=== PATIENT | male | born 1945 | race Caucasian/White ===

== ENCOUNTER 2025-04-08 08:43 | Inpatient (IN) | payer OTHER ==
[2025-04-08 09:32] LABS: Absolute Lymphocytes (CBC) 0.5 K/uL (0.7-4.9); Hematocrit 31.4 % (39.6-49.0); Hemoglobin 10.3 g/dL (13.6-17.9); MCH 29.1 pg (27.0-35.0); MCHC 33.0 g/dL (32.0-36.0); MCV 88.3 fL (80-100); MPV 11.3 fL (7.6-11.3); Nucleated RBC Absolute Count 0.0 (0-0); Nucleated Red Blood Cells % 0.0 % (0-0); RBC Red Blood Cell Count 3.55 M/uL (4.33-5.43); White Blood Count 9.90 thou/uL (4.3-10.9)
--- NOTE | 2025-04-08 09:32 | EDPHYS ---
Physician Documentation [facility] Name: Washington Miner Age: 79 yrs Sex: Male : 1945 Arrival Date: 04/08/2025 Time: 08:43 Bed 13 Private MD: ED Physician Mariella Marin HPI: 04/08 08:56 This 79 yrs old Male presents to ER via Unassigned with complaints of Hip Injury, Fall sp3 Injury. 08:56 79-year-old male with history of diabetes, hypertension, CAD, on Eliquis now presents sp3 to the ED with a mechanical fall in his bathroom earlier today with left hip pain and deformity who arrives via EMS. No other injuries noted including head injury, neck pain, or other body pain. ROS otherwise negative and patient states no medical prodrome prior to the fall.. Historical: - Allergies: 08:59 No Known Allergies; iw - Home Meds: 10:43 Eliquis 5 mg oral tablet 2 times per day [Active]; atorvastatin 40 mg oral tablet daily iw [Active]; carvedilol 25 mg oral tablet 2 times per day [Active]; hydralazine 100 mg oral tablet 2 times per day [Active]; isosorbide dinitrate 10 mg oral tablet 2 times per day [Active]; aspirin 81 mg Oral capsule daily [Active]; Bumex Oral 2 mg twice a day [Active]; gabapentin 300 mg oral capsule 2 caps 2 times per day [Active]; - PMHx: 08:59 Diabetes mellitus; CAD; iw - PSHx: 08:59 pacemaker/defib; right femoral bypass; left femoral stent; iw - Immunization history:: Adult Immunizations up to date. - Infectious Disease History:: Denies. - Social history:: Smoking status: Patient reports the use of cigarette tobacco products, 1 pack every 3 days. ROS: 08:57 Constitutional: Negative for fever, chills, and weight loss, Eyes: Negative for injury, sp3 pain, redness, and discharge, Cardiovascular: Negative for chest pain, palpitations, and edema, Respiratory: Negative for shortness of breath, cough, wheezing, and pleuritic chest pain, Abdomen/GI: Negative for abdominal pain, nausea, vomiting, diarrhea, and constipation, Back: Negative for injury and pain, Skin: Negative for injury, rash, and discoloration, Neuro: Negative for headache, weakness, numbness, tingling, and seizure, Psych: Negative for depression, anxiety, suicide ideation, homicidal ideation, and hallucinations, Allergy/Immunology: Negative for hives, rash, and allergies, Endocrine: Negative for neck swelling, polydipsia, polyuria, polyphagia, and marked weight changes, Hematologic/Lymphatic: Negative for swollen nodes, abnormal bleeding, and unusual bruising, 08:57 All other systems are negative, Exam: 08:57 Constitutional: This is a well developed, well nourished patient who is awake, alert, sp3 and in no acute distress. Head/Face: Normocephalic, atraumatic. Neck: Trachea midline, no thyromegaly or masses palpated, and no cervical lymphadenopathy. Supple, full range of motion without nuchal rigidity, or vertebral point tenderness. No Meningismus. Chest/axilla: Normal chest wall appearance and motion. Nontender with no deformity. No lesions are appreciated. Cardiovascular: Regular rate and rhythm with a normal S1 and S2. No gallops, murmurs, or rubs. Normal PMI, no JVD. No pulse deficits. Respiratory: Lungs have equal breath sounds bilaterally, clear to auscultation and percussion. No rales, rhonchi or wheezes noted. No increased work of breathing, no retractions or nasal flaring. Abdomen/GI: Soft, non-tender, with normal bowel sounds. No distension or tympany. No guarding or rebound. No evidence of tenderness throughout. Back: No spinal tenderness. No costovertebral tenderness. Full range of motion. Skin: Warm, dry with normal turgor. Normal color with no rashes, no lesions, and no evidence of cellulitis. Neuro: Awake and alert, GCS 15, oriented to person, place, time, and situation. Cranial nerves II-XII grossly intact. Motor strength 5/5 in all extremities. Sensory grossly intact. Cerebellar exam normal. Normal gait. 08:57 Musculoskeletal/extremity: Left hip pain, external rotation and shortening of the leg. Distal pulses are normal.. 09:27 ECG was reviewed by the Attending Physician. Electronic pacemaker with adequate sp3 ventricular capture at 81 bpm Vital Signs: 08:58 BP 136 / 65; Pulse 83; Resp 16; Temp 97.6; Pulse Ox 100% on R/A; Weight 86.18 kg; iw Height 6 ft. 0 in. ; Pain 7/10; 10:48 BP 127 / 64; Pulse 88; Resp 18; Pulse Ox 98% on R/A; iw 08:58 Body Mass Index 25.77 (86.18 kg, 182.88 cm) iw 08:58 Pain Scale: Adult iw MDM: 08:47 Medical Screening Exam initiated sp3 08:57 Data reviewed: vital signs, nurses notes, EMS record, lab test result(s), EKG, sp3 radiologic studies. ED course: 79-year-old male with mechanical fall on left hip injury. Differential diagnosis includes left hip fracture, left hip contusion, other femur fracture, acetabular fracture, among others. Clinically I ruled out any medical event that would incite the fall. Will admit under internal medicine once fracture type is elucidated. Dr. Durand is on-call for orthopedics.. 09:27 ED course: Left intertrochanter fracture noted. Discussed with Dr. Durand who will sp3 await medical clearance for possible surgery tomorrow. Will admit to hospitalist service. Pain is currently controlled.. 04/08 08:48 Order name: Basic Metabolic Panel; Complete Time: 09:58 sp3 04/08 08:48 Order name: CBC with Diff; Complete Time: 10:57 sp3 04/08 08:48 Order name: LFT's; Complete Time: 09:58 sp3 04/08 08:48 Order name: Magnesium; Complete Time: 09:58 sp3 04/08 08:48 Order name: NT PRO-BNP; Complete Time: 09:58 sp3 04/08 08:48 Order name: PT-INR; Complete Time: 09:52 sp3 04/08 08:48 Order name: Troponin HS; Complete Time: 09:58 sp3 04/08 10:49 Order name: CBC Smear Scan; Complete Time: 10:57 EDMS 04/08 08:48 Order name: XRAY Chest (1 view); Complete Time: 09:52 sp3 04/08 08:48 Order name: Hip Left 2 View XRAY; Complete Time: 09:52 sp3 04/08 10:26 Order name: Echo with Doppler EDMS 04/08 08:48 Order name: EKG; Complete Time: 08:51 sp3 04/08 08:48 Order name: Cardiac monitoring; Complete Time: : sp3 04/08 08:48 Order name: EKG - Nurse/Tech; Complete Time: sp3 04/08 08:48 Order name: IV Saline Lock; Complete Time: sp3 04/08 08:48 Order name: Labs collected and sent; Complete Time: sp3 04/08 08:48 Order name: O2 Per Protocol; Complete Time: sp3 04/08 08:48 Order name: O2 Sat Monitoring; Complete Time: sp3 04/08 08:48 Order name: NPO; Complete Time: sp3 Administered Medications: 12:33 Not Given (Patient Refused): morphineor iv 4 mg IVP See Administration Instructions iw over 4 mins; PRN pain x 1 12:33 Not Given (Patient Refused): ondansetron 4 mg IVP See Administration Instructions; over iw 2 minutes x 1 PRN nausea Disposition Summary: 04/08/25 09:31 Hospitalization Ordered Notes: Hospitalization Status: Inpatient Admission sp3 Provider: Eddie Horton sp3 Location: Telemetry/MedSurg (Inpatient) sp3 Condition: Stable sp3 Problem: new sp3 Symptoms: have worsened sp3 Bed/Room Type: Standard sp3 Room Assignment: [facility](04/08/25 10:58) bc6 Diagnosis - Left hip fracture, mechanical fall sp3 Forms: - Medication Reconciliation Form sp3 - SBAR form sp3 - Leadership Thank You Letter sp3 Signatures: Dispatcher [employer] Blanca Ga RN RN Mariella Marin MD MD sp3 Jie Egan bc6 Corrections: (The following items were deleted from the chart) 08:51 08:51 Hip Left 2 View+RAD.RAD.BRZ ordered. JOSESC JOSESC 10:46 08:59 Home Meds: Eliquis 5 mg oral tablet 2 times per day; [facility] 10:46 09:31 Home Meds: atorvastatin oral every day at bedtime; [facility] 46 09:31 Home Meds: carvedilol oral 2 times per day; [facility] 10:46 09:31 Home Meds: Hydralazine Oral daily; [facility] 1046 09:31 Home Meds: Isosorbide Dinitrate Oral; iw 10:58 09:31 sp3 bc6
--- NOTE | 2025-04-08 09:32 | ER ---
Nurse's Notes [facility] Name: Washington Miner Age: 79 yrs Sex: Male : 1945 Arrival Date: 04/08/2025 Time: 08:43 Bed 13 Private MD: Diagnosis: Left hip fracture, mechanical fall Presentation: 04/08 08:46 Chief complaint: EMS states: pt was attempting to stand, change into his day clothes, iw his legs got tangled up and he fell, normally uses a wheelchair due to decreased sensation in legs, he was on the floor for approx 90 minutes, left hip rotated and shortened. 08:46 Acuity: AUGUSTUS 3 iw 08:58 Coronavirus screen: At this time, the client does not indicate any symptoms associated iw with coronavirus-19. Ebola Screen: No symptoms or risks identified at this time. Initial Sepsis Screen: Does the patient meet any 2 criteria? No. Patient's initial sepsis screen is negative. Does the patient have a suspected source of infection? No. Patient's initial sepsis screen is negative. Risk Assessment: Do you want to hurt yourself or someone else? Patient reports no desire to harm self or others. Onset of symptoms was April 08, 2025. 08:58 Method Of Arrival: EMS: [facility] iw Historical: - Allergies: 08:59 No Known Allergies; iw - Home Meds: 10:43 Eliquis 5 mg oral tablet 2 times per day [Active]; atorvastatin 40 mg oral tablet daily iw [Active]; carvedilol 25 mg oral tablet 2 times per day [Active]; hydralazine 100 mg oral tablet 2 times per day [Active]; isosorbide dinitrate 10 mg oral tablet 2 times per day [Active]; aspirin 81 mg Oral capsule daily [Active]; Bumex Oral 2 mg twice a day [Active]; gabapentin 300 mg oral capsule 2 caps 2 times per day [Active]; - PMHx: 08:59 Diabetes mellitus; CAD; iw - PSHx: 08:59 pacemaker/defib; right femoral bypass; left femoral stent; iw - Immunization history:: Adult Immunizations up to date. - Infectious Disease History:: Denies. - Social history:: Smoking status: Patient reports the use of cigarette tobacco products, 1 pack every 3 days. Screenin:48 [facility] ED Fall Risk Assessment (Adult) History of falling in the last 3 months, iw including since admission Yes- single mechanical fall (1 pt) Confusion or Disorientation No (0 pts) Intoxicated or Sedated No (0 pts) Impaired Gait Yes (1 pt) Mobility Assist Device Used Yes (1 pt) Altered Elimination No (0 pt) Score/Fall Risk Level 3 or more points = High Risk Oriented to surroundings, Maintained a safe environment. Abuse screen: Denies threats or abuse. Nutritional screening: No deficits noted. Tuberculosis screening: No symptoms or risk factors identified. Assessment: 09:27 General: Appears in no apparent distress. Behavior is calm, cooperative. Pain: iw Complains of pain in left hip Pain does not radiate. Pain currently is 7 out of 10 on a pain scale. Is continuous. Neuro: Level of Consciousness is awake, alert, obeys commands, Oriented to person, place, time, situation, Moves all extremities. Cardiovascular: Patient's skin is warm and dry. Respiratory: Respiratory effort is even, unlabored, Respiratory pattern is regular, symmetrical. GI: Abdomen is flat, non-distended. Derm: Skin is intact. Musculoskeletal: Range of motion: limited in left hip. 10:46 Reassessment: Patient appears in no apparent distress at this time. iw Vital Signs: 08:58 BP 136 / 65; Pulse 83; Resp 16; Temp 97.6; Pulse Ox 100% on R/A; Weight 86.18 kg; iw Height 6 ft. 0 in. ; Pain 7/10; 10:48 BP 127 / 64; Pulse 88; Resp 18; Pulse Ox 98% on R/A; iw 08:58 Body Mass Index 25.77 (86.18 kg, 182.88 cm) iw 08:58 Pain Scale: Adult iw ED Course: 08:44 Patient arrived in ED. iw 08:45 Blanca Lentz, RN is Primary Nurse. iw 08:47 Mariella Marin MD is Attending Physician. sp3 08:58 Triage completed. iw 09:01 Arm band placed on. iw 09:26 XRAY Chest (1 view) In Process Unspecified. EDMS 09:26 Hip Left 2 View XRAY In Process Unspecified. EDMS 09:26 Initial lab(s) drawn, by me, sent to lab. Maintain EMS IV. Dressing intact. Good blood iw return noted. Site clean \T\ dry. Gauge \T\ site: 20 RAC. Flushed with 10 mL NS. 09:29 Eddie Horton is Hospitalizing Provider. sp3 10:49 Patient has correct armband on for positive identification. Placed in gown. Bed in low iw position. Side rails up X2. Provided Education on: admission. Client placed on continuous cardiac and pulse oximetry monitoring. NIBP monitoring applied. habilitative interventionist on. 12:34 No provider procedures requiring assistance completed. Patient admitted, IV remains in iw place. Administered Medications: 12:33 Not Given (Patient Refused): morphineor iv 4 mg IVP See Administration Instructions iw over 4 mins; PRN pain x 1 12:33 Not Given (Patient Refused): ondansetron 4 mg IVP See Administration Instructions; over iw 2 minutes x 1 PRN nausea Medication: 09:28 VIS not applicable for this client. iw Outcome: :31 Decision to Hospitalize by Provider. sp3 12:34 Admitted to Med/surg accompanied by tech, room 413, iw 12:34 Condition: good 12:34 Discharge instructions given to patient, Instructed on the need for admit, Demonstrated understanding of instructions, 12:34 Patient left the ED. iw Signatures: Dispatcher [employer] EDMS Blanca Lentz RN RN iw Mariella Marin MD MD sp3 Corrections: (The following items were deleted from the chart) 10:46 08:59 Home Meds: Eliquis 5 mg oral tablet 2 times per day; iw iw 10:46 09:31 Home Meds: atorvastatin oral every day at bedtime; iw iw 46 09:31 Home Meds: carvedilol oral 2 times per day; iw iw 10:46 09:31 Home Meds: Hydralazine Oral daily; iw iw :46 09:31 Home Meds: Isosorbide Dinitrate Oral; iw iw
--- NOTE | 2025-04-08 09:38 | RAD REPORT ---
EXAMINATION: ONE VIEW CHEST XR CLINICAL INDICATION: Male, 79 years old., Fall. Pre-op. Hypertension TECHNIQUE: Frontal chest projection is submitted. Examination is limited by patient positioning and t echnique. COMPARISON: No prior exam. FINDINGS: The lungs are well inflated and clear of focal consolidation. Central interstitial prominence. No pn eumothorax or sizable effusion. Moderate cardiomegaly with left chest wall pacer/AICD in place. Mediastinal contours are otherwise unremarkable. IMPRESSION: Findings suggestive of central congestion or CHF.
[2025-04-08 09:39] LABS: PT Prothrombin Time 17.5 SECONDS (10-13.0); Protime INR 1.57
--- NOTE | 2025-04-08 09:40 | RAD REPORT ---
EXAMINATION: Hip Left 2 View CLINICAL INDICATION: Male, 79 years old. BR MAIN DEFORMITY Bed Name: 13 TECHNIQUE: 2 view radiograph of the left hip were obtained. COMPARISON: No prior exam. FINDINGS: Left intertrochanteric comminuted fracture with displaced fragment at the base of the lesse r trochanter. Mild hip joint degenerative changes. No Other focal bone lesion. Vascular calcifications, stents, and surgical clips in place. IMPRESSION: Left intertrochanteric comminuted fracture with displaced fragment at the base of the lesser trochant er.
[2025-04-08 09:55] LABS: ALT/SGPT 23.0 U/L (16-61); AST/SGOT 16.0 U/L (15-37); Albumin 3.2 g/dL (3.4-5.0); Albumin/Globulin Ratio 0.9 (1.1-1.8); Alkaline Phosphatase 106.0 U/L (45-117); Anion Gap 13.4 mEq/L (5.0-15.0); BUN Blood Urea Nitrogen 84.0 mg/dL (7-18); Bilirubin Indirect, Calculated 0.5 mg/dL (0.2-0.8); Globulin 3.7 g/dL (2.3-3.5); Glucose Level 230.0 mg/dL (74-106); Magnesium 2.6 mg/dL (1.6-2.4); NT PRO-BNP 6980.0 pg/mL (<450); Potassium 4.4 mEq/L (3.5-5.1); Troponin High Sensitivity 33.1 pg/mL (<58.9)
[2025-04-08] MEDS ORDERED: MORPHINE 2 MG/ML SYR IV PRN ×2 (10:24→14:29)
[2025-04-08 10:48] LABS: White Blood Cell Scan OK (OK)
[2025-04-08 10:49] LABS: Blood Morphology Comment NOT SEEN (NOT SEEN)
[2025-04-08] MEDS: INSULIN REGULAR (HUMAN) 100 UNIT/ML SQ SCH (12:55)
[2025-04-08] MEDS: HYDROCODONE/APAP 5/325 MG TAB PO PRN (12:55)
--- NOTE | 2025-04-08 13:15 | CON ---
Date of Consultation: 04/08/2025 History Of Present Illness: This is my first time seeing this patient to my knowledge. The patient is normally in a wheelchair; however, he does stand using furniture to become dressed. Unfortunately , his hand slipped on the furniture and he fell injuring his left side. He was seen and examined in the emergency department where he was ruled out for other injuries; however, x-rays demonstrated a co mplex comminuted proximal femur fracture consistent with a multipart intertrochanteric fracture with perhaps subtrochanteric extension. On seeing him today, all his long bones and joints are palpated w ithout pain or crepitation with the exception of pain with any movement or manipulation of his left l ower extremity. He does have a history of bilateral neuropathy. However, the right appears to be wo rse than left, however, I did not see any prior injury to the right lower extremity. Review of x-rays do confirm complex comminuted proximal femur fracture. Assessment: An 79-year-old gentleman who uses a wheelchair, but does stand at times. Now, with a co mplex fracture of the left proximal femur. Risks, benefits, and alternatives of different methods of treating this were discussed with him and at this time, he will be admitted to the hospitalist to un dergo clearance as he does have multiple medical problems by report. Most likely, will proceed with operative closed reduction with intramedullary marielle fixation or other fixation tomorrow. He is on Stefany emerald, but did not take any today and will hold that as well. All of his questions were otherwise inv ited and answered. CHARO Voice ID: [id number] Report ID: [id number]
--- NOTE | 2025-04-08 14:36 | P.HP ---
Certification for Inpatient Patient admitted to: Inpatient With expected LOS: >2 Midnights Patient will require the following post-hospital care: None Practitioner: I am a practitioner with admitting privileges, knowledge of patient current condition, hospital course, and medical plan of care. Services: Services provided to patient in accordance with Admission requirements found in Title 42 Section 412.3 of the Code of Federal Regulations Patient History Date of Service: 04/08/25 Reason for admission: Left hip fracture History of Present Illness: 79-year-old male with history of CHF, atrial fibrillation, CKD 4 presents the emergency department chief complaint of fall, left hip pain. He is typically primarily wheelchair-bound but is able to stand and perform transfers without assistance, he was trying to slide his pants on today when he fell onto his left side which caused a left-sided hip fracture. Patient was evaluated in the emergency department his labs were significant for a creatinine of 3.43, GFR of 17, glucose of 210, troponin of 33.1, BNP of 6980, hip x-ray was performed which showed left intertrochanteric comminuted fracture with displaced fragments at the base of the lesser trochanter, additionally chest x-ray showed findings suggestive of central congestion or CHF. ED physician discussed case with orthopedics, patient will be admitted to the hospitalist service for perioperative evaluation and subsequent management of the left femur fracture Allergies No Known Allergies Allergy (Unverified 04/08/25 10:35) - Past Medical/Surgical History -: CHF -: A-fib -: Insulin-dependent diabetes -: CKD 4 -: PAD -: Pacemaker/defibrillator -: Femoropopliteal bypass - Social History Smoking Status: Current every day smoker Place of Residence: Home Review of Systems 10-point ROS is otherwise unremarkable Musculoskeletal: Leg Pain, Other (Left hip pain) Physical Examination - Vital Signs Temperature: 97.2 F Blood Pressure: 143/63 Pulse: 87 Respirations: 18 Pulse Ox (%): 98 - Physical Exam General: Alert, In no apparent distress, Oriented x3 HEENT: Atraumatic, PERRLA, EOMI, Sclerae nonicteric Neck: Supple, 2+ carotid pulse no bruit, No LAD, Without JVD or thyroid abnormality Respiratory: Clear to auscultation bilaterally, Normal air movement Cardiovascular: Regular rate/rhythm, Normal S1 S2 Gastrointestinal: Normal bowel sounds, No tenderness Musculoskeletal: No tenderness Integumentary: No rashes Neurological: Normal speech, Normal strength at 5/5 x4 extr, Normal affect - Studies Laboratory Data (last 24 hrs) 04/08/25 04/08/25 04/08/25 09:24 09:24 09:24 WBC 9.90 Hgb 10.3 L Hct 31.4 L Plt Count 121 L PT 17.5 H INR 1.57 Sodium 139 Potassium 4.4 BUN 84 H Creatinine 3.43 H Glucose 230 H Magnesium 2.6 H Total Bilirubin 0.7 AST 16 ALT 23 Alkaline Phosphatase 106 Assessment and Plan - Plan Assessment: Left intertrochanteric femur fracture Atrial fibrillation on chronic anticoagulation with pacemaker/defibrillator in place Chronic CHFunknown EF CKD 4 Diabetes mellitus type 2insulin-dependent Neuropathy Hypertension Tobacco use disorder Plan: Left intertrochanteric femur fracture Orthopedics consult, n.p.o. after midnight Preoperative evaluation including cardiology and nephrology consultations placed PT after surgery per Ortho Atrial fibrillation on chronic anticoagulation with pacemaker/defibrillator in place Chronic CHFunknown EF Echocardiogram ordered, cardiology consultation placed Denies chest pain, dyspnea Not grossly overloaded on exam CKD 4 Believe this is similar to his baseline No previous labs available for review at this time Consultations placed for patient's primary silver chaser Diabetes mellitus type 2insulin-dependent ACHS Accu-Chek, sliding scale insulin Neuropathy Hypertension PAD Continue home medications when verified Tobacco use disorder Counseled on need for cessation DVT PPX: SCD Code status: Full Discharge Plan: Home Plan to discharge in: Greater than 2 days - Advance Directives Does patient have a Living Will: No Does patient have a Durable POA for Healthcare: No - Code Status/Comfort Care Code Status Assessed: Yes (Full code) Critical Care: No Time Spent Managing Pts Care (In Minutes): 68
[2025-04-08] MEDS: MORPHINE 4 MG/ML SYR IV PRN (15:00)
--- NOTE | 2025-04-08 17:28 | P.CNS ---
Date of Consult: 04/08/25 Chief Complaint: Left hip fracture History of Present Illness: Patient with PMH of HFrEF S/P ICD/PM placement, NON ischemic in nature, AF, PAD, CKD Stage 4, presented with mechanical fall and left hip fracture, cardiology were consulted for clearance and optimization. patient denies chest pain, no palpitations, no syncope. Allergies No Known Allergies Allergy (Unverified 04/08/25 10:35) Home medications list reviewed: Yes - Past Medical/Surgical History -: CHF -: A-fib -: Insulin-dependent diabetes -: CKD 4 -: PAD -: Pacemaker/defibrillator -: Femoropopliteal bypass - Social History Place of Residence: Home Review of Systems 10-point ROS is otherwise unremarkable Physical Examination Temp Pulse Resp BP Pulse Ox 98.2 F 88 18 129/60 96 04/08/25 16:00 04/08/25 16:00 04/08/25 16:00 04/08/25 16:00 04/08/25 16:00 General: Alert, In no apparent distress HEENT: Atraumatic, PERRLA, Mucous membr. moist/pink, EOMI, Sclerae nonicteric Neck: Supple, 2+ carotid pulse no bruit, No LAD, Without JVD or thyroid abnormality Respiratory: Clear to auscultation bilaterally, Normal air movement Cardiovascular: Regular rate/rhythm, Normal S1 S2 Gastrointestinal: Normal bowel sounds, No tenderness Musculoskeletal: No tenderness Integumentary: No rashes Neurological: Normal gait, Normal speech, Normal tone, Normal affect Lymphatics: No axilla or inguinal lymphadenopathy Laboratory Data (last 24 hrs) 04/08/25 04/08/25 04/08/25 09:24 09:24 09:24 WBC 9.90 Hgb 10.3 L Hct 31.4 L Plt Count 121 L PT 17.5 H INR 1.57 Sodium 139 Potassium 4.4 BUN 84 H Creatinine 3.43 H Glucose 230 H Magnesium 2.6 H Total Bilirubin 0.7 AST 16 ALT 23 Alkaline Phosphatase 106 - Problems (1) Preoperative clearance Current Visit: Yes Status: Acute Plan: Patient with known history of heart failure reduced EF, patient has been worked up for ischemia before and it was ruled out, patient already have a PM/ICD in place, patient with no signs of volume overload and elevated BNP can be secondary to his Advanced kidney disease. Echo has been ordered and it will be done in the morning but that doesn't change the fact that patient is at least Intermediate risk for Cardiovascular problems. No more cardiac intervention needed prior to his surgery. (2) Chronic combined systolic and diastolic heart failure Current Visit: Yes Status: Acute Plan: patient is currently euvolemic on exam advise to reconcile patient home medications. (3) Atrial fibrillation Current Visit: Yes Status: Acute Plan: with history of ablation, agree with holding Eliquis until after surgery but it will needed to be restarted ELOY after surgery.
--- NOTE | 2025-04-08 19:41 | P.CNS ---
Date of Consult: 04/08/25 Reason for Consult: CKD IV Requesting Physician: milton malagon Chief Complaint: Left hip fracture History of Present Illness: 79-year-old male with history of CHF, atrial fibrillation, CKD 4 presents the emergency department chief complaint of fall, left hip pain. He is typically primarily wheelchair-bound but is able to stand and perform transfers without assistance, he was trying to slide his pants on today when he fell onto his left side which caused a left-sided hip fracture. Patient was evaluated in the emergency department his labs were significant for a creatinine of 3.43, GFR of 17, glucose of 210, troponin of 33.1, BNP of 6980, hip x-ray was performed which showed left intertrochanteric comminuted fracture with displaced fragments at the base of the lesser trochanter, additionally chest x-ray showed findings suggestive of central congestion or CHF. ED physician discussed case with orthopedics, patient will be admitted to the hospitalist service for perioperative evaluation and subsequent management of the left femur fracture 08:56 This 79 yrs old Male presents to ER via Unassigned with complaints of Hip Injury, Fall sp3 Injury. 08:56 79-year-old male with history of diabetes, hypertension, CAD, on Eliquis now presents sp3 to the ED with a mechanical fall in his bathroom earlier today with left hip pain and deformity who arrives via EMS. No other injuries noted including head injury, neck pain, or other body pain. ROS otherwise negative and patient states no medical prodrome prior to the fall. Allergies No Known Allergies Allergy (Unverified 04/08/25 10:35) Home medications list reviewed: Yes - Past Medical/Surgical History Diabetic: No -: Systolic Diastolic CHF -: Afib -: DM II with Polyneuropathy -: CKD 4 with Proteinuria (Dr. Francis/ Wes) -: CAD/ PAD/ Carotid Stenosis -: BPH -: Nephrolithiasis -: HLD -: Pacemaker/defibrillator -: Femoropopliteal bypass -: Cholecystectomy - Social History Smoking Status: Former smoker Alcohol use: No CD- Drugs: No Caffeine use: No Place of Residence: Home Review of Systems 10-point ROS is otherwise unremarkable Musculoskeletal: Leg Pain (Left Hip Pain) Physical Examination Temp Pulse Resp BP Pulse Ox 98.2 F 88 18 129/60 96 04/08/25 16:00 04/08/25 16:00 04/08/25 16:00 04/08/25 16:00 04/08/25 16:00 General: In no apparent distress, Oriented x3, Cooperative HEENT: Atraumatic Neck: Supple Respiratory: Normal air movement Cardiovascular: No edema, Regular rate/rhythm Gastrointestinal: Soft and benign, Non-distended Musculoskeletal: No clubbing, No contractures Integumentary: No rashes, No cyanosis Neurological: Normal speech Laboratory Data (last 24 hrs) 04/08/25 04/08/25 04/08/25 09:24 09:24 09:24 WBC 9.90 Hgb 10.3 L Hct 31.4 L Plt Count 121 L PT 17.5 H INR 1.57 Sodium 139 Potassium 4.4 BUN 84 H Creatinine 3.43 H Glucose 230 H Magnesium 2.6 H Total Bilirubin 0.7 AST 16 ALT 23 Alkaline Phosphatase 106 Imagings Data: EXAMINATION: ONE VIEW CHEST XR CLINICAL INDICATION: Male, 79 years old., Fall. Pre-op. Hypertension TECHNIQUE: Frontal chest projection is submitted. Examination is limited by patient positioning and technique. COMPARISON: No prior exam. FINDINGS: The lungs are well inflated and clear of focal consolidation. Central interstitial prominence. No pneumothorax or sizable effusion. Moderate cardiomegaly with left chest wall pacer/AICD in place. Mediastinal contours are otherwise unremarkable. IMPRESSION: Findings suggestive of central congestion or CHF. EXAMINATION: Hip Left 2 View CLINICAL INDICATION: Male, 79 years old. [facility] Bed Name: TECHNIQUE: 2 view radiograph of the left hip were obtained. COMPARISON: No prior exam. FINDINGS: Left intertrochanteric comminuted fracture with displaced fragment at the base of the lesser trochanter. Mild hip joint degenerative changes. No Other focal bone lesion. Vascular calcifications, stents, and surgical clips in place. IMPRESSION: Left intertrochanteric comminuted fracture with displaced fragment at the base of the lesser trochanter. Conclusions/Impression: 79 yo WM presents to the ER with a Left Femur Fracture following a fall CKD IV with Proteinuria -No NSAIDs HTN with CKD/ CHF Paroxysmal Afib -Hold antihypertensives at this time Systolic Diastolic CHF, chronic LVEF 30% -Echocardiogram pending -Low sodium diet DM II with CKD & PolyNeuropathy -RISS -Start Gabapenting BID Anemia in chronic illness/ CKD Thrombocytopenia -Monitor H&H -Retacrit prn CKD MBD Secondary HyperParathyroidism -Start Cholecalciferol Hospitalist and ER notes reviewed Thank you kindly for the consultation
[2025-04-08] MEDS: DOCUSATE NA 100 MG CAP PO SCH (21:33)
[2025-04-08] MEDS: GABAPENTIN 300 MG CAP PO SCH (21:34)
[2025-04-09 05:11] LABS: Absolute Lymphocytes (CBC) 0.7 K/uL (0.7-4.9); Hematocrit 25.2 % (39.6-49.0); Hemoglobin 8.5 g/dL (13.6-17.9); MCH 29.5 pg (27.0-35.0); MCHC 33.6 g/dL (32.0-36.0); MCV 87.7 fL (80-100); MPV 11.3 fL (7.6-11.3); Nucleated RBC Absolute Count 0.0 (0-0); Nucleated Red Blood Cells % 0.0 % (0-0); RBC Red Blood Cell Count 2.88 M/uL (4.33-5.43); White Blood Count 8.40 thou/uL (4.3-10.9)
[2025-04-09 05:26] LABS: Anion Gap 8.1 mEq/L (5.0-15.0); BUN Blood Urea Nitrogen 80.0 mg/dL (7-18); Glucose Level 233.0 mg/dL (74-106); Potassium 4.1 mEq/L (3.5-5.1); Uric Acid 11.1 mg/dL (3.5-7.2)
[2025-04-09] MEDS: BUMETANIDE 1 MG TABLET PO SCH (08:33)
[2025-04-09] MEDS: VITAMIN D 5,000 UNIT CAP PO SCH (08:33)
[2025-04-09 09:12] LABS: Sqamous Epithelial None Seen /HPF (None Seen); Urine Crystals Unidentified Few /HPF (None Seen); Urine Culture Reflex Order REFLEXED; Urine Microscopic Reflex YN ORDER UMIC; Urine WBC Clump Rare /HPF (None Seen); Urine Yeast (Budding) Trace /HPF (None Seen)
[2025-04-09] MEDS ORDERED: FENTANYL CITR 100 MCG/2 ML ONE (09:21)
[2025-04-09] MEDS ORDERED: LIDOCAINE 1% MPF 5 ML VIAL ONE (09:21)
[2025-04-09] MEDS: TRANEXAMIC ACID 1,000 MG/10 ML VIAL IV ONE (09:38)
[2025-04-09] MEDS: NA CHLORIDE 0.9% 1,000 ML ONE (09:42)
[2025-04-09] MEDS ORDERED: EPHEDRINE SULF 50 MG/ML VIAL ONE (10:17)
[2025-04-09] MEDS: CEFAZOLIN SODIUM 1 GM/VIAL ONE (10:25)
--- NOTE | 2025-04-09 10:56 | P.BOP ---
Preoperative diagnosis: left comminuted proximal femur fracture Postoperative diagnosis: same Primary procedure: left SOLEDAD marielle Estimated blood loss: 100 ccs Anesthesia: General Complications: None Transferred to: Recovery Room Condition: Good
[2025-04-09 11:28] LABS: MA/CREAT RATIO 550.0 (< 30.0); UR CREAT 92.0 mg/dL (20-370); UR MICROALBUMIN 50.6 mg/dL (< 1.9)
--- NOTE | 2025-04-09 12:09 | RAD REPORT ---
EXAM: Fluoroscopy use, LEFT HIP RODDING HISTORY: COMPARISON: FINDINGS: Multiple images were sent to PACS, during a fluoroscopically guided procedure. No radiologi st was involved in protocoling or performance of the study, and no radiologist was present for the duration of the procedure. No interpretation of the saved images will be provided. Total fluoroscopy time: 0.6S IMPRESSION: Documentation of fluoroscopy use as above. Transcribed Date/Time: 04/09/2025 12:08 PM
--- NOTE | 2025-04-09 13:55 | ECHO ---
HEIGHT: 5 ft 6 in WEIGHT: 180 lb 0 oz DATE OF STUDY: 04/09/[address]: Jamarcus Andrews NP 2-DIMENSIONAL: YES M.MODE: YES DOPPLER: YES COLOR FLOW: YES TDS: PORTABLE: YES DEFINITY: BUBBLE STUDY: DIAGNOSIS: CONGESTIVE HEART FAILURE CARDIAC HISTORY: CATHERIZATION: SURGERY: PROSTHETIC VALVE: PACEMAKER: MEASUREMENTS (cm) DIASTOLIC (NORMALS) SYSTOLIC (NORMALS) IVSd 1.2 (0.6-1.2) LA Diam 3.9 (1.9-4.0) LVEF 40-45% LVIDd 5.4 (3.5-5.7) LVIDs 4.2 (2.0-3.5) %FS 21% LVPWd 1.2 (0.6-1.2) Ao Diam 2.6 (2.0-3.7) 2 DIMENSIONAL ASSESSMENT: RIGHT ATRIUM: NORMAL LEFT ATRIUM: NORMAL RIGHT VENTRICLE: NORMAL LEFT VENTRICLE: NORMAL TRICUSPID VALVE: MILD TRICUSPID REGURGITATION MITRAL VALVE: MILD MITRAL REGURGITATION PULMONIC VALVE: NORMAL AORTIC VALVE: TRACE AORTIC REGURGITATION PERICARDIAL EFFUSION: NONE AORTIC ROOT: NORMAL LEFT VENTRICULAR WALL MOTION: MODERATE GLOBAL HYPOKINESIS DOPPLER/COLOR FLOW: DIASTOLIC DYFUNCTION COMMENTS: 1. MODERATE REDUCED LEFT VENTRICULAR SYSTOLIC FUNCTION, EJECTION FRACTION 40-45%, MODERATE GLOBAL HYPOKINESIS 2. DIASTOLIC DYSFUNCTION 3. NORMAL FILLING PRESSURE 4. MILD MITRAL REGURGITATION TECHNOLOGIST: LM WILDER
--- NOTE | 2025-04-09 14:58 | P.PN ---
Date of Service: 04/09/25 Subjective: No acute events overnight Now status post surgical repair of his left intertrochanteric femur fracture ROS: 10 point ROS as noted above, otherwise negative Physical exam GEN: Alert, oriented, NAD HEENT: Normal conjunctiva, sclera anicteric CV: Regular rate and rhythm, no edema Pulm: Nonlabored respirations on room air ABD: Soft, nontender, nondistended MSK: Dressing in place to left hip Integumentary: No rashes Neuro: Normal speech, normal affect Vitals reviewed Assessment: Left intertrochanteric femur fracture Atrial fibrillation on chronic anticoagulation with pacemaker/defibrillator in place Chronic CHFunknown EF CKD 4 Diabetes mellitus type 2insulin-dependent Neuropathy Hypertension Tobacco use disorder Plan: Left intertrochanteric femur fracture S/P repair with CR IM 04/09 PT per Ortho Atrial fibrillation on chronic anticoagulation with pacemaker/defibrillator in place Chronic CHFunknown EF Cardiology following Denies chest pain, dyspnea CKD 4 Believe this is similar to his baseline No previous labs available for review at this time 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
[2025-04-09] MEDS: CEFAZOLIN 1 GM in NA CHLORIDE 0.9% 50 ML IVPB SCH (16:39)
[2025-04-09] MEDS ORDERED: ISOSORBIDE DINITRATE 10 MG PO SCH (21:00)
--- NOTE | 2025-04-09 21:28 | P.PN ---
Date of Service: 04/09/25 Vital Signs Temp Pulse Resp BP Pulse Ox 98.3 F 97 H 18 141/67 H 99 04/09/25 16:00 04/09/25 16:00 04/09/25 16:00 04/09/25 16:00 04/09/25 16:00 Medications Hydrocodone Bitart/Acetaminophen (Hydrocodone/Apap 5/325 Mg Tab) 1 tab PO Q6H PRN PRN Reason: Pain scale 5-7 (Moderate) Last Admin: 04/08/25 12:55 Dose: 1 tab Apixaban (Apixaban 2.5 Mg Tablet) 2.5 mg PO BID [facility] Atorvastatin Calcium (Atorvastatin 40 Mg Tab) 40 mg PO BEDTIME [facility] Bumetanide (Bumetanide 1 Mg Tablet) 1 mg PO DAILY [facility] Last Admin: 04/09/25 08:33 Dose: Not Given Carvedilol (Carvedilol 25 Mg Tab) 25 mg PO BID [facility] Cholecalciferol (Vitamin D 5,000 Unit Cap) 5,000 unit PO DAILY [facility] Last Admin: 04/09/25 08:33 Dose: Not Given Docusate Sodium (Docusate Na 100 Mg Cap) 100 mg PO BID [facility] Last Admin: 04/09/25 08:33 Dose: Not Given Gabapentin (Gabapentin 300 Mg Cap) 300 mg PO BID [facility] Last Admin: 04/09/25 08:33 Dose: Not Given Cefazolin Sodium 1 gm/ Sodium (Chloride) 50 mls @ 100 mls/hr IVPB Q8HR [facility]; Protocol Stop: 04/10/25 09:29 Last Admin: 04/09/25 16:39 Dose: 50 mls Insulin Human Regular (Insulin Regular (Human) 100 Unit/Ml) 0 unit SQ ACHS [facility]; Protocol Last Admin: 04/09/25 16:37 Dose: 2 unit Isosorbide Dinitrate (Isosorbide Dinit 5 Mg Tab) 10 mg PO TID [facility] Morphine Sulfate (Morphine 4 Mg/Ml Syr) 2 mg IV Q4H PRN PRN Reason: Pain scale 8-10 (Severe) Last Admin: 04/09/25 04:25 Dose: 2 mg Assessment/ Plan: Nephrology No dyspnea No chest pain No acute events overnight Left hip pain Vitals, medications, blood work and imaging reviewed in the chart General: In no apparent distress, Oriented x3, Cooperative HEENT: Atraumatic Neck: Supple Respiratory: Normal air movement Cardiovascular: No edema, Regular rate/rhythm Gastrointestinal: Soft and benign, Non-distended Musculoskeletal: No clubbing, No contractures Integumentary: No rashes, No cyanosis Neurological: Normal speech Laboratory Data (last 24 hrs) 04/08/25 04/08/25 04/08/25 09:24 09:24 09:24 WBC 9.90 Hgb 10.3 L Hct 31.4 L Plt Count 121 L PT 17.5 H INR 1.57 Sodium 139 Potassium 4.4 BUN 84 H Creatinine 3.43 H Glucose 230 H Magnesium 2.6 H Total Bilirubin 0.7 AST 16 ALT 23 Alkaline Phosphatase 106 Imagings Data: EXAMINATION: ONE VIEW CHEST XR CLINICAL INDICATION: Male, 79 years old., Fall. Pre-op. Hypertension TECHNIQUE: Frontal chest projection is submitted. Examination is limited by patient positioning and technique. COMPARISON: No prior exam. FINDINGS: The lungs are well inflated and clear of focal consolidation. Central interstitial prominence. No pneumothorax or sizable effusion. Moderate cardiomegaly with left chest wall pacer/AICD in place. Mediastinal contours are otherwise unremarkable. IMPRESSION: Findings suggestive of central congestion or CHF. EXAMINATION: Hip Left 2 View CLINICAL INDICATION: Male, 79 years old. [facility] Bed Name: TECHNIQUE: 2 view radiograph of the left hip were obtained. COMPARISON: No prior exam. FINDINGS: Left intertrochanteric comminuted fracture with displaced fragment at the base of the lesser trochanter. Mild hip joint degenerative changes. No Other focal bone lesion. Vascular calcifications, stents, and surgical clips in place. IMPRESSION: Left intertrochanteric comminuted fracture with displaced fragment at the base of the lesser trochanter. LEFT VENTRICULAR WALL MOTION: MODERATE GLOBAL HYPOKINESIS DOPPLER/COLOR FLOW: DIASTOLIC DYFUNCTION COMMENTS: 1. MODERATE REDUCED LEFT VENTRICULAR SYSTOLIC FUNCTION, EJECTION FRACTION 40- 45%, MODERATE GLOBAL HYPOKINESIS 2. DIASTOLIC DYSFUNCTION 3. NORMAL FILLING PRESSURE 4. MILD MITRAL REGURGITATION Conclusions/Impression: 79 yo WM presents to the ER with a Left Femur Fracture following a fall CKD IV with Proteinuria -No NSAIDs HTN with CKD/ CHF Paroxysmal Afib -Continue Coreg Systolic Diastolic CHF, chronic LVEF 30% -Echocardiogram reviewed -Low sodium diet DM II with CKD & PolyNeuropathy -RISS -Continue Gabapenting BID Anemia in chronic illness/ CKD Thrombocytopenia -Monitor H&H -Retacrit prn CKD MBD Secondary HyperParathyroidism -Continue Cholecalciferol Hospitalist note reviewed
--- NOTE | 2025-04-09 21:52 | OP ---
Date of Procedure: 04/09/2025 Surgeon: Diogo Durand MD Preoperative Diagnosis: Left comminuted proximal femur fracture. Postoperative Diagnosis: Left comminuted proximal femur fracture. Procedure: Left closed reduction with intramedullary marielle fixation using Affixus nail system of left comminuted proximal femur fracture. Estimated Blood Loss: 100 cc. Complications: There were no complications. Specimens: No pathology specimens sent. Indications For Operation: Mr. Miner is an 79-year-old male who normally is in a wheelchair, altho ugh he does stand to dress. Unfortunately, his hand slipped off the dresser he was using for support and he fell onto his left lower extremity. He was seen and examined in the emergency department, wa s ruled out for other injuries; however, x-rays demonstrated a comminuted displaced left proximal fem ur fracture. He was admitted under the care of the hospitalist and risks, benefits, and alternatives of different methods of treating this were discussed with him and selection is for left closed reduc tion intramedullary marielle fixation. He says he understands things as presented and wishes to proceed. Description Of Procedure: The patient was taken to the operating room, placed in supine position. G eneral anesthesia was obtained by staff. Following this, he was then transferred to the operative fr acture table. He was then appropriately positioned on the fracture table with all bony prominences b eing checked and C-arm was brought into ensure good AP and lateral views. Following this, the left l ower extremity was then prepped and draped in usual sterile fashion for this procedure and C-arm was brought in to alexandra out the position of the greater trochanter. A vertical incision was made just pro ximal to the greater trochanter. Carefully through skin only. Meticulous hemostasis being maintaine d using Bovie electrocautery. This leads to the fascia and a small incision was made vertically in t he fascia. Upon placement of a finger, finger could easily palpate the tip of the greater trochanter . A starting awl was then used to establish the appropriate starting point. After this, guide marielle w as then placed across the fracture site without difficulty and hand edge bander was then used to establish a further entry port. A size 9 x 130 marielle was selected and placed to appropriate depth. The pin was removed. Cephalomedullary screw was then placed in standard fashion using biplanar C-arm radiograph y to ensure correct placement. Following this, an anti-rotation screw was then placed and checked an d a distal interlocking screw has been placed. After this, the marielle was removed. The fascia was clos ed using Vicryl sutures followed by closure of skin with Vicryl followed by marion. The patient was then placed in Aquacel dressing, awakened, and taken to recovery room in good condition. No complic ations. SE/MODL Voice ID: [id number] Report ID: [id number]
[2025-04-09] MEDS: ISOSORBIDE DINIT 5 MG TAB PO SCH (22:06)
[2025-04-09] MEDS: APIXABAN 2.5 MG TABLET PO SCH (22:07)
[2025-04-09] MEDS: ATORVASTATIN 40 MG TAB PO SCH (22:07)
[2025-04-10 07:26] LABS: Absolute Lymphocytes (CBC) 0.6 K/uL (0.7-4.9); Hematocrit 22.0 % (39.6-49.0); Hemoglobin 7.5 g/dL (13.6-17.9); MCH 29.9 pg (27.0-35.0); MCHC 34.0 g/dL (32.0-36.0); MCV 88.0 fL (80-100); MPV 10.9 fL (7.6-11.3); Nucleated RBC Absolute Count 0.0 (0-0); Nucleated Red Blood Cells % 0.0 % (0-0); RBC Red Blood Cell Count 2.49 M/uL (4.33-5.43); White Blood Count 8.80 thou/uL (4.3-10.9)
[2025-04-10 07:36] LABS: Anion Gap 11.3 mEq/L (5.0-15.0); BUN Blood Urea Nitrogen 85.0 mg/dL (7-18); Glucose Level 340.0 mg/dL (74-106); Potassium 4.3 mEq/L (3.5-5.1)
--- NOTE | 2025-04-10 11:55 | P.PN ---
Subjective Date of Service: 04/10/25 Chief Complaint: Left hip fracture Subjective: No C/O voiced (patient is s/p surgery, tolerated procedure well) Review of Systems 10-point ROS is otherwise unremarkable Physical Examination - Vital Signs Temperature: 98.5 F Blood Pressure: 112/59 Pulse: 96 Respirations: 18 Pulse Ox (%): 100 - Physical Exam General: Alert, In no apparent distress HEENT: Atraumatic, PERRLA, EOMI Neck: Supple, JVD not distended Respiratory: Clear to auscultation bilaterally, Normal air movement Cardiovascular: Regular rate/rhythm, Normal S1 S2 Gastrointestinal: Normal bowel sounds, No tenderness Musculoskeletal: No tenderness Integumentary: No rashes Neurological: Normal speech, Normal tone, Normal affect Lymphatics: No axilla or inguinal lymphadenopathy - Studies Medications List Reviewed: Yes Assessment And Plan - Current Problems (Diagnosis) (1) Preoperative clearance Current Visit: Yes Status: Acute Plan: Patient already done with surgery and tolerated procedure well. (2) Chronic combined systolic and diastolic heart failure Current Visit: Yes Status: Acute Plan: patient is currently euvolemic on exam continue coreg, isosorbide and bumex continue to monitor volume status. (3) Atrial fibrillation Current Visit: Yes Status: Acute Plan: with history of ablation, tele shows he is paced resume Eliquis 5 mg po BID if ok with surgery cardiology will sign off, please call with any questions.
--- NOTE | 2025-04-10 15:27 | P.PN ---
Date of Service: 04/10/25 Subjective: No acute events overnight Now status post surgical repair of his left intertrochanteric femur fracture ROS: 10 point ROS as noted above, otherwise negative Physical exam GEN: Alert, oriented, NAD HEENT: Normal conjunctiva, sclera anicteric CV: Regular rate and rhythm, no edema Pulm: Nonlabored respirations on room air ABD: Soft, nontender, nondistended MSK: Dressing in place to left hip Integumentary: No rashes Neuro: Normal speech, normal affect Vitals reviewed Assessment: Left intertrochanteric femur fracture Atrial fibrillation on chronic anticoagulation with pacemaker/defibrillator in place Acute blood loss anemia Chronic CHFunknown EF CKD 4 Diabetes mellitus type 2insulin-dependent Neuropathy Hypertension Tobacco use disorder Plan: Left intertrochanteric femur fracture S/P repair with CR IM 04/09 PT per Ortho-working with PT, may need SNF Atrial fibrillation on chronic anticoagulation with pacemaker/defibrillator in place Chronic CHFunknown EF Cardiology following Denies chest pain, dyspnea Acute blood loss anemia Repeat CBC in the morning CKD 4 Believe this is similar to his baseline No previous labs available for review at this time 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
[2025-04-10] MEDS: INSULIN REGULAR (HUMAN) 100 UNIT/ML SQ SCH (16:32)
--- NOTE | 2025-04-10 20:16 | P.PN ---
Date of Service: 04/10/25 Vital Signs Temp Pulse Resp BP Pulse Ox 97.5 F 99 H 18 107/57 L 100 04/10/25 16:00 04/10/25 16:00 04/10/25 16:00 04/10/25 16:00 04/10/25 16:00 Medications Hydrocodone Bitart/Acetaminophen (Hydrocodone/Apap 5/325 Mg Tab) 1 tab PO Q6H PRN PRN Reason: Pain scale 5-7 (Moderate) Last Admin: 04/08/25 12:55 Dose: 1 tab Apixaban (Apixaban 2.5 Mg Tablet) 2.5 mg PO BID [facility] Last Admin: 04/10/25 09:21 Dose: 2.5 mg Atorvastatin Calcium (Atorvastatin 40 Mg Tab) 40 mg PO BEDTIME [facility] Last Admin: 04/09/25 22:07 Dose: 40 mg Bumetanide (Bumetanide 1 Mg Tablet) 1 mg PO DAILY [facility] Last Admin: 04/10/25 09:21 Dose: 1 mg Carvedilol (Carvedilol 25 Mg Tab) 25 mg PO BID [facility] Last Admin: 04/10/25 09:00 Dose: Not Given Cholecalciferol (Vitamin D 5,000 Unit Cap) 5,000 unit PO DAILY [facility] Last Admin: 04/10/25 09:21 Dose: 5,000 unit Docusate Sodium (Docusate Na 100 Mg Cap) 100 mg PO BID [facility] Last Admin: 04/10/25 09:21 Dose: 100 mg Gabapentin (Gabapentin 300 Mg Cap) 300 mg PO BID [facility] Last Admin: 04/10/25 09:21 Dose: 300 mg Insulin Human Regular (Insulin Regular (Human) 100 Unit/Ml) 0 unit SQ ACHS [facility]; Protocol Last Admin: 04/10/25 16:32 Dose: 7 unit Isosorbide Dinitrate (Isosorbide Dinit 5 Mg Tab) 10 mg PO TID [facility] Last Admin: 04/10/25 13:04 Dose: Not Given Morphine Sulfate (Morphine 4 Mg/Ml Syr) 2 mg IV Q4H PRN PRN Reason: Pain scale 8-10 (Severe) Last Admin: 04/09/25 04:25 Dose: 2 mg Assessment/ Plan: Nephrology No dyspnea No chest pain No acute events overnight Left hip pain Vitals, medications, blood work and imaging reviewed in the chart General: In no apparent distress, Oriented x3, Cooperative HEENT: Atraumatic Neck: Supple Respiratory: Normal air movement Cardiovascular: No edema, Regular rate/rhythm Gastrointestinal: Soft and benign, Non-distended Musculoskeletal: No clubbing, No contractures Integumentary: No rashes, No cyanosis Neurological: Normal speech Laboratory Data (last 24 hrs) 04/08/25 04/08/25 04/08/25 09:24 09:24 09:24 WBC 9.90 Hgb 10.3 L Hct 31.4 L Plt Count 121 L PT 17.5 H INR 1.57 Sodium 139 Potassium 4.4 BUN 84 H Creatinine 3.43 H Glucose 230 H Magnesium 2.6 H Total Bilirubin 0.7 AST 16 ALT 23 Alkaline Phosphatase 106 Imagings Data: EXAMINATION: ONE VIEW CHEST XR CLINICAL INDICATION: Male, 79 years old., Fall. Pre-op. Hypertension TECHNIQUE: Frontal chest projection is submitted. Examination is limited by patient positioning and technique. COMPARISON: No prior exam. FINDINGS: The lungs are well inflated and clear of focal consolidation. Central interstitial prominence. No pneumothorax or sizable effusion. Moderate cardiomegaly with left chest wall pacer/AICD in place. Mediastinal contours are otherwise unremarkable. IMPRESSION: Findings suggestive of central congestion or CHF. EXAMINATION: Hip Left 2 View CLINICAL INDICATION: Male, 79 years old. [facility] Bed Name: 13 TECHNIQUE: 2 view radiograph of the left hip were obtained. COMPARISON: No prior exam. FINDINGS: Left intertrochanteric comminuted fracture with displaced fragment at the base of the lesser trochanter. Mild hip joint degenerative changes. No Other focal bone lesion. Vascular calcifications, stents, and surgical clips in place. IMPRESSION: Left intertrochanteric comminuted fracture with displaced fragment at the base of the lesser trochanter. LEFT VENTRICULAR WALL MOTION: MODERATE GLOBAL HYPOKINESIS DOPPLER/COLOR FLOW: DIASTOLIC DYFUNCTION COMMENTS: 1. MODERATE REDUCED LEFT VENTRICULAR SYSTOLIC FUNCTION, EJECTION FRACTION 40- 45%, MODERATE GLOBAL HYPOKINESIS 2. DIASTOLIC DYSFUNCTION 3. NORMAL FILLING PRESSURE 4. MILD MITRAL REGURGITATION Conclusions/Impression: 79 yo WM presents to the ER with a Left Femur Fracture following a fall CKD IV with Proteinuria -No NSAIDs HTN with CKD/ CHF Paroxysmal Afib -Continue Coreg Systolic Diastolic CHF, chronic LVEF 30% -Echocardiogram reviewed -Low sodium diet DM II with CKD & PolyNeuropathy -RISS -Continue Gabapentin BID Anemia in chronic illness/ CKD Thrombocytopenia -Monitor H&H -Retacrit prn CKD MBD Secondary HyperParathyroidism -Continue Cholecalciferol Hospitalist note reviewed
[2025-04-11 04:54] LABS: Hematocrit 21.8 % (39.6-49.0); Hemoglobin 7.4 g/dL (13.6-17.9); MCH 29.8 pg (27.0-35.0); MCHC 34.0 g/dL (32.0-36.0); MCV 87.6 fL (80-100); MPV 11.7 fL (7.6-11.3); RBC Red Blood Cell Count 2.48 M/uL (4.33-5.43); White Blood Count 9.20 thou/uL (4.3-10.9)
[2025-04-11 05:10] LABS: Anion Gap 13.4 mEq/L (5.0-15.0); BUN Blood Urea Nitrogen 107.0 mg/dL (7-18); Glucose Level 250.0 mg/dL (74-106); Potassium 4.4 mEq/L (3.5-5.1)
[2025-04-11] MEDS: NA CHLORIDE 0.9% 1,000 ML IV SCH (08:11)
[2025-04-11] MEDS: INSULIN GLARGINE 100 UNIT/ML SQ SCH ×2 (08:55→22:01)
--- NOTE | 2025-04-11 10:44 | P.PN ---
Date of Service: 04/11/25 Vital Signs Temp Pulse Resp BP Pulse Ox 97.7 F 81 17 102/53 L 100 04/11/25 08:00 04/11/25 08:00 04/11/25 08:00 04/11/25 08:00 04/11/25 08:00 Medications Hydrocodone Bitart/Acetaminophen (Hydrocodone/Apap 5/325 Mg Tab) 1 tab PO Q6H PRN PRN Reason: Pain scale 5-7 (Moderate) Last Admin: 04/11/25 08:11 Dose: 1 tab Apixaban (Apixaban 2.5 Mg Tablet) 2.5 mg PO BID [facility] Last Admin: 04/11/25 08:12 Dose: 2.5 mg Atorvastatin Calcium (Atorvastatin 40 Mg Tab) 40 mg PO BEDTIME [facility] Last Admin: 04/10/25 21:02 Dose: 40 mg Bumetanide (Bumetanide 1 Mg Tablet) 1 mg PO DAILY [facility] Last Admin: 04/10/25 09:21 Dose: 1 mg Cholecalciferol (Vitamin D 5,000 Unit Cap) 5,000 unit PO DAILY [facility] Last Admin: 04/11/25 08:12 Dose: 5,000 unit Docusate Sodium (Docusate Na 100 Mg Cap) 100 mg PO BID [facility] Last Admin: 04/11/25 08:11 Dose: 100 mg Gabapentin (Gabapentin 300 Mg Cap) 300 mg PO BID [facility] Last Admin: 04/11/25 08:11 Dose: 300 mg Sodium Chloride (Ns 1000 Ml Ivbag) 1,000 mls @ 75 mls/hr IV .[id number] [facility] Last Admin: 04/11/25 08:11 Dose: 1,000 mls Sodium Chloride (Sodium Chloride) 250 mls @ 0 mls/hr IV .Q0M [facility] Insulin Glargine (Insulin Glargine 100 Unit/Ml) 10 unit SQ DAILY [facility] Last Admin: 04/11/25 08:55 Dose: 10 unit Insulin Human Regular (Insulin Regular (Human) 100 Unit/Ml) 0 unit SQ ACHS [facility]; Protocol Last Admin: 04/11/25 08:11 Dose: 5 unit Isosorbide Dinitrate (Isosorbide Dinit 5 Mg Tab) 10 mg PO TID [facility] Metoprolol Tartrate (Metoprolol Tar 25 Mg Tab) 25 mg PO BID 6AM 6PM [facility] Morphine Sulfate (Morphine 4 Mg/Ml Syr) 2 mg IV Q4H PRN PRN Reason: Pain scale 8-10 (Severe) Last Admin: 04/09/25 04:25 Dose: 2 mg Assessment/ Plan: Nephrology No dyspnea No chest pain No acute events overnight Left hip pain Vitals, medications, blood work and imaging reviewed in the chart General: In no apparent distress, Oriented x3, Cooperative HEENT: Atraumatic Neck: Supple Respiratory: Normal air movement Cardiovascular: No edema, Regular rate/rhythm Gastrointestinal: Soft and benign, Non-distended Musculoskeletal: No clubbing, No contractures Integumentary: No rashes, No cyanosis Neurological: Normal speech Laboratory Data (last 24 hrs) 04/08/25 04/08/25 04/08/25 09:24 09:24 09:24 WBC 9.90 Hgb 10.3 L Hct 31.4 L Plt Count 121 L PT 17.5 H INR 1.57 Sodium 139 Potassium 4.4 BUN 84 H Creatinine 3.43 H Glucose 230 H Magnesium 2.6 H Total Bilirubin 0.7 AST 16 ALT 23 Alkaline Phosphatase 106 Imagings Data: EXAMINATION: ONE VIEW CHEST XR CLINICAL INDICATION: Male, 79 years old., Fall. Pre-op. Hypertension TECHNIQUE: Frontal chest projection is submitted. Examination is limited by patient positioning and technique. COMPARISON: No prior exam. FINDINGS: The lungs are well inflated and clear of focal consolidation. Central interstitial prominence. No pneumothorax or sizable effusion. Moderate cardiomeg chery with left chest wall pacer/AICD in place. Mediastinal contours are otherwise unremarkable. IMPRESSION: Findings suggestive of central congestion or CHF. EXAMINATION: Hip Left 2 View CLINICAL INDICATION: Male, 79 years old. [facility] DEFORMITY Bed Name: 13 TECHNIQUE: 2 view radiograph of the left hip were obtained. COMPARISON: No prior exam. FINDINGS: Left intertrochanteric comminuted fracture with displaced fragment at the base of the lesser trochanter. Mild hip joint degenerative changes. No Other focal bone lesion. Vascular calcifications, stents, and surgical clips in place. IMPRESSION: Left intertrochanteric comminuted fracture with displaced fragment at the base of the lesser trochanter. LEFT VENTRICULAR WALL MOTION: MODERATE GLOBAL HYPOKINESIS DOPPLER/COLOR FLOW: DIASTOLIC DYFUNCTION COMMENTS: 1. MODERATE REDUCED LEFT VENTRICULAR SYSTOLIC FUNCTION, EJECTION FRACTION 40- 45%, MODERATE GLOBAL HYPOKINESIS 2. DIASTOLIC DYSFUNCTION 3. NORMAL FILLING PRESSURE 4. MILD MITRAL REGURGITATION Conclusions/Impression: 79 yo WM presents to the ER with a Left Femur Fracture following a fall Stage III KADEEM in the setting of hypotension CKD IV with Proteinuria -No NSAIDs -Agree with gentle IVF HTN with CKD/ CHF complicated by hypotension Paroxysmal Afib -Change Coreg to Metoprolol with holding parameters Systolic Diastolic CHF, chronic LVEF 40% -Daily weight -Low sodium diet DM II with CKD & PolyNeuropathy -RISS -Continue Gabapentin BID Anemia in chronic illness/ CKD Thrombocytopenia -Monitor H&H -Retacrit X1 -PRBC prn CKD MBD Secondary HyperParathyroidism -Continue Cholecalciferol Hospitalist note reviewed Case reviewed with the hospitalist team
[2025-04-11] MEDS ORDERED: NA CHLORIDE 0.9% 250 ML IV SCH (11:00)
[2025-04-11] MEDS: EPOETIN ALFA-EPBX 10,000 UNIT/ML VIAL SQ ONE (11:55)
[2025-04-11 13:28] LABS: UR CREAT 193.0 mg/dL (20-370); UR PROTEIN 72.4 mg/dL (<11.9)
--- NOTE | 2025-04-11 15:26 | P.PN ---
Date of Service: 04/11/25 Subjective: Renal function worsening overnight Decreased urine output Blood pressure low this afternoon, will move to ICU for hypotension/close monitoring ROS: 10 point ROS as noted above, otherwise negative Physical exam GEN: Alert, oriented, NAD HEENT: Normal conjunctiva, sclera anicteric CV: Regular rate and rhythm, no edema Pulm: Nonlabored respirations on room air ABD: Soft, nontender, nondistended, Branham catheter in place MSK: Dressing in place to left hip Integumentary: No rashes Neuro: Normal speech, normal affect Vitals reviewed Assessment: Left intertrochanteric femur fracture Atrial fibrillation on chronic anticoagulation with pacemaker/defibrillator in place Acute blood loss anemia Chronic CHFunknown EF CKD 4 Diabetes mellitus type 2insulin-dependent Neuropathy Hypertension Tobacco use disorder Plan: Left intertrochanteric femur fracture S/P repair with CR IM 04/09 PT per Ortho-working with PT Will need SNF at discharge Atrial fibrillation on chronic anticoagulation with pacemaker/defibrillator in place Chronic CHFunknown EF Cardiology following Eliquis continued 04/09 after surgery-okayed with Ortho Denies chest pain, dyspnea Acute blood loss anemia with hypotension Decreased urine output, low blood pressures this afternoon Transfusing 1 unit packed red blood cells now with additional IV fluid bolus Moved to ICU for close monitoring CKD 4 Worsening renal function overnight Does not seem overloaded, likely on the dry side IV fluids started, will continue overnight Giving 1 unit of packed red blood cells as well Nephrology following Diabetes mellitus type 2insulin-dependent ACHS Accu-Chek, sliding scale insulin Sliding scale increased to moderate yesterday, adding long-acting insulin today Neuropathy Hypertension PAD Continue home medications when verified Tobacco use disorder Counseled on need for cessation DVT PPX: Eliquis continued Code status: Full Discharge Plan: SNF Plan to discharge in: Greater than 2 days Time Spent Managing Pts Care (In Minutes): 35
[2025-04-11] MEDS: METOPROLOL TAR 25 MG TAB PO SCH (18:00)
[2025-04-11 20:00] LABS: Hematocrit 23.8 % (39.6-49.0); Hemoglobin 7.8 g/dL (13.6-17.9)
[2025-04-11] MEDS: NA CHLORIDE 0.9% 250 ML ONE (21:17)
[2025-04-11] MEDS: INSULIN REGULAR (HUMAN) 100 UNIT/ML ONE (23:32)
[2025-04-12 04:42] LABS: Sqamous Epithelial <5 /HPF (None Seen); Urine Granular Casts 0-5 /LPF (None Seen); Urine Micro Reflex YN NO BILL MICROSCOPIC
[2025-04-12 05:28] LABS: Hematocrit 23.7 % (39.6-49.0); Hemoglobin 8.1 g/dL (13.6-17.9); MCH 30.2 pg (27.0-35.0); MCHC 34.0 g/dL (32.0-36.0); MCV 88.8 fL (80-100); MPV 12.1 fL (7.6-11.3); RBC Red Blood Cell Count 2.67 M/uL (4.33-5.43); White Blood Count 8.70 thou/uL (4.3-10.9)
[2025-04-12 06:02] LABS: ALT/SGPT 1176.0 U/L (16-61); AST/SGOT 3034.0 U/L (15-37); Albumin 2.4 g/dL (3.4-5.0); Albumin/Globulin Ratio 0.7 (1.1-1.8); Alkaline Phosphatase 176.0 U/L (45-117); Anion Gap 14.8 mEq/L (5.0-15.0); BUN Blood Urea Nitrogen 122.0 mg/dL (7-18); Bilirubin Indirect, Calculated 0.4 mg/dL (0.2-0.8); Globulin 3.3 g/dL (2.3-3.5); Glucose Level 226.0 mg/dL (74-106); Potassium 4.8 mEq/L (3.5-5.1); Uric Acid 13.2 mg/dL (3.5-7.2)
[2025-04-12 06:04] LABS: MA/CREAT RATIO 123.0 (< 30.0); UR CREAT 135.0 mg/dL (20-370); UR MICROALBUMIN 16.6 mg/dL (< 1.9)
[2025-04-12 09:45] LABS: UR CL RANDOM < 12 mmol/L (25-40); UR POTASSIUM 63.0 mmol/L (20-40); UR SODIUM < 15 mmol/L (27-287)
[2025-04-12] MEDS: CEFTRIAXONE 1,000 MG in NA CHLORIDE 0.9% 50 ML IVPB SCH (10:42)
--- NOTE | 2025-04-12 10:50 | P.PN ---
Nephrology note (S) Pt seen in the ICU, afebrile, hemodynamically stable, awake, alert, no acute CP or dyspnea voiced, pain controlled, no abd pain or N/V reported. Worsened renal function tests discussed, pt has been aware of SUPPLY MANAGER/dialysis risks/needs for some time, agreeable to placement of a TDC and initiation of HD on this admission Vitals, medications, blood work and imaging reviewed in the chart General: In no apparent distress, NAD, elderly, pale HEENT: Atraumatic, sclera anicteric, not on O2 Neck: Supple Respiratory: Normal air movement, non tachypnec, b/l air entry Cardiovascular: No edema, Regular rate/rhythm mostly Gastrointestinal: Soft and benign, Non-distended Musculoskeletal: No contractures, shins non tender Integumentary: No rashes Neurological: Normal speech, awake, alert, conversive, no tremors noted Laboratory Data (last 24 hrs) Reviewed in the EMR Imagings Data: LEFT VENTRICULAR WALL MOTION: MODERATE GLOBAL HYPOKINESIS DOPPLER/COLOR FLOW: DIASTOLIC DYFUNCTION COMMENTS: 1. MODERATE REDUCED LEFT VENTRICULAR SYSTOLIC FUNCTION, EJECTION FRACTION 40- 45%, MODERATE GLOBAL HYPOKINESIS 2. DIASTOLIC DYSFUNCTION 3. NORMAL FILLING PRESSURE 4. MILD MITRAL REGURGITATION Conclusions/Impression: Stage III ARF per ESTEFANIA definition with Cr level > 4 mg/dl on underlying long standing CKD IV, followed by Dr. Francis, multifactorial ARF in the setting of hypotension, anemia, low CO state, other -BUN and Cr levels upward rising, will proceed with plan to initiate SUPPLY MANAGER, will request TDC insertion by surgeon but will have to hold Eliquis for 48h. -Severe azotemia, without uremia, trend, will clear with HD -Dose meds for reduced CrCl -D/c Morphine for pain control as metabolites accumulate, can use other narcotics such as Fentanyl if needed for severe pain Chronic systolic + diastolic dysfunction. Hypotension in the setting of surgery, anesthesia, blood loss, other Paroxysmal Afib -Cont gentle hydration, management otherwise by IM Acute liver injury -Sig elevated LFTs, unclear if related to hypotensive event or other. W/u per IM. Monitor plt count closely Abnormal findings in urine, pyuria, bacteriuria -Cover empirically with Rocephin, f/u final UCx
[2025-04-12] MEDS: NA CHLORIDE 0.9% 1,000 ML IV SCH (11:30)
--- NOTE | 2025-04-12 12:18 | CON ---
Date of Consultation: 04/12/2025 Reason: The patient needs a tunneled dialysis catheter. History Of Present Illness: The patient is an 79-year-old gentleman with multiple medical problems, who came with left hip pain on the 08 of April and he had a left intertrochanteric femur fracture. He went to surgery and had that fixed and now has developed acute renal failure on chronic kidney dis ease and requires a tunneled dialysis catheter. He is awake and alert. No sore throat, runny nose, cough, headaches, or dizziness. No chest pain. No fever or chills. Review of Systems: Otherwise unremarkable. Past Medical History: Significant for CHF, atrial fibrillation, diabetes, chronic kidney disease sta ge 4, peripheral arterial disease. Past Surgical History: Pacemaker defibrillator, femoral-popliteal bypass, recent left hip surgery. Allergies: NO ALLERGIES. Social History: The patient does smoke and does not drink. Family History: Noncontributory. Physical Examination: Vital Signs: Stable. He is afebrile. General: He is awake and alert. Head and Neck: No masses. No JVD. Throat clear. Neck is supple. Chest: Clear. Heart: S1, S2. Abdomen: Soft. Extremities: Neurovascularly intact. Neuro: Nonfocal. Diagnostic Data: White count is 8.7, H and H is 8.1 and 23.7, platelets are 80. His INR is 1.57. T he patient is on Eliquis, which was held today and his chemistry is significant for BUN of 122, creat inine of 4.9. Remainder of the lab reviewed. His AST and ALT are elevated. The Medical Team is add ressing that. Assessment: Acute renal failure on chronic kidney disease, requiring dialysis. Recommendations: The patient has been on Eliquis. We will wait until tomorrow and proceed with plac ement of a tunneled dialysis catheter. The patient understands risks, benefits, alternatives, and ag juani to procedure. /MODL Voice ID: [id number] Report ID: [id number]
--- NOTE | 2025-04-12 14:15 | P.PN ---
Date of Service: 04/12/25 Subjective: Renal function worsening overnight Decreased urine output BP soft but maps >65 ROS: 10 point ROS as noted above, otherwise negative Physical exam GEN: Alert, oriented, NAD HEENT: Normal conjunctiva, sclera anicteric CV: Regular rate and rhythm, no edema Pulm: Nonlabored respirations on room air ABD: Soft, nontender, nondistended, Branham catheter in place MSK: Dressing in place to left hip Integumentary: No rashes Neuro: Normal speech, normal affect Vitals reviewed Assessment: Left intertrochanteric femur fracture Atrial fibrillation on chronic anticoagulation with pacemaker/defibrillator in place Acute blood loss anemia Elevated aminotransferase levels Chronic CHFunknown EF CKD 4 Diabetes mellitus type 2insulin-dependent Neuropathy Hypertension Tobacco use disorder Plan: Left intertrochanteric femur fracture S/P repair with CR IM 04/09 PT per Ortho-working with PT Will need SNF at discharge Atrial fibrillation on chronic anticoagulation with pacemaker/defibrillator in place Chronic CHFunknown EF Cardiology following Eliqulurdes continued 04/09 after surgery-okayed with Ortho now holding due to need for TDC placement Denies chest pain, dyspnea Acute blood loss anemia with hypotension Transfusing 1 unit packed red blood cells 04/11 Monitor H/H daily Elevated aminotransferase levels Suspect this is secondary to low blood pressure/shock liver Continue supportive care, recheck LFTs Liver ultrasound ordered CKD 4 Worsening renal function overnight Does not seem overloaded, likely on the dry side Continue IV fluids Given uremia, worsening CKD will need initiation of renal replacement therapy Plan for tunneled dialysis catheter placement during this hospitalization Nephrology following, general surgery consulted Issa on hold Diabetes mellitus type 2insulin-dependent ACHS Accu-Chek, sliding scale insulin Sliding scale increased to moderate yesterday, long-acting insulin added Neuropathy Hypertension PAD Home meds continued with hold parameters Tobacco use disorder Counseled on need for cessation DVT PPX: Eliquis continued Code status: Full Discharge Plan: SNF Plan to discharge in: Greater than 2 days Time Spent Managing Pts Care (In Minutes): 35
[2025-04-12 17:03] LABS: Hematocrit 24.0 % (39.6-49.0); Hemoglobin 7.9 g/dL (13.6-17.9); MCH 29.5 pg (27.0-35.0); MCHC 33.2 g/dL (32.0-36.0); MCV 89.1 fL (80-100); MPV 12.5 fL (7.6-11.3); RBC Red Blood Cell Count 2.69 M/uL (4.33-5.43); White Blood Count 9.30 thou/uL (4.3-10.9)
[2025-04-12 17:38] LABS: White Blood Cell Scan OK (OK)
[2025-04-12 17:39] LABS: Blood Morphology Comment NOTED (NOT SEEN); Ovalocytes SLIGHT
--- NOTE | 2025-04-12 17:40 | RAD REPORT ---
EXAMINATION: Ultrasound of the liver CLINICAL HISTORY: elevated LFTs COMPARISON: None FINDINGS: The liver has a normal echotexture. Hepatopedal flow is present. A lesion not visualized. Liver appea rs borderline enlarged. Prominence of the IVC and hepatic veins. Small right pleural effusion Spleen 10 cm with a normal echotexture. IMPRESSION: Mild prominence of the hepatic veins and IVC may indicate right heart failure Small right pleural effusion
[2025-04-12 17:50] LABS: ALT/SGPT 1087.0 U/L (16-61); AST/SGOT 1964.0 U/L (15-37); Albumin 2.4 g/dL (3.4-5.0); Albumin/Globulin Ratio 0.8 (1.1-1.8); Alkaline Phosphatase 182.0 U/L (45-117); Anion Gap 17.0 mEq/L (5.0-15.0); BUN Blood Urea Nitrogen 131.0 mg/dL (7-18); Globulin 3.1 g/dL (2.3-3.5); Glucose Level 234.0 mg/dL (74-106); Potassium 5.0 mEq/L (3.5-5.1)
[2025-04-12 19:21] LABS: Hepatitis B Surface Ab - Quant < 3.10 mIU/mL (<8.0); Hepatitis B surface AG Interp. Nonreactive (Nonreactive)
[2025-04-12 19:22] LABS: HBsAG Nonreactive Report Report
[2025-04-13 07:03] LABS: Hematocrit 23.5 % (39.6-49.0); Hemoglobin 7.7 g/dL (13.6-17.9); MCH 29.2 pg (27.0-35.0); MCHC 32.7 g/dL (32.0-36.0); MCV 89.1 fL (80-100); MPV 12.4 fL (7.6-11.3); RBC Red Blood Cell Count 2.64 M/uL (4.33-5.43); White Blood Count 8.70 thou/uL (4.3-10.9)
[2025-04-13 07:17] LABS: PT Prothrombin Time 22.7 SECONDS (10-13.0); Protime INR 2.05
[2025-04-13 07:36] LABS: ALT/SGPT 1042.0 U/L (16-61); AST/SGOT 1976.0 U/L (15-37); Albumin 2.5 g/dL (3.4-5.0); Albumin/Globulin Ratio 0.8 (1.1-1.8); Alkaline Phosphatase 180.0 U/L (45-117); Anion Gap 14.3 mEq/L (5.0-15.0); BUN Blood Urea Nitrogen 131.0 mg/dL (7-18); Globulin 3.2 g/dL (2.3-3.5); Glucose Level 86.0 mg/dL (74-106); Potassium 4.3 mEq/L (3.5-5.1)
[2025-04-13] MEDS: NS 0.9% VIAL 10 ML ONE (07:50)
[2025-04-13] MEDS: LIDOCAINE 1% 20 ML MDV ONE (07:50)
[2025-04-13] MEDS: NA CHLORIDE 0.9% 100 ML ONE (07:51)
[2025-04-13] MEDS ORDERED: BUPIVACAINE 0.5% PF 10 ML VIAL ONE (07:59)
[2025-04-13] MEDS: NA CHLORIDE 0.9% 1,000 ML IV SCH (08:34)
[2025-04-13] MEDS: GABAPENTIN 300 MG CAP PO SCH (08:41)
[2025-04-13] MEDS: BUPIVACAINE 0.5% PF 10 ML VIAL ONE (09:27)
[2025-04-13] MEDS: HEPARIN 5000 UNIT/ML 1 ML VIAL ONE (10:15)
[2025-04-13] MEDS ORDERED: Mastisol Adhesive Liq ONE (10:17)
--- NOTE | 2025-04-13 10:36 | P.OP ---
Date of Service: 04/13/25 Preop diagnosis: End-stage renal disease Postop diagnosis: Same Procedure performed: Placement of right IJ tunneled dialysis catheter with utilization of Doppler and fluoroscopy Surgeon: Miguelito Walker MD Falsework Builder: None Estimated blood loss: Minimal Specimen: None Findings: Normal anatomy Anesthesia: General Complications: None Drains: None Fluids and blood products: Nonapplicable Disposition: Recovery room Operative note: Patient brought to the OR and placed in supine position. General anesthesia began. Patient prepped and draped in the usual sterile fashion. Lidocaine 1% infiltrated locally. Doppler device used to identify the right internal jugular vein. 18-gauge needle used to access the right internal jugular vein and guidewire passed. Position confirmed with fluoroscopy. A counterincision made on the right anterior chest. A tunneling device used to tunnel the catheter between the 2 wounds. Salinger technique used. Tip of the catheter placed in the SVC under fluoroscopy. Catheter flushed with heparin and packed with heparin with good blood flow. 3-0 chromic used to reapproximate subcutaneous tissue and close skin. 3-0 nylon used to secure the catheter to the chest wall. Sterile dressing applied. Patient awakened and taken to recovery room in good general condition. Chest x-ray has been ordered. CC:
--- NOTE | 2025-04-13 11:09 | RAD REPORT ---
EXAMINATION: ONE VIEW CHEST XR CLINICAL INDICATION: S/P tunneled dialysis catheter, rule out TB TECHNIQUE: Frontal chest projection is submitted. Examination is limited by patient positioning and t echnique. COMPARISON: 04/08/2025 FINDINGS: [id number] bilateral pulmonary opacities likely pulmonary edema. Right-sided venous catheter card s been placed its tip in the SVC. No pneumothorax. No finding to raise suspicion for tuberculosis. The heart is moderately enlarged with multilead pacer/defibrillator.
[2025-04-13 11:13] VITALS: O2SAT 98
--- NOTE | 2025-04-13 12:14 | RAD REPORT ---
EXAMINATION: US BILATERAL LOWER EXTREMITY VENOUS DOPPLER CLINICAL INDICATION: R/O DVT TECHNIQUE: Complete bilateral duplex sonography of the BILATERAL lower extremity veins was performed. The examination included compression for vein patency, color Doppler imaging and flow augmentation in response to distal compression of the distal external iliac, common femoral, femoral, popliteal, t ibial, and great and small saphenous veins. COMPARISON: No prior exam. FINDINGS: Duplex sonography testing of the veins of the BILATERAL lower extremity was performed. Color flow jaycob ging shows all veins to be compressible with [id number] color filling. Pulsatile and phasic flow is present within all lower extremity deep and superficial veins examined. IMPRESSION: There is no deep vein or superficial vein thrombosis.
--- NOTE | 2025-04-13 14:55 | RAD REPORT ---
EXAM: Fluoroscopy use, Fluoroscopy <1 Hour HISTORY: DIALYSIS CATHETER PLACEMENT COMPARISON: None FINDINGS: Multiple images were sent to PACS, during a fluoroscopically guided procedure. No radiologi st was involved in protocoling or performance of the study, and no radiologist was present for the duration of the procedure. No interpretation of the saved images will be provided. Total fluoroscopy time: 0.1 minutes. IMPRESSION: Documentation of fluoroscopy use as above.
--- NOTE | 2025-04-13 15:43 | P.PN ---
Date of Service: 04/13/25 Subjective: Moved from ICU yesterday evening Reports pain from neuropathy in his legs is bothering him but this is chronic and unchanged Feels the pain from left hip fracture is improving Had his TDC placement today No other acute events overnight ROS: 10 point ROS as noted above, otherwise negative Physical exam GEN: Alert, oriented, NAD HEENT: Normal conjunctiva, sclera anicteric CV: Regular rate and rhythm, no edema Pulm: Nonlabored respirations on room air ABD: Soft, nontender, nondistended, Branham catheter in place MSK: Dressing in place to left hip Integumentary: No rashes, TDC placed to right chest wall Neuro: Normal speech, normal affect Vitals reviewed Assessment: Left intertrochanteric femur fracture Atrial fibrillation on chronic anticoagulation with pacemaker/defibrillator in place Acute blood loss anemia Elevated aminotransferase levels Chronic CHFunknown EF CKD 4 Diabetes mellitus type 2insulin-dependent Neuropathy Hypertension Tobacco use disorder Plan: Left intertrochanteric femur fracture S/P repair with CR IM 04/09 PT per Ortho-working with PT Will need SNF at discharge Atrial fibrillation on chronic anticoagulation with pacemaker/defibrillator in place Chronic CHFunknown EF Cardiology following Eliquis on hold until a.m. of 04/14 after TDC placement Acute blood loss anemia with hypotension Transfusing 1 unit packed red blood cells 04/11 Monitor H/H daily Elevated aminotransferase levels Suspect this is secondary to low blood pressure/shock liver Continue supportive care, recheck LFTs Liver ultrasound- Mild prominence of the hepatic veins and IVC may indicate right heart failure Small right pleural effusion Monitor LFTs daily CKD 4 Worsening renal function Given uremia, worsening CKD will need initiation of renal replacement therapy TDC placed 04/13 Initiating inpatient renal replacement therapy/HD Eliquis on hold until a.m. of 04/14 then resume Diabetes mellitus type 2insulin-dependent ACHS Accu-Chek, sliding scale insulin Long-acting insulin added Neuropathy Hypertension PAD Home meds continued with hold parameters Tobacco use disorder Counseled on need for cessation DVT PPX: Eliquis continued Code status: Full Discharge Plan: SNF Plan to discharge in: Greater than 2 days Time Spent Managing Pts Care (In Minutes): 35
[2025-04-13] MEDS: ISOSORBIDE DINIT 5 MG TAB PO SCH (16:01)
--- NOTE | 2025-04-13 16:48 | P.PN ---
Nephrology note (S) Pt has been moved out of the ICU, s/p Rt IJ TDC placement, tolerated procedure well, no bleeding from site note, pt denies any acute dyspnea, no sig pain at hip or surgical site, no N/V/D, shi in place, making some urine Vitals, medications, blood work and imaging reviewed in the chart General: In no apparent distress, NAD, elderly, pale HEENT: Atraumatic, sclera anicteric, not on O2 Neck: Supple Respiratory: Normal air movement, non tachypnec, b/l air entry Cardiovascular: No edema, Regular rate/rhythm mostly Gastrointestinal: Soft and benign, Non-distended Musculoskeletal: No contractures, shins non tender Integumentary: No rashes Neurological: Normal speech, awake, alert, conversive, no tremors noted Laboratory Data (last 24 hrs) Reviewed in the EMR Imagings Data: LEFT VENTRICULAR WALL MOTION: MODERATE GLOBAL HYPOKINESIS DOPPLER/COLOR FLOW: DIASTOLIC DYFUNCTION COMMENTS: 1. MODERATE REDUCED LEFT VENTRICULAR SYSTOLIC FUNCTION, EJECTION FRACTION 40- 45%, MODERATE GLOBAL HYPOKINESIS 2. DIASTOLIC DYSFUNCTION 3. NORMAL FILLING PRESSURE 4. MILD MITRAL REGURGITATION Conclusions/Impression: Stage III ARF per ESTEFANIA definition with Cr level > 4 mg/dl on underlying long standing CKD IV, followed by Dr. Francis, multifactorial ARF in the setting of hypotension, anemia, low CO state, other. Non anuric -BUN and Cr levels upward rising, will proceed with plan to initiate LOSS PREVENTION GUARD, did request TDC insertion by surgeon, Issa schaeffer, will resume since no bleeding from TDC site -HD tmrw AM, RN not available today -Severe azotemia, without uremia, trend, will clear with HD -Dose meds for reduced CrCl -D/c Morphine for pain control as metabolites accumulate, can use other narcotics such as Fentanyl if needed for severe pain Chronic systolic + diastolic dysfunction. Hypotension in the setting of surgery, anesthesia, blood loss, other Paroxysmal Afib -S/p intravascular volume, BP no longer low, stop IVF as CXR showing some vascular congestion, resume maintenance diuretics as pt non anuric Acute liver injury -Sig elevated LFTs, unclear if related to hypotensive event or other. W/u per IM. Monitor plt count closely Abnormal findings in urine, pyuria, bacteriuria -Citrobacter on culture, cont Rocephin
[2025-04-13] MEDS: BUMETANIDE 1 MG/4 ML VIAL IV SCH (18:09)
[2025-04-13] MEDS: APIXABAN 2.5 MG TABLET PO SCH (21:31)
[2025-04-14] MEDS: MORPHINE 2 MG/ML SYR IV ONE (05:10)
[2025-04-14 06:20] LABS: Hematocrit 22.0 % (39.6-49.0); Hemoglobin 7.3 g/dL (13.6-17.9); MCH 29.5 pg (27.0-35.0); MCHC 33.4 g/dL (32.0-36.0); MCV 88.5 fL (80-100); MPV 12.2 fL (7.6-11.3); RBC Red Blood Cell Count 2.48 M/uL (4.33-5.43); White Blood Count 7.00 thou/uL (4.3-10.9)
[2025-04-14 07:08] LABS: PT Prothrombin Time 22.5 SECONDS (10-13.0); Protime INR 2.03
[2025-04-14 07:21] LABS: ALT/SGPT 801.0 U/L (16-61); AST/SGOT 1053.0 U/L (15-37); Albumin 2.3 g/dL (3.4-5.0); Albumin/Globulin Ratio 0.7 (1.1-1.8); Alkaline Phosphatase 190.0 U/L (45-117); Anion Gap 16.5 mEq/L (5.0-15.0); BUN Blood Urea Nitrogen 149.0 mg/dL (7-18); Globulin 3.1 g/dL (2.3-3.5); Glucose Level 207.0 mg/dL (74-106); Potassium 4.5 mEq/L (3.5-5.1)
--- NOTE | 2025-04-14 08:07 | P.PN ---
Date of Service: 04/14/25 Subjective: Blood pressures have improved No acute events overnight Going to have his first session of inpatient HD today ROS: 10 point ROS as noted above, otherwise negative Physical exam GEN: Alert, oriented, NAD HEENT: Normal conjunctiva, sclera anicteric CV: Regular rate and rhythm, no edema Pulm: Nonlabored respirations on room air ABD: Soft, nontender, nondistended, Branham catheter in place MSK: Dressing in place to left hip Integumentary: No rashes, TDC placed to right chest wall Neuro: Normal speech, normal affect Vitals reviewed Assessment: Left intertrochanteric femur fracture Atrial fibrillation on chronic anticoagulation with pacemaker/defibrillator in place Acute blood loss anemia Elevated aminotransferase levels Chronic CHFunknown EF 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, uremia Diabetes mellitus type 2insulin-dependent Neuropathy Hypertension Tobacco use disorder Plan: Left intertrochanteric femur fracture S/P repair with CR IM 04/09 PT per Ortho-working with PT Will need SNF at discharge Atrial fibrillation on chronic anticoagulation with pacemaker/defibrillator in place Chronic CHFunknown EF Cardiology following Eliquis on hold now given thrombocytopenia with platelets of 54 this morning and hemoglobin of 7.3 Monitor CBC/platelet daily Acute blood loss anemia with hypotension Transfusing 1 unit packed red blood cells 04/11 Plan to transfuse an additional 1 unit of PRBC today 04/13 with HD Recheck H&H 2 hours after Elevated aminotransferase levels Suspect this is secondary to low blood pressure/shock liver Continue supportive care, recheck LFTs Liver ultrasound- Mild prominence of the hepatic veins and IVC may indicate right heart failure Small right pleural effusion Monitor LFTs daily-improving 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
[2025-04-14] MEDS: NA CHLORIDE 0.9% 250 ML IV ONE (08:39)
[2025-04-14] MEDS: MIDODRINE HCL 5 MG TABLET PO SCH (08:54)
[2025-04-14] MEDS: INSULIN GLARGINE 100 UNIT/ML SQ SCH (09:00)
[2025-04-14] MEDS: ALBUMIN HUMAN 25% 100 ML IV ONE (10:00)
--- NOTE | 2025-04-14 13:08 | P.PN ---
Nephrology note (S) Pt seen at the start of HD, pt does acknowledge some dyspnea but not on O2, BP remains soft at times, no CP or abd pain voiced, plan of care including dialysis discussed Vitals, medications, blood work and imaging reviewed in the chart General: In no apparent distress, NAD, elderly, pale HEENT: Atraumatic, sclera anicteric, not on O2 Neck: Supple Respiratory: Normal air movement, non tachypnec, b/l air entry Cardiovascular: No edema, Regular rate/rhythm mostly Gastrointestinal: Soft and benign, Non-distended Musculoskeletal: No contractures, shins non tender Integumentary: No rashes Neurological: Normal speech, awake, alert, conversive, no tremors noted Laboratory Data (last 24 hrs) Reviewed in the EMR Imagings Data: LEFT VENTRICULAR WALL MOTION: MODERATE GLOBAL HYPOKINESIS DOPPLER/COLOR FLOW: DIASTOLIC DYFUNCTION COMMENTS: 1. MODERATE REDUCED LEFT VENTRICULAR SYSTOLIC FUNCTION, EJECTION FRACTION 40- 45%, MODERATE GLOBAL HYPOKINESIS 2. DIASTOLIC DYSFUNCTION 3. NORMAL FILLING PRESSURE 4. MILD MITRAL REGURGITATION Conclusions/Impression: Stage III ARF per ESTEFANIA definition with Cr level > 4 mg/dl on underlying long standing CKD IV, followed by Dr. Francis, multifactorial ARF in the setting of hypotension, anemia, low CO state, other. Non anuric -BUN and Cr levels upward rising, will proceed with plan to initiate [employer], did request TDC insertion by surgeon, Issa schaeffer, did resume since no bleeding from TDC site but with low H/H, low plt count and other, will defer to IM team on whether to hold -Initial HD today, will plan for daily escalating sessions -Severe azotemia, without uremia, trend, will slowly clear with HD -Dose meds for reduced CrCl -D/c'ed Morphine for pain control as metabolites accumulate Chronic systolic + diastolic dysfunction. Hypotension in the setting of surgery, anesthesia, blood loss, other Paroxysmal Afib -S/p intravascular volume admin earlier, stopped IVF as CXR showing some vascular congestion, resumed maintenance diuretics as pt non anuric but BP remains soft, will employ IV Albumin with HD Acute liver injury -Sig elevated LFTs, unclear if related to hypotensive event or other. W/u per IM. Monitor plt count closely. ALT has peaked and slowly downward trending Abnormal findings in urine, pyuria, bacteriuria -Citrobacter on culture, cont Rocephin Anemia 2nd to surgical losses, CKD, other -Hb holding > 7 but remains low and with his cardiac conditions may seek to target > 8, primary team plans to transfuse 1 unit PRBC. Eliquis resumed earlier, on lower dose, but will have to be cautious with use.
[2025-04-14 14:46] LABS: Blood Morphology Comment NOT SEEN (NOT SEEN); White Blood Cell Scan OK (OK)
[2025-04-15] MEDS: LORazepam 2 MG/ML VIAL IV ONE (02:44)
[2025-04-15 05:04] LABS: Hematocrit 23.1 % (39.6-49.0); Hemoglobin 7.5 g/dL (13.6-17.9); MCH 29.3 pg (27.0-35.0); MCHC 32.5 g/dL (32.0-36.0); MCV 90.2 fL (80-100); MPV 12.2 fL (7.6-11.3); RBC Red Blood Cell Count 2.56 M/uL (4.33-5.43); White Blood Count 9.00 thou/uL (4.3-10.9)
[2025-04-15 05:13] LABS: PT Prothrombin Time 25.7 SECONDS (10-13.0); Protime INR 2.33
[2025-04-15] MEDS: HALOPERIDOL LACT 5 MG/ML INJ IM PRN (05:14)
--- NOTE | 2025-04-15 05:23 | RAD REPORT ---
CLINICAL HISTORY: Acute Confusion COMPARISON: None. TECHNIQUE: CT HEAD WITHOUT IV CONTRAST on 04/15/2025 12:00 AM CDT This exam was performed according to our departmental dose-optimization program, which includes autom ated exposure control, adjustment of the mA and/or kV according to patient size and/or use of iterative reconstruction technique. FINDINGS: There is no acute hemorrhage, mass effect or midline shift. Contreras-white differentiation is preserved. There is no hydrocephalus. There is no significant volume loss for age. The calvarium is intact. Orbits and globes are unremarkable. The paranasal sinuses are clear. Mastoid air cells are clear. IMPRESSION: No acute intracranial findings. Electronically signed by: Diego Bowers MD 04/15/2025 05:19 AM CDT RP Due to temporary technical issues with the [employer]ACS/[employer] reporting system, reports are being norma d by the in-house radiologist without review as a courtesy to ensure prompt reporting the interpreting radiologist is fully responsible for the content of the report. Transcribed Date/Time: 04/15/2025 5:22 AM
[2025-04-15 05:55] LABS: ALT/SGPT 1093.0 U/L (16-61); AST/SGOT 1560.0 U/L (15-37); Albumin 2.6 g/dL (3.4-5.0); Albumin/Globulin Ratio 0.9 (1.1-1.8); Alkaline Phosphatase 217.0 U/L (45-117); Anion Gap 18.7 mEq/L (5.0-15.0); BUN Blood Urea Nitrogen 128.0 mg/dL (7-18); Globulin 3.0 g/dL (2.3-3.5); Glucose Level 205.0 mg/dL (74-106); Potassium 4.7 mEq/L (3.5-5.1)
[2025-04-15] MEDS: ISOSORBIDE DINIT 5 MG TAB PO ONE (06:55)
--- NOTE | 2025-04-15 07:47 | RAD REPORT ---
EXAMINATION: ONE VIEW CHEST XR CLINICAL INDICATION: dyspnea, eval volume status TECHNIQUE: Frontal chest projection is submitted. Examination is limited by patient positioning and t echnique. COMPARISON: 04/13/2025 FINDINGS: Bilateral pulmonary opacities are again noted, greater on the right, likely pulmonary edema. Findings appear similar to comparison study. The heart is moderately enlarged in size. Multilead pacer/defibrillator device present. Right-sided venous catheter tip is in SVC.
--- NOTE | 2025-04-15 08:00 | P.PN ---
Date of Service: 04/15/25 Vital Signs Temp Pulse Resp BP Pulse Ox 98.2 F 85 13 102/55 L 100 04/15/25 00:00 04/15/25 06:00 04/15/25 00:00 04/15/25 06:00 04/15/25 00:00 Medications Hydrocodone Bitart/Acetaminophen (Hydrocodone/Apap 5/325 Mg Tab) 1 tab PO Q6H PRN PRN Reason: Pain scale 5-7 (Moderate) Last Admin: 04/14/25 01:07 Dose: 1 tab Apixaban (Apixaban 2.5 Mg Tablet) 2.5 mg PO BID [facility] Last Admin: 04/13/25 21:31 Dose: 2.5 mg Atorvastatin Calcium (Atorvastatin 40 Mg Tab) 40 mg PO BEDTIME [facility] Last Admin: 04/14/25 22:21 Dose: 40 mg Bumetanide (Bumetanide 1 Mg/4 Ml Vial) 1 mg IV BIDL [facility] Last Admin: 04/14/25 17:00 Dose: Not Given Cholecalciferol (Vitamin D 5,000 Unit Cap) 5,000 unit PO DAILY [facility] Last Admin: 04/14/25 08:54 Dose: 5,000 unit Docusate Sodium (Docusate Na 100 Mg Cap) 100 mg PO BID [facility] Last Admin: 04/14/25 22:21 Dose: 100 mg Gabapentin (Gabapentin 300 Mg Cap) 300 mg PO DAILY [facility] Last Admin: 04/14/25 08:54 Dose: 300 mg Haloperidol Lactate (Haloperidol Lact 5 Mg/Ml Inj) 5 mg IM 1X PRN PRN Reason: SEDATION Last Admin: 04/15/25 05:14 Dose: 5 mg Heparin Sodium (Porcine) (Heparin 1,000 Unit/Ml Vial) 6,000 unit IV EVERY HD PRN PRN Reason: FOR DIALYSIS CATHETER CARE Sodium Chloride (Sodium Chloride) 250 mls @ 0 mls/hr IV .Q0M [facility] Ceftriaxone Sodium 1,000 mg/ (Sodium Chloride) 50 mls @ 100 mls/hr IVPB DAILY [facility]; Protocol Stop: 04/19/25 10:31 Last Admin: 04/14/25 08:53 Dose: 50 mls Insulin Glargine (Insulin Glargine 100 Unit/Ml) 10 unit SQ BID [facility] Last Admin: 04/14/25 21:00 Dose: Not Given Insulin Human Regular (Insulin Regular (Human) 100 Unit/Ml) 0 unit SQ ACHS [facility]; Protocol Last Admin: 04/14/25 21:00 Dose: Not Given Isosorbide Dinitrate (Isosorbide Dinit 5 Mg Tab) 10 mg PO TID [facility] Metoprolol Tartrate (Metoprolol Tar 25 Mg Tab) 25 mg PO BID 6AM 6PM [facility] Last Admin: 04/15/25 06:00 Dose: Not Given Midodrine (Midodrine Hcl 5 Mg Tablet) 5 mg PO TID [facility] Last Admin: 04/14/25 22:21 Dose: 5 mg Assessment/ Plan: Nephrology No dyspnea No chest pain No acute events overnight Fatigue and weakness Vitals, medications, blood work and imaging reviewed in the chart General: In no apparent distress, Oriented x3, Cooperative HEENT: Atraumatic Neck: Supple Respiratory: Normal air movement Cardiovascular: No edema, Regular rate/rhythm Gastrointestinal: Soft and benign, Non-distended Musculoskeletal: No clubbing, No contractures Integumentary: No rashes, No cyanosis Neurological: Normal speech Laboratory Data (last 24 hrs) 04/08/25 04/08/25 04/08/25 09:24 09:24 09:24 WBC 9.90 Hgb 10.3 L Hct 31.4 L Plt Count 121 L PT 17.5 H INR 1.57 Sodium 139 Potassium 4.4 BUN 84 H Creatinine 3.43 H Glucose 230 H Magnesium 2.6 H Total Bilirubin 0.7 AST 16 ALT 23 Alkaline Phosphatase 106 Imagings Data: EXAMINATION: ONE VIEW CHEST XR CLINICAL INDICATION: Male, 79 years old., Fall. Pre-op. Hypertension TECHNIQUE: Frontal chest projection is submitted. Examination is limited by patient positioning and technique. COMPARISON: No prior exam. FINDINGS: The lungs are well inflated and clear of focal consolidation. Central interstitial prominence. No pneumothorax or sizable effusion. Moderate cardiomegaly with left chest wall pacer/AICD in place. Mediastinal contours are otherwise unremarkable. IMPRESSION: Findings suggestive of central congestion or CHF. EXAMINATION: Hip Left 2 View CLINICAL INDICATION: Male, 79 years old. [facility] DEFORM[facility] Bed Name: 13 TECHNIQUE: 2 view radiograph of the left hip were obtained. COMPARISON: No prior exam. FINDINGS: Left intertrochanteric comminuted fracture with displaced fragment at the base of the lesser trochanter. Mild hip joint degenerative changes. No Other focal bone lesion. Vascular calcifications, stents, and surgical clips in place. IMPRESSION: Left intertrochanteric comminuted fracture with displaced fragment at the base of the lesser trochanter. LEFT VENTRICULAR WALL MOTION: MODERATE GLOBAL HYPOKINESIS DOPPLER/COLOR FLOW: DIASTOLIC DYFUNCTION COMMENTS: 1. MODERATE REDUCED LEFT VENTRICULAR SYSTOLIC FUNCTION, EJECTION FRACTION 40- 45%, MODERATE GLOBAL HYPOKINESIS 2. DIASTOLIC DYSFUNCTION 3. NORMAL FILLING PRESSURE 4. MILD MITRAL REGURGITATION Conclusions/Impression: 79 yo WM presents to the ER with a Left Femur Fracture following a fall Stage III KADEEM in the setting of hypotension may be ATN CKD IV with Proteinuria -No NSAIDs -TDC placed by Dr. Walker 04-13-25 -HD initiated 04-14-25 -Continue HD as ordered; seen and examined on HD HTN with CKD/ CHF complicated by hypotension Paroxysmal Afib -Continue Metoprolol Systolic Diastolic CHF, chronic LVEF 40% -Daily weight -Low sodium diet -Continue Bumex DM II with CKD & PolyNeuropathy -RISS -Continue Gabapentin BID Acute Liver Injury in the setting of hypotension -Monitor LFT Anemia in chronic illness/ CKD Thrombocytopenia -Monitor H&H -Retacrit prn -PRBC prn CKD MBD Secondary HyperParathyroidism -Continue Cholecalciferol Acute Infective Cystitis Citrobacter -Continue Abx Hospitalist note reviewed Case reviewed with the hospitalist team
--- NOTE | 2025-04-15 10:41 | RAD REPORT ---
EXAMINATION: CT ABDOMEN AND PELVIS WITHOUT CONTRAST CLINICAL INDICATION: worsening renal fxn, UTI, r/o obstruction TECHNIQUE: CT abdomen and pelvis was performed, without IV contrast, as per department protocol. Axia l, sagittal and coronal reconstructions were obtained. One or more of the following dose reduction techniques were used: Automated exposure control, adjustment of the mA and kV according to the patien t size, and iterative reconstruction. Unless otherwise specified, incidental findings do not require dedicated imaging follow-up. COMPARISON: No prior exam. FINDINGS: The lack of intravenous contrast limits the sensitivity of this exam for evaluation of solid visceral organs, vascular structures, and retroperitoneum. LOWER CHEST: Linear atelectasis in the right lung base. Moderate right pleural effusion. LIVER:Normal in size and contour. No focal lesion. Cholecystectomy clips. SPLEEN: Normal size. No focal lesion. PANCREAS: No mass, ductal dilation, or vaughn-pancreatic fluid. ADRENALS: Normal; no mass. KIDNEYS AND URETERS: Mildly atrophic in size and contour. No hydronephrosis. URINARY BLADDER: Normal contour. Small air bubble near bladder. GASTROINTESTINAL TRACT: No evidence of bowel obstruction, significant free fluid, free air or abscess . APPENDIX: Normal appendix. LYMPH NODES: No lymphadenopathy. MUSCULOSKELETAL: Hardware proximal left femur with skin marion laterally related to fracture. ADDITIONAL FINDINGS: Aorto iliac atherosclerosis with bilateral iliac stenting noted. IMPRESSION: No acute abnormalities in the abdomen or pelvis, with evaluation limited by lack of IV contrast. Mildly atrophic kidneys without hydronephrosis. Small air bubble in the urinary bladder could be related to recent instrumentation or infection.. Moderate right pleural effusion with atelectasis in the right lung base.
[2025-04-15] MEDS: HALOPERIDOL LACT 5 MG/ML INJ IV ONE (11:51)
[2025-04-15] MEDS: ISOSORBIDE DINIT 5 MG TAB PO SCH (14:00)
[2025-04-15] MEDS: NICOTINE 14 MG/PAT TD SCH (15:59)
--- NOTE | 2025-04-15 17:29 | P.PN ---
Date of Service: 04/15/25 Subjective: Agitated/confused overnight Received Haldol/Ativan Drowsy this morning, confused ROS: 10 point ROS as noted above, otherwise negative Physical exam GEN: Alert, oriented x 1, confused HEENT: Normal conjunctiva, sclera anicteric CV: Regular rate and rhythm, no edema Pulm: Nonlabored respirations on room air ABD: Soft, nontender, nondistended, Branham catheter in place MSK: Dressing in place to left hip Integumentary: No rashes, TDC placed to right chest wall Neuro: Normal speech, normal affect Vitals reviewed Assessment: Metabolic encephalopathy versus delirium UTI Left intertrochanteric femur fracture Atrial fibrillation on chronic anticoagulation with pacemaker/defibrillator in place Acute blood loss anemia Elevated aminotransferase levels Thrombocytopenia Elevated INR Acute on chronic systolic congestive heart failure 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, uremia Diabetes mellitus type 2insulin-dependent Neuropathy Hypertension Tobacco use disorder Plan: Metabolic encephalopathy versus delirium Continue management of uremia with HD Supportive care Continue PT UTI Continue Rocephin Left intertrochanteric femur fracture S/P repair with CR IM 04/09 PT per Ortho-working with PT Will need SNF at discharge Atrial fibrillation on chronic anticoagulation with pacemaker/defibrillator in place Acute on chronic systolic CHF Cardiology and nephrology following Volume management with dialysis Eliquis on hold now given thrombocytopenia and anemia Monitor CBC/platelet daily Acute blood loss anemia with hypotension Transfusing 1 unit packed red blood cells 04/11 Plan to transfuse an additional 1 unit of PRBC today 04/13 with HD Monitor CBC daily Elevated aminotransferase levels Thrombocytopenia Elevated INR Suspect this is secondary to low blood pressure/shock liver Continue supportive care, check LFTs daily Liver ultrasound- Mild prominence of the hepatic veins and IVC may indicate right heart failure Small right pleural effusion Monitor LFTs daily-improving CT abdomen pelvis performed 04/15 no acute findings- Lactate elevated but improving, Blood cultures obtained 04/15-will need to follow ELIQUIS ON HOLD 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
[2025-04-16 06:09] LABS: Hematocrit 26.1 % (39.6-49.0); Hemoglobin 8.8 g/dL (13.6-17.9); MCH 30.0 pg (27.0-35.0); MCHC 33.8 g/dL (32.0-36.0); MCV 88.9 fL (80-100); MPV 11.5 fL (7.6-11.3); RBC Red Blood Cell Count 2.93 M/uL (4.33-5.43); White Blood Count 8.60 thou/uL (4.3-10.9)
[2025-04-16 06:24] LABS: PT Prothrombin Time 22.2 SECONDS (10-13.0); Protime INR 2.0
[2025-04-16 06:28] LABS: ALT/SGPT 752.0 U/L (16-61); AST/SGOT 686.0 U/L (15-37); Albumin 2.4 g/dL (3.4-5.0); Albumin/Globulin Ratio 0.8 (1.1-1.8); Alkaline Phosphatase 215.0 U/L (45-117); Anion Gap 14.9 mEq/L (5.0-15.0); BUN Blood Urea Nitrogen 96.0 mg/dL (7-18); Globulin 2.9 g/dL (2.3-3.5); Glucose Level 143.0 mg/dL (74-106); Potassium 3.9 mEq/L (3.5-5.1)
[2025-04-16 09:32] LABS: Anisocytosis 1+; Blood Morphology Comment NOTED (NOT SEEN); Ovalocytes SLIGHT; Polychromasia SLIGHT; White Blood Cell Scan OK (OK)
[2025-04-16 11:16] LABS: Arterial Blood Carboxyhemoglob 2.4 % (0.0-1.5); Blood Gas Inspired Oxygen 21.0 %; Blood Gas Oxyhemoglobin 94.6 % (94.0-97.0); Blood O2 Saturation 97.8 % (92.0-98.5)
[2025-04-16 11:47] LABS: Folic Acid, (Folate) 15.8 ng/mL (3.1-17.5)
[2025-04-16 12:03] VITALS: BMI 29.0
[2025-04-16] MEDS: BUMETANIDE 1 MG/4 ML VIAL IV SCH (16:28)
--- NOTE | 2025-04-16 17:40 | P.PN ---
Date of Service: 04/16/25 Subjective: Good conversation this morning Appears to be baseline, follow commands Tolerated dialysis today ROS: 10 point ROS as noted above, otherwise negative Physical exam GEN: Awake, alert, oriented x 1 HEENT: Normal conjunctiva, sclera anicteric CV: A-fib with rate controlled, no edema Pulm: Nonlabored respirations on room air ABD: Soft and nontender on palpation, Branham catheter in place MSK: Dressing in place to left hip CDI Integumentary: No rashes, TDC placed to right chest wall Neuro: Normal speech, normal affect Vitals reviewed Assessment: Metabolic encephalopathy versus delirium UTI Left intertrochanteric femur fracture Atrial fibrillation on chronic anticoagulation with pacemaker/defibrillator in place Acute blood loss anemia Elevated aminotransferase levels Thrombocytopenia Elevated INR Acute on chronic systolic congestive heart failure 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, uremia Diabetes mellitus type 2insulin-dependent Neuropathy Hypertension Tobacco use disorder Plan: Metabolic encephalopathy versus delirium Continue management of uremia with HD Supportive care Continue PT Ammonia 18, vitamin B12 >2000, serum folate 15.8, ABG (pH 7.48, pCO2 30, pO2 89, HCO3 22) UTI Continue Rocephin Left intertrochanteric femur fracture S/P repair with CR IM 04/09 PT per Ortho-working with PT Will need SNF at discharge Atrial fibrillation on chronic anticoagulation with pacemaker/defibrillator in place Acute on chronic systolic CHF Cardiology and nephrology following Volume management with dialysis Eliquis on hold now given thrombocytopenia and anemia Monitor CBC/platelet daily Acute blood loss anemia with hypotension Transfusing 1 unit packed red blood cells 04/11 Plan to transfuse an additional 1 unit of PRBC today 04/13 with HD Monitor CBC daily Elevated aminotransferase levels Thrombocytopenia Elevated INR Suspect this is secondary to low blood pressure/shock liver Continue supportive care, check LFTs daily Liver ultrasound- Mild prominence of the hepatic veins and IVC may indicate right heart failure Small right pleural effusion Monitor LFTs daily-improving CT abdomen pelvis performed 04/15 no acute findings- Lactate elevated but improving, Blood cultures obtained 04/15-will need to follow ELIQUIS ON HOLD 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
--- NOTE | 2025-04-16 20:52 | P.PN ---
Date of Service: 04/16/25 Vital Signs Temp Pulse Resp BP Pulse Ox 97.5 F 96 H 18 128/64 100 04/16/25 16:00 04/16/25 16:00 04/16/25 16:00 04/16/25 16:00 04/16/25 16:00 Medications Hydrocodone Bitart/Acetaminophen (Hydrocodone/Apap 5/325 Mg Tab) 1 tab PO Q6H PRN PRN Reason: Pain scale 5-7 (Moderate) Last Admin: 04/16/25 18:13 Dose: 1 tab Apixaban (Apixaban 2.5 Mg Tablet) 2.5 mg PO BID [facility] Last Admin: 04/13/25 21:31 Dose: 2.5 mg Atorvastatin Calcium (Atorvastatin 40 Mg Tab) 40 mg PO BEDTIME [facility] Last Admin: 04/15/25 21:56 Dose: 40 mg Bumetanide (Bumetanide 1 Mg/4 Ml Vial) 1 mg IV BIDL [facility] Last Admin: 04/16/25 16:28 Dose: 1 mg Cholecalciferol (Vitamin D 5,000 Unit Cap) 5,000 unit PO DAILY [facility] Last Admin: 04/16/25 08:56 Dose: 5,000 unit Docusate Sodium (Docusate Na 100 Mg Cap) 100 mg PO BID [facility] Last Admin: 04/16/25 08:56 Dose: 100 mg Gabapentin (Gabapentin 300 Mg Cap) 300 mg PO DAILY [facility] Last Admin: 04/16/25 08:56 Dose: 300 mg Heparin Sodium (Porcine) (Heparin 1,000 Unit/Ml Vial) 6,000 unit IV EVERY HD PRN PRN Reason: FOR DIALYSIS CATHETER CARE Last Admin: 04/16/25 15:40 Dose: 6,000 unit Sodium Chloride (Sodium Chloride) 250 mls @ 0 mls/hr IV .Q0M [facility] Ceftriaxone Sodium 1,000 mg/ (Sodium Chloride) 50 mls @ 100 mls/hr IVPB DAILY [facility]; Protocol Stop: 04/19/25 10:31 Last Admin: 04/16/25 08:53 Dose: 50 mls Insulin Glargine (Insulin Glargine 100 Unit/Ml) 10 unit SQ BID [facility] Last Admin: 04/16/25 09:02 Dose: 10 unit Insulin Human Regular (Insulin Regular (Human) 100 Unit/Ml) 0 unit SQ ACHS [facility]; Protocol Last Admin: 04/16/25 16:28 Dose: 3 unit Isosorbide Dinitrate (Isosorbide Dinit 5 Mg Tab) 10 mg PO TID [facility] Last Admin: 04/16/25 13:06 Dose: Not Given Metoprolol Tartrate (Metoprolol Tar 25 Mg Tab) 25 mg PO BID 6AM 6PM [facility] Last Admin: 04/16/25 16:28 Dose: 25 mg Midodrine (Midodrine Hcl 5 Mg Tablet) 5 mg PO TID [facility] Last Admin: 04/16/25 13:06 Dose: Not Given Nicotine (Nicotine 14 Mg/Pat) 14 mg TD DAILY [facility] Last Admin: 04/16/25 08:54 Dose: 14 mg Assessment/ Plan: Nephrology No dyspnea No chest pain No acute events overnight Fatigue and weakness Vitals, medications, blood work and imaging reviewed in the chart General: In no apparent distress, Oriented x3, Cooperative HEENT: Atraumatic Neck: Supple Respiratory: Normal air movement Cardiovascular: No edema, Regular rate/rhythm Gastrointestinal: Soft and benign, Non-distended Musculoskeletal: No clubbing, No contractures Integumentary: No rashes, No cyanosis Neurological: Normal speech Laboratory Data (last 24 hrs) 04/08/25 04/08/25 04/08/25 09:24 09:24 09:24 WBC 9.90 Hgb 10.3 L Hct 31.4 L Plt Count 121 L PT 17.5 H INR 1.57 Sodium 139 Potassium 4.4 BUN 84 H Creatinine 3.43 H Glucose 230 H Magnesium 2.6 H Total Bilirubin 0.7 AST 16 ALT 23 Alkaline Phosphatase 106 Imagings Data: EXAMINATION: ONE VIEW CHEST XR CLINICAL INDICATION: Male, 79 years old., Fall. Pre-op. Hypertension TECHNIQUE: Frontal chest projection is submitted. Examination is limited by patient positioning and technique. COMPARISON: No prior exam. FINDINGS: The lungs are well inflated and clear of focal consolidation. Central interstitial prominence. No pneumothorax or sizable effusion. Moderate cardiomegaly with left chest wall pacer/AICD in place. Mediastinal contours are otherwise unremarkable. IMPRESSION: Findings suggestive of central congestion or CHF. EXAMINATION: Hip Left 2 View CLINICAL INDICATION: Male, 79 years old. [facility] Bed Name: TECHNIQUE: 2 view radiograph of the left hip were obtained. COMPARISON: No prior exam. FINDINGS: Left intertrochanteric comminuted fracture with displaced fragment at the base of the lesser trochanter. Mild hip joint degenerative changes. No Other focal bone lesion. Vascular calcifications, stents, and surgical clips in place. IMPRESSION: Left intertrochanteric comminuted fracture with displaced fragment at the base of the lesser trochanter. LEFT VENTRICULAR WALL MOTION: MODERATE GLOBAL HYPOKINESIS DOPPLER/COLOR FLOW: DIASTOLIC DYFUNCTION COMMENTS: 1. MODERATE REDUCED LEFT VENTRICULAR SYSTOLIC FUNCTION, EJECTION FRACTION 40- 45%, MODERATE GLOBAL HYPOKINESIS 2. DIASTOLIC DYSFUNCTION 3. NORMAL FILLING PRESSURE 4. MILD MITRAL REGURGITATION Conclusions/Impression: 79 yo WM presents to the ER with a Left Femur Fracture following a fall Stage III KADEEM in the setting of hypotension may be ATN CKD IV with Proteinuria -No NSAIDs -TDC placed by Dr. Walker 04-13-25 -HD initiated 04-14-25 -Continue HD as ordered HTN with CKD/ CHF complicated by hypotension Paroxysmal Afib -Continue Metoprolol Systolic Diastolic CHF, chronic LVEF 40% -Daily weight -Low sodium diet -Continue Bumex DM II with CKD & PolyNeuropathy -RISS -Continue Gabapentin BID Acute Liver Injury in the setting of hypotension -Monitor LFT Anemia in chronic illness/ CKD Thrombocytopenia -Monitor H&H -Retacrit prn -PRBC prn CKD MBD Secondary HyperParathyroidism -Continue Cholecalciferol Acute Infective Cystitis Citrobacter -Continue Abx Hospitalist note reviewed Case reviewed with the hospitalist team
[2025-04-17 08:24] LABS: Hematocrit 28.4 % (39.6-49.0); Hemoglobin 9.4 g/dL (13.6-17.9); MCH 30.0 pg (27.0-35.0); MCHC 33.3 g/dL (32.0-36.0); MCV 90.1 fL (80-100); MPV 11.4 fL (7.6-11.3); RBC Red Blood Cell Count 3.15 M/uL (4.33-5.43); White Blood Count 8.90 thou/uL (4.3-10.9)
[2025-04-17 08:43] LABS: PT Prothrombin Time 18.3 SECONDS (10-13.0); Protime INR 1.64
[2025-04-17 08:45] LABS: ALT/SGPT 566.0 U/L (16-61); AST/SGOT 311.0 U/L (15-37); Albumin 2.6 g/dL (3.4-5.0); Albumin/Globulin Ratio 0.8 (1.1-1.8); Alkaline Phosphatase 234.0 U/L (45-117); Anion Gap 15.0 mEq/L (5.0-15.0); BUN Blood Urea Nitrogen 86.0 mg/dL (7-18); Globulin 3.2 g/dL (2.3-3.5); Glucose Level 239.0 mg/dL (74-106); Potassium 4.0 mEq/L (3.5-5.1)
[2025-04-17] MEDS: LACTULOSE 20 GM/30 ML UCUP PO SCH (15:18)
--- NOTE | 2025-04-17 16:38 | P.PN ---
Date of Service: 04/17/25 Subjective: Sleeping but awakens easily Creatinine still elevated, Nephrology will contiue with dialysis No new complaints ROS: 10 point ROS as noted above, otherwise negative Physical exam GEN: oriented x 1 HEENT: Normal conjunctiva, sclera anicteric CV: A-fib with rate controlled, no edema Pulm: Nonlabored respirations on room air ABD: Soft and nontender on palpation MSK: Dressing in place to left hip CDI Integumentary: No rashes, TDC placed to right chest wall Neuro: Normal speech, normal affect Vitals reviewed Assessment: Metabolic encephalopathy versus delirium UTI Left intertrochanteric femur fracture Atrial fibrillation on chronic anticoagulation with pacemaker/defibrillator in p lace Acute blood loss anemia Elevated aminotransferase levels Thrombocytopenia Elevated INR Acute on chronic systolic congestive heart failure 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, uremia Diabetes mellitus type 2insulin-dependent Neuropathy Hypertension Tobacco use disorder Plan: Metabolic encephalopathy versus delirium Continue management of uremia with HD Supportive care Continue PT Ammonia 18, vitamin B12 >2000, serum folate 15.8, ABG (pH 7.48, pCO2 30, pO2 89, HCO3 22) UTI Continue Rocephin Left intertrochanteric femur fracture S/P repair with CR IM 04/09 PT per Ortho-working with PT Will need SNF at discharge Atrial fibrillation on chronic anticoagulation with pacemaker/defibrillator in place Acute on chronic systolic CHF Cardiology and nephrology following Volume management with dialysis Eliquis on hold now given thrombocytopenia and anemia Monitor CBC/platelet daily Acute blood loss anemia with hypotension Transfusing 1 unit packed red blood cells 04/11 Plan to transfuse an additional 1 unit of PRBC today 04/13 with HD Monitor CBC daily Elevated aminotransferase levels Thrombocytopenia Elevated INR Suspect this is secondary to low blood pressure/shock liver Continue supportive care, check LFTs daily Liver ultrasound- Mild prominence of the hepatic veins and IVC may indicate right heart failure Small right pleural effusion Monitor LFTs daily-improving CT abdomen pelvis performed 04/15 no acute findings- Lactate elevated but improving, Blood cultures obtained 04/15-will need to follow ELIQUIS ON HOLD 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
--- NOTE | 2025-04-17 21:38 | P.PN ---
Date of Service: 04/17/25 Vital Signs Temp Pulse Resp BP Pulse Ox 98.1 F 68 12 105/56 L 100 04/17/25 16:00 04/17/25 16:55 04/17/25 16:00 04/17/25 16:55 04/17/25 16:00 Medications Hydrocodone Bitart/Acetaminophen (Hydrocodone/Apap 5/325 Mg Tab) 1 tab PO Q6H PRN PRN Reason: Pain scale 5-7 (Moderate) Last Admin: 04/17/25 10:13 Dose: 1 tab Apixaban (Apixaban 2.5 Mg Tablet) 2.5 mg PO BID [facility] Last Admin: 04/13/25 21:31 Dose: 2.5 mg Atorvastatin Calcium (Atorvastatin 40 Mg Tab) 40 mg PO BEDTIME [facility] Last Admin: 04/17/25 21:02 Dose: 40 mg Bumetanide (Bumetanide 1 Mg/4 Ml Vial) 1 mg IV BIDL [facility] Last Admin: 04/17/25 16:55 Dose: 1 mg Cholecalciferol (Vitamin D 5,000 Unit Cap) 5,000 unit PO DAILY [facility] Last Admin: 04/17/25 10:05 Dose: 5,000 unit Docusate Sodium (Docusate Na 100 Mg Cap) 100 mg PO BID [facility] Last Admin: 04/17/25 21:02 Dose: 100 mg Gabapentin (Gabapentin 300 Mg Cap) 300 mg PO DAILY [facility] Last Admin: 04/17/25 10:05 Dose: 300 mg Heparin Sodium (Porcine) (Heparin 1,000 Unit/Ml Vial) 6,000 unit IV EVERY HD PRN PRN Reason: FOR DIALYSIS CATHETER CARE Last Admin: 04/16/25 15:40 Dose: 6,000 unit Sodium Chloride (Sodium Chloride) 250 mls @ 0 mls/hr IV .Q0M [facility] Ceftriaxone Sodium 1,000 mg/ (Sodium Chloride) 50 mls @ 100 mls/hr IVPB DAILY [facility]; Protocol Stop: 04/19/25 10:31 Last Admin: 04/17/25 10:04 Dose: 50 mls Insulin Glargine (Insulin Glargine 100 Unit/Ml) 10 unit SQ BID [facility] Last Admin: 04/17/25 21:02 Dose: 10 unit Insulin Human Regular (Insulin Regular (Human) 100 Unit/Ml) 0 unit SQ ACHS [facility]; Protocol Last Admin: 04/17/25 21:02 Dose: 5 unit Isosorbide Dinitrate (Isosorbide Dinit 5 Mg Tab) 10 mg PO TID [facility] Last Admin: 04/17/25 20:48 Dose: Not Given Lactulose (Lactulose 20 Gm/30 Ml Ucup) 20 gm PO Q6H [facility] Last Admin: 04/17/25 21:02 Dose: 20 gm Metoprolol Tartrate (Metoprolol Tar 25 Mg Tab) 25 mg PO BID 6AM 6PM [facility] Last Admin: 04/17/25 16:56 Dose: 25 mg Midodrine (Midodrine Hcl 5 Mg Tablet) 5 mg PO TID [facility] Last Admin: 04/17/25 21:02 Dose: 5 mg Nicotine (Nicotine 14 Mg/Pat) 14 mg TD DAILY [facility] Last Admin: 04/17/25 10:04 Dose: 14 mg Assessment/ Plan: Nephrology No dyspnea No chest pain No acute events overnight Fatigue and weakness Vitals, medications, blood work and imaging reviewed in the chart General: In no apparent distress, Oriented x3, Cooperative HEENT: Atraumatic Neck: Supple Respiratory: Normal air movement Cardiovascular: No edema, Regular rate/rhythm Gastrointestinal: Soft and benign, Non-distended Musculoskeletal: No clubbing, No contractures. Left hip tenderness Integumentary: No rashes, No cyanosis Neurological: Normal speech Laboratory Data (last 24 hrs) 04/08/25 04/08/25 04/08/25 09:24 09:24 09:24 WBC 9.90 Hgb 10.3 L Hct 31.4 L Plt Count 121 L PT 17.5 H INR 1.57 Sodium 139 Potassium 4.4 BUN 84 H Creatinine 3.43 H Glucose 230 H Magnesium 2.6 H Total Bilirubin 0.7 AST 16 ALT 23 Alkaline Phosphatase 106 Imagings Data: EXAMINATION: ONE VIEW CHEST XR CLINICAL INDICATION: Male, 79 years old., Fall. Pre-op. Hypertension TECHNIQUE: Frontal chest projection is submitted. Examination is limited by patient positioning and technique. COMPARISON: No prior exam. FINDINGS: The lungs are well inflated and clear of focal consolidation. Central interstitial prominence. No pneumothorax or sizable effusion. Moderate cardiomegaly with left chest wall pacer/AICD in place. Mediastinal contours are otherwise unremarkable. IMPRESSION: Findings suggestive of central congestion or CHF. EXAMINATION: Hip Left 2 View CLINICAL INDICATION: Male, 79 years old. [facility] Bed Name: 13 TECHNIQUE: 2 view radiograph of the left hip were obtained. COMPARISON: No prior exam. FINDINGS: Left intertrochanteric comminuted fracture with displaced fragment at the base of the lesser trochanter. Mild hip joint degenerative changes. No Other focal bone lesion. Vascular calcifications, stents, and surgical clips in place. IMPRESSION: Left intertrochanteric comminuted fracture with displaced fragment at the base of the lesser trochanter. LEFT VENTRICULAR WALL MOTION: MODERATE GLOBAL HYPOKINESIS DOPPLER/COLOR FLOW: DIASTOLIC DYFUNCTION COMMENTS: 1. MODERATE REDUCED LEFT VENTRICULAR SYSTOLIC FUNCTION, EJECTION FRACTION 40- 45%, MODERATE GLOBAL HYPOKINESIS 2. DIASTOLIC DYSFUNCTION 3. NORMAL FILLING PRESSURE 4. MILD MITRAL REGURGITATION Conclusions/Impression: 79 yo WM presents to the ER with a Left Femur Fracture following a fall Stage III KADEEM in the setting of hypotension may be ATN CKD IV with Proteinuria -No NSAIDs -TDC placed by Dr. Walker 04-13-25 -HD initiated 04-14-25 -HD TIW HTN with CKD/ CHF complicated by hypotension Paroxysmal Afib -Continue Metoprolol Systolic Diastolic CHF, chronic LVEF 40% -Daily weight -Low sodium diet -Continue Bumex DM II with CKD & PolyNeuropathy -RISS -Continue Gabapentin BID Acute Liver Injury in the setting of hypotension -Monitor LFT Anemia in chronic illness/ CKD Thrombocytopenia -Monitor H&H -Retacrit prn -PRBC prn CKD MBD Secondary HyperParathyroidism -Continue Cholecalciferol Acute Infective Cystitis Citrobacter -Continue Abx Hospitalist note reviewed Case reviewed with the hospitalist team
[2025-04-18] MEDS: MIDODRINE HCL 5 MG TABLET PO SCH (06:18)
[2025-04-18 07:06] LABS: PT Prothrombin Time 15.6 SECONDS (10-13.0); Protime INR 1.39
[2025-04-18 07:27] LABS: ALT/SGPT 425.0 U/L (16-61); AST/SGOT 164.0 U/L (15-37); Albumin 2.6 g/dL (3.4-5.0); Albumin/Globulin Ratio 0.8 (1.1-1.8); Alkaline Phosphatase 219.0 U/L (45-117); Anion Gap 13.5 mEq/L (5.0-15.0); BUN Blood Urea Nitrogen 96.0 mg/dL (7-18); Globulin 3.4 g/dL (2.3-3.5); Glucose Level 102.0 mg/dL (74-106); Magnesium 2.6 mg/dL (1.6-2.4); Potassium 3.5 mEq/L (3.5-5.1); Uric Acid 7.9 mg/dL (3.5-7.2)
--- NOTE | 2025-04-18 08:25 | P.PN ---
Date of Service: 04/18/25 Vital Signs Temp Pulse Resp BP Pulse Ox 97 F 88 14 125/61 97 04/18/25 04:00 04/18/25 04:00 04/18/25 04:00 04/18/25 04:00 04/18/25 04:00 Medications Hydrocodone Bitart/Acetaminophen (Hydrocodone/Apap 5/325 Mg Tab) 1 tab PO Q6H PRN PRN Reason: Pain scale 5-7 (Moderate) Last Admin: 04/17/25 10:13 Dose: 1 tab Apixaban (Apixaban 2.5 Mg Tablet) 2.5 mg PO BID [facility] Last Admin: 04/13/25 21:31 Dose: 2.5 mg Atorvastatin Calcium (Atorvastatin 40 Mg Tab) 40 mg PO BEDTIME [facility] Last Admin: 04/17/25 21:02 Dose: 40 mg Bumetanide (Bumetanide 1 Mg/4 Ml Vial) 1 mg IV BIDL [facility] Last Admin: 04/17/25 16:55 Dose: 1 mg Cholecalciferol (Vitamin D 5,000 Unit Cap) 5,000 unit PO DAILY [facility] Last Admin: 04/17/25 10:05 Dose: 5,000 unit Docusate Sodium (Docusate Na 100 Mg Cap) 100 mg PO BID [facility] Last Admin: 04/17/25 21:02 Dose: 100 mg Gabapentin (Gabapentin 300 Mg Cap) 300 mg PO DAILY [facility] Last Admin: 04/17/25 10:05 Dose: 300 mg Heparin Sodium (Porcine) (Heparin 1,000 Unit/Ml Vial) 6,000 unit IV EVERY HD PRN PRN Reason: FOR DIALYSIS CATHETER CARE Last Admin: 04/16/25 15:40 Dose: 6,000 unit Sodium Chloride (Sodium Chloride) 250 mls @ 0 mls/hr IV .Q0M [facility] Ceftriaxone Sodium 1,000 mg/ (Sodium Chloride) 50 mls @ 100 mls/hr IVPB DAILY [facility]; Protocol Stop: 04/19/25 10:31 Last Admin: 04/17/25 10:04 Dose: 50 mls Insulin Glargine (Insulin Glargine 100 Unit/Ml) 10 unit SQ BID [facility] Last Admin: 04/17/25 21:02 Dose: 10 unit Insulin Human Regular (Insulin Regular (Human) 100 Unit/Ml) 0 unit SQ ACHS [facility]; Protocol Last Admin: 04/17/25 21:02 Dose: 5 unit Isosorbide Dinitrate (Isosorbide Dinit 5 Mg Tab) 10 mg PO TID [facility] Lactulose (Lactulose 20 Gm/30 Ml Ucup) 20 gm PO Q6H [facility] Last Admin: 04/18/25 04:17 Dose: 20 gm Metoprolol Tartrate (Metoprolol Tar 25 Mg Tab) 25 mg PO BID 6AM 6PM [facility] Last Admin: 04/18/25 05:44 Dose: Not Given Midodrine (Midodrine Hcl 5 Mg Tablet) 10 mg PO [id number] [facility] Last Admin: 04/18/25 06:18 Dose: 10 mg Nicotine (Nicotine 14 Mg/Pat) 14 mg TD DAILY [facility] Last Admin: 04/17/25 10:04 Dose: 14 mg Assessment/ Plan: Nephrology No dyspnea No chest pain No acute events overnight Fatigue and weakness Vitals, medications, blood work and imaging reviewed in the chart General: In no apparent distress, Oriented x3, Cooperative HEENT: Atraumatic Neck: Supple Respiratory: Normal air movement Cardiovascular: No edema, Regular rate/rhythm Gastrointestinal: Soft and benign, Non-distended Musculoskeletal: No clubbing, No contractures. Left hip tenderness Integumentary: No rashes, No cyanosis Neurological: Normal speech Laboratory Data (last 24 hrs) 04/08/25 04/08/25 04/08/25 09:24 09:24 09:24 WBC 9.90 Hgb 10.3 L Hct 31.4 L Plt Count 121 L PT 17.5 H INR 1.57 Sodium 139 Potassium 4.4 BUN 84 H Creatinine 3.43 H Glucose 230 H Magnesium 2.6 H Total Bilirubin 0.7 AST 16 ALT 23 Alkaline Phosphatase 106 Imagings Data: EXAMINATION: ONE VIEW CHEST XR CLINICAL INDICATION: Male, 79 years old., Fall. Pre-op. Hypertension TECHNIQUE: Frontal chest projection is submitted. Examination is limited by patient positioning and technique. COMPARISON: No prior exam. FINDINGS: The lungs are well inflated and clear of focal consolidation. Central interstitial prominence. No pneumothorax or sizable effusion. Moderate cardiomegaly with left chest wall pacer/AICD in place. Mediastinal contours are otherwise unremarkable. IMPRESSION: Findings suggestive of central congestion or CHF. EXAMINATION: Hip Left 2 View CLINICAL INDICATION: Male, 79 years old. [facility] Bed Name: 13 TECHNIQUE: 2 view radiograph of the left hip were obtained. COMPARISON: No prior exam. FINDINGS: Left intertrochanteric comminuted fracture with displaced fragment at the base of the lesser trochanter. Mild hip joint degenerative changes. No Other focal bone lesion. Vascular calcifications, stents, and surgical clips in place. IMPRESSION: Left intertrochanteric comminuted fracture with displaced fragment at the base of the lesser trochanter. LEFT VENTRICULAR WALL MOTION: MODERATE GLOBAL HYPOKINESIS DOPPLER/COLOR FLOW: DIASTOLIC DYFUNCTION COMMENTS: 1. MODERATE REDUCED LEFT VENTRICULAR SYSTOLIC FUNCTION, EJECTION FRACTION 40- 45%, MODERATE GLOBAL HYPOKINESIS 2. DIASTOLIC DYSFUNCTION 3. NORMAL FILLING PRESSURE 4. MILD MITRAL REGURGITATION Conclusions/Impression: 79 yo WM presents to the ER with a Left Femur Fracture following a fall Stage III KADEEM in the setting of hypotension may be ATN CKD IV with Proteinuria -No NSAIDs -TDC placed by Dr. Walker 04-13-25 -HD initiated 04-14-25 -HD TIW -HD today HTN with CKD/ CHF complicated by hypotension Paroxysmal Afib -Continue Metoprolol Systolic Diastolic CHF, chronic LVEF 40% -Daily weight -Low sodium diet -Continue Bumex DM II with CKD & PolyNeuropathy -RISS -Continue Gabapentin BID Acute Liver Injury in the setting of hypotension -Monitor LFT Anemia in chronic illness/ CKD Thrombocytopenia -Monitor H&H -Retacrit prn -PRBC prn CKD MBD Secondary HyperParathyroidism -Continue Cholecalciferol Acute Infective Cystitis Citrobacter -Continue Abx Hospitalist note reviewed Case reviewed with the hospitalist team
[2025-04-18] MEDS: ISOSORBIDE DINIT 5 MG TAB PO SCH (09:00)
--- NOTE | 2025-04-18 16:53 | P.PN ---
Date of Service: 04/18/25 Subjective: Doing well, tolerating dialysis planning for discharge to [facility] and OP HD TTS No new complaints ROS: 10 point ROS as noted above, otherwise negative Physical exam GEN: alert and oriented x 1 HEENT: Normal conjunctiva, sclera anicteric CV: A-fib with rate controlled, no edema Pulm: Symmetrical chest wall movement, on room air ABD: Soft on palpation, nontender MSK: Dressing in place to left hip CDI Integumentary: No rashes, TDC placed to right chest wall Neuro: Normal speech, normal affect Vitals reviewed Assessment: Metabolic encephalopathy versus delirium UTI Left intertrochanteric femur fracture Atrial fibrillation on chronic anticoagulation with pacemaker/defibrillator in place Acute blood loss anemia Elevated aminotransferase levels Thrombocytopenia Elevated INR Acute on chronic systolic congestive heart failure 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, uremia Diabetes mellitus type 2insulin-dependent Neuropathy Hypertension Tobacco use disorder Plan: Metabolic encephalopathy versus delirium Continue management of uremia with HD Supportive care Continue PT Ammonia 18, vitamin B12 >2000, serum folate 15.8, ABG (pH 7.48, pCO2 30, pO2 89, HCO3 22) UTI Continue Rocephin Left intertrochanteric femur fracture S/P repair with CR IM 04/09 PT per Ortho-working with PT Will need SNF at discharge Atrial fibrillation on chronic anticoagulation with pacemaker/defibrillator in place Acute on chronic systolic CHF Cardiology and nephrology following Volume management with dialysis Eliquis on hold now given thrombocytopenia and anemia Monitor CBC/platelet daily Acute blood loss anemia with hypotension Transfusing 1 unit packed red blood cells 04/11 Plan to transfuse an additional 1 unit of PRBC today 04/13 with HD Monitor CBC daily Elevated aminotransferase levels Thrombocytopenia Elevated INR Suspect this is secondary to low blood pressure/shock liver Continue supportive care, check LFTs daily Liver ultrasound- Mild prominence of the hepatic veins and IVC may indicate right heart failure Small right pleural effusion Monitor LFTs daily-improving CT abdomen pelvis performed 04/15 no acute findings- Lactate elevated but improving, Blood cultures obtained 04/15-will need to follow ELIQUIS ON HOLD 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
[2025-04-19 06:37] LABS: PT Prothrombin Time 15.5 SECONDS (10-13.0); Protime INR 1.38
[2025-04-19 06:44] LABS: ALT/SGPT 305.0 U/L (16-61); AST/SGOT 83.0 U/L (15-37); Albumin 2.4 g/dL (3.4-5.0); Albumin/Globulin Ratio 0.8 (1.1-1.8); Alkaline Phosphatase 194.0 U/L (45-117); Anion Gap 11.5 mEq/L (5.0-15.0); BUN Blood Urea Nitrogen 72.0 mg/dL (7-18); Globulin 3.2 g/dL (2.3-3.5); Glucose Level 239.0 mg/dL (74-106); Potassium 3.5 mEq/L (3.5-5.1)
--- NOTE | 2025-04-19 11:48 | P.PN ---
Nephrology note (S) Pt has been toleratin HD sessions, denies CP or dyspnea, not needing O2, seen working with PT to get to the side of the bed and stand, reports soreness in his hips and thighs Vitals, medications, blood work and imaging reviewed in the chart General: In no apparent distress, NAD, elderly, pale HEENT: Atraumatic, sclera anicteric, not on O2 Neck: Supple, Rt IJ TDC Respiratory: Normal air movement, non tachypnec, b/l air entry Cardiovascular: No edema, Regular rate/rhythm mostly Gastrointestinal: Soft and benign, Non-distended Musculoskeletal: No contractures, shins non tender Integumentary: No rashes Neurological: Normal speech, awake, alert, conversive, no tremors noted Laboratory Data (last 24 hrs) Reviewed in the EMR Conclusions/Impression: Stage III ARF per ESTEFANIA definition with Cr level > 4 mg/dl on underlying long standing CKD IV, followed by Dr. Francis, multifactorial ARF in the setting of hypotension, anemia, low CO state, other. Non anuric -BUN and Cr levels upward rising last week, did Sat proceed with plan to initiate [employer], did request TDC insertion by surgeon, Issa held temp, did resume since no bleeding from TDC site but with low H/H, low plt count and other, will defer to IM team on whether to hold and will need close monitoring -Last HD yesterday, cont iHD TTS -OP HD has been arranged, first OP HD next week -Metab profile stable -Dose meds for reduced CrCl -D/c shi, check random/PVR scan 4h post removal Chronic systolic + diastolic dysfunction. Hypotension in the setting of surgery, anesthesia, blood loss, other Paroxysmal Afib -BP stable, monitor fluid status closely, cont diuretics as non anuric Acute liver injury -Sig elevated LFTs, unclear if related to hypotensive event or other. ALT slowly downward trending Abnormal findings in urine, pyuria, bacteriuria -Citrobacter on culture, complete out Abx course Anemia 2nd to surgical losses, CKD, other -Hb improved to > 9, cont to monitor closely
--- NOTE | 2025-04-19 20:30 | P.PN ---
Date of Service: 04/19/25 Subjective: No new complaints plan for discharge on Tuesday after dialysis No new complaints ROS: 10 point ROS as noted above, otherwise negative Physical exam GEN: AAO x 3, NAD, afebrile HEENT: Normal conjunctiva, sclera anicteric CV: Paced rhythm, S1S2 present Pulm: Symmetrical chest wall movement, on room air ABD: Soft on palpation, active bowel sounds MSK: Dressing in place to left hip CDI Integumentary: TDC placed to right chest wall Neuro: Normal speech, normal affect Vitals reviewed Assessment: Metabolic encephalopathy versus delirium UTI Left intertrochanteric femur fracture Atrial fibrillation on chronic anticoagulation with pacemaker/defibrillator in place Acute blood loss anemia Elevated aminotransferase levels Thrombocytopenia Elevated INR Acute on chronic systolic congestive heart failure 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, uremia Diabetes mellitus type 2insulin-dependent Neuropathy Hypertension Tobacco use disorder Plan: Metabolic encephalopathy versus delirium Continue management of uremia with HD Supportive care Continue PT Ammonia 18, vitamin B12 >2000, serum folate 15.8, ABG (pH 7.48, pCO2 30, pO2 89, HCO3 22) UTI Continue Rocephin Left intertrochanteric femur fracture S/P repair with CR IM 04/09 PT per Ortho-working with PT Will need SNF at discharge Atrial fibrillation on chronic anticoagulation with pacemaker/defibrillator in place Acute on chronic systolic CHF Cardiology and nephrology following Volume management with dialysis Eliquis on hold now given thrombocytopenia and anemia Monitor CBC/platelet daily Acute blood loss anemia with hypotension Transfusing 1 unit packed red blood cells 04/11 Plan to transfuse an additional 1 unit of PRBC today 04/13 with HD Monitor CBC daily Elevated aminotransferase levels Thrombocytopenia Elevated INR Suspect this is secondary to low blood pressure/shock liver Continue supportive care, check LFTs daily Liver ultrasound- Mild prominence of the hepatic veins and IVC may indicate right heart failure Small right pleural effusion Monitor LFTs daily-improving CT abdomen pelvis performed 04/15 no acute findings- Lactate elevated but improving, Blood cultures obtained 04/15-will need to follow ELIQUIS ON HOLD 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
[2025-04-20 06:36] LABS: Albumin 2.5 g/dL (3.4-5.0); Anion Gap 15.5 mEq/L (5.0-15.0); BUN Blood Urea Nitrogen 85.0 mg/dL (7-18); Glucose Level 62.0 mg/dL (74-106); Potassium 3.5 mEq/L (3.5-5.1)
[2025-04-20 08:39] VITALS: TEMP 98
--- NOTE | 2025-04-20 14:43 | PN ---
Date of Progress Note: 04/20/2025 Subjective: The patient was seen and examined during dialysis. He seems confused. Denies any compl aints. Objective: Vital Signs: Have been reviewed and are stable. General: He appears in no acute distress. Lungs: Clear to auscultation with diminished breath sounds. Abdomen: Soft and nontender. Right-sided tunneled dialysis catheter in place as noted. Laboratory Data: Consistent with ESRD and anemia of chronic disease. Current Medications: Have been reviewed as well. Impression: 1. Acute on chronic renal insufficiency, progressing to dialysis at this time. Renal function has si gnificantly worsened where he is currently dialysis dependent. PDC has been placed and plan for plac ement at outpatient dialysis unit. 2. Acute on chronic diastolic dysfunction. Volume status is being managed with dialysis and continue oral diuretics as well. 3. Acute liver injury, currently improving. 4. Possible urinary tract infection. Finished antibiotic course. 5. Anemia secondary to end-stage renal disease, currently stable. Plan: Overall, the patient is clinically stable. Okay to be discharged post dialysis today for [facility] outpatient therapy. VV/MODL Voice ID: [id number] Report ID: [id number]
--- NOTE | 2025-04-20 14:58 | P.DS ---
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 He is typically primarily wheelchair-bound but is able to stand and perform transfers without assistance, he was trying to slide his pants on today when he fell onto his left side which caused a left-sided hip fracture. Patient was evaluated in the emergency department his labs were significant for a creatinine of 3.43, GFR of 17, glucose of 210, troponin of 33.1, BNP of 6980, hip x-ray was performed which showed left intertrochanteric comminuted fracture with displaced fragments at the base of the lesser trochanter, additionally chest x-ray showed findings suggestive of central congestion or CHF. ED physician discussed case with orthopedics, patient will be admitted to the hospitalist service for perioperative evaluation and subsequent management of the left femur fracture Hospital Course: Patient was admitted and treated for the following diagnoses: Metabolic encephalopathy versus delirium Continue management of uremia with HD Supportive care provided with physical therapy Resolution of encephalopathy. UTI Patient tolerated and completed Rocephin Left intertrochanteric femur fracture S/P repair with CR IM 04/09 Patient was discharged to continue physical therapy at inpatient rehab. 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 Eliquis was resumed at discharge. Patient received 1 unit packed red blood cells on 04/11 and 04/13 Patient required hemodialysis, nephrology consulted for proper management, TDC placed 04/13 and initial dialysis on 04/15/2025. Elevated aminotransferase levels Thrombocytopenia Elevated INR Suspect this is secondary to low blood pressure/shock liver Liver ultrasound revealed Mild prominence of the hepatic veins and IVC may indicate right heart failure and small right pleural effusion Patient's lactate elevated but improved, blood cultures drawn but revealed no growth Diabetes mellitus type 2insulin-dependent ACHS Accu-Chek, sliding scale insulin Long-acting insulin added Neuropathy Hypertension PAD Home meds continued with hold parameters Tobacco use disorder Counseled on need for cessation [place] was seen on morning rounds hemodynamically stable and ready for discharge to inpatient rehab. Dr. Garcia and Dr. Harvey cleared [place] for discharge. Physical exam GEN: Alert and oriented x 3 HEENT: Normal conjunctiva, sclera anicteric CV: Paced rhythm, S1S2 present Pulm: Normal air movement, on room air ABD: Soft on palpation, active bowel sounds MSK: Dressing in place to left hip CDI Integumentary: TDC present to right chest wall Neuro: Normal speech, normal affect Vital Signs/Physical Exam: Temp Pulse Resp BP Pulse Ox 98.0 F 74 16 128/66 100 04/20/25 08:00 04/20/25 08:00 04/20/25 08:00 04/20/25 08:00 04/20/25 08:00 Laboratory Data at Discharge: WBC 8.90 thou/uL (4.3-10.9) 04/17/25 07:46 Hgb 9.4 g/dL (13.6-17.9) L 04/17/25 07:46 Hct 28.4 % (39.6-49.0) L 04/17/25 07:46 Plt Count 59 thou/uL (152-406) L D 04/17/25 07:46 PT 15.5 SECONDS (10-13.0) H 04/19/25 06:12 INR 1.38 04/19/25 06:12 Sodium 138 mEq/L (136-145) 04/20/25 05:45 Potassium 3.5 mEq/L (3.5-5.1) 04/20/25 05:45 BUN 85 mg/dL (7-18) H 04/20/25 05:45 Creatinine 3.76 mg/dL (0.70-1.30) H 04/20/25 05:45 Glucose 62 mg/dL (74-106) L 04/20/25 05:45 Uric Acid 7.9 mg/dL (3.5-7.2) H 04/18/25 06:51 Phosphorus 5.1 mg/dL (2.5-4.9) H 04/20/25 05:45 Magnesium 2.6 mg/dL (1.6-2.4) H 04/18/25 06:51 Total Bilirubin 1.9 mg/dL (0.2-1.0) H 04/19/25 06:12 AST 83 U/L (15-37) H 04/19/25 06:12 ALT 305 U/L (16-61) H 04/19/25 06:12 Alkaline Phosphatase 194 U/L (45-117) H 04/19/25 06:12 Home Medications: Atorvastatin Calcium [Lipitor] 1 tab PO DAILY 04/09/25 Bumetanide 2 mg PO BID 04/09/25 Gabapentin 600 mg PO TID 04/09/25 Isosorbide Dinitrate 1 tab PO TID 04/09/25 Apixaban [Eliquis *] 2.5 mg PO BID 30 Days #60 tab 04/20/25 Docusate [Colace Cap*] 100 mg PO BID cap 04/20/25 Isosorbide Dinit [Isordil*] 10 mg PO TID 30 Days #90 tab 04/20/25 Lactulose [Cephulac*] 30 ml PO Q6H 30 Days #1 bottle 04/20/25 Metoprolol Tartrate [Lopressor*] 25 mg PO BID 6AM 6PM 30 Days #60 tab 04/20/25 Midodrine HCl [Proamatine*] 10 mg PO [id number] 30 Days #60 tab 04/20/25 New Medications: Lactulose [Cephulac*] 30 ml PO Q6H 30 Days #1 bottle Apixaban [Eliquis *] 2.5 mg PO BID 30 Days #60 tab Isosorbide Dinit [Isordil*] 10 mg PO TID 30 Days #90 tab Metoprolol Tartrate [Lopressor*] 25 mg PO BID 6AM 6PM 30 Days #60 tab Midodrine HCl [Proamatine*] 10 mg PO [id number] 30 Days #60 tab Physician Discharge Instructions: 1. Please call and schedule a follow-up appointment with your PCP in 3-5 days - Please follow-up with your PCP for medication refills/adjustments 2. Please call and schedule a follow-up appointment with Dr. Francis in 1 week 3. Please call and schedule follow-up appointment with Dr. Durand, Orthopedic, in 1 week 3. Continue renal diet 4. activity restrictions fall precautions 5. Return to the ED if symptoms worsen New medications Lactulose 30 mL every 6 hours Eliquis 2.5 mg twice daily Isordil 10 mg 3 times daily Metoprolol 25 mg twice daily Midodrine 10 mg twice daily on dialysis days and as needed Diet: Renal Activity: Fall precautions Followup: Priyank Woody MD [Primary Care Provider] - Adithya Francis DO [ACTIVE - CAN ADMIT] - Diogo Durand MD [ACTIVE - CAN ADMIT] -
[2025-04-20 16:55] VITALS: BP 122/58
[2025-04-20] MEDS ORDERED: INSULIN GLARGINE 100 UNIT/ML SQ SCH (21:00)
[2025-04-21] MEDS ORDERED: INSULIN GLARGINE 100 UNIT/ML SQ SCH (09:00)
== END 2025-04-20 16:26 | DRG 956 ==
LOC: ER 08:43 → ERHOLD 10:22 → 4TH 11:16 → 3RD-ICU 04-11 15:15 → 2ND 04-12 18:40
PROVIDERS: ADMIT Internal Medicine; ATTEND Internal Medicine
PROC: 0QS736Z Reposition Left Upper Femur with Intramedullary Internal Fixation Device, Percutaneous Approach (ICD-10-PCS; principal; 2025-04-09 13:15)
PROC: 0T9B70Z Drainage of Bladder with Drainage Device, Via Natural or Artificial Opening (ICD-10-PCS; 2025-04-10)
PROC: 30233N1 Transfusion of Nonautologous Red Blood Cells into Peripheral Vein, Percutaneous Approach (ICD-10-PCS; 2025-04-11)
PROC: 0JH63XZ Insertion of Tunneled Vascular Access Device into Chest Subcutaneous Tissue and Fascia, Percutaneous Approach (ICD-10-PCS; 2025-04-13)
PROC: 02HV33Z Insertion of Infusion Device into Superior Vena Cava, Percutaneous Approach (ICD-10-PCS; 2025-04-13)
PROC: 5A1D70Z Performance of Urinary Filtration, Intermittent, Less than 6 Hours Per Day (ICD-10-PCS; 2025-04-14)
PROC: 4A033R1 Measurement of Arterial Saturation, Peripheral, Percutaneous Approach (ICD-10-PCS; 2025-04-16)
DX: S72.142A Displaced intertrochanteric fracture of left femur, initial encounter for closed fracture (principal); S36.119A Unspecified injury of liver, initial encounter; G93.41 Metabolic encephalopathy; I50.23 Acute on chronic systolic (congestive) heart failure; N18.6 End stage renal disease; N17.0 Acute kidney failure with tubular necrosis; D62 Acute posthemorrhagic anemia; N25.81 Secondary hyperparathyroidism of renal origin; N30.00 Acute cystitis without hematuria; I13.2 Hypertensive heart and chronic kidney disease with heart failure and with stage 5 chronic kidney disease, or end stage renal disease; E11.22 Type 2 diabetes mellitus with diabetic chronic kidney disease; E11.42 Type 2 diabetes mellitus with diabetic polyneuropathy; E11.51 Type 2 diabetes mellitus with diabetic peripheral angiopathy without gangrene; D63.1 Anemia in chronic kidney disease; I95.9 Hypotension, unspecified; E78.5 Hyperlipidemia, unspecified; D69.6 Thrombocytopenia, unspecified; I48.0 Paroxysmal atrial fibrillation; N40.0 Benign prostatic hyperplasia without lower urinary tract symptoms; I25.10 Atherosclerotic heart disease of native coronary artery without angina pectoris; F17.210 Nicotine dependence, cigarettes, uncomplicated; Z71.6 Tobacco abuse counseling; Z79.82 Long term (current) use of aspirin; Z79.01 Long term (current) use of anticoagulants; Z79.02 Long term (current) use of antithrombotics/antiplatelets; Z90.49 Acquired absence of other specified parts of digestive tract; Z79.899 Other long term (current) drug therapy; Z95.810 Presence of automatic (implantable) cardiac defibrillator; W18.30XA Fall on same level, unspecified, initial encounter; Y93.89 Activity, other specified; Y92.002 Bathroom of unspecified non-institutional (private) residence as the place of occurrence of the external cause; Y99.9 Unspecified external cause status
CPT/HCPCS: 36415; 36600; 70450; 71045; 74176; 76000; 76705; 80048; 80053; 80069; 80076; 81001; 82043; 82140; 82248; 82435; 82550; 82570; 82607; 82746; 82805; 82947; 83605; 83735; 83880; 84100; 84132; 84156; 84300; 84425; 84484; 84550; 85014; 85018; 85025; 85027; 85610; 86704; 86705; 86706; 86850; 86900; 86901; 86920; 87040; 87077; 87086; 87088; 87186; 87340; 90935; 93005; 93306; 93970; 97110; 97161; 97530; 97542; 99285; A4216; C1752; J0690; J0696; J1630; J1644; J1815; J2003; J2270; J2704; J3010; J7030; J7050; P9016; P9047; Q5106

== ENCOUNTER 2025-04-23 10:41 | Inpatient (IN) | payer OTHER ==
--- NOTE | 2025-04-23 11:09 | RAD REPORT ---
EXAM: CT brain without contrast HISTORY: Declining state;Confused COMPARISON: 04/15/2025 TECHNIQUE: Multiple contiguous axial images were obtained and a CT of the brain without contrast. Sag ittal and coronal reformats were performed. One or more of the following dose reduction techniques were used: Automated exposure control, adjust ment of the mA and/or kV according to patient size, and/or iterative reconstruction. FINDINGS: Mild motion artifact is present. No evidence of hydrocephalus, intracranial hemorrhage, or extra-axial fluid collection. Moderate brain atrophy with moderate periventricular and deep white matter chronic microvascular isc hemic changes present. No evidence of midline shift or areas of brain edema. The calvarium is intact. The visualized paranasal sinuses and mastoid air cells are essentially clear . Left vertebral atherosclerosis. IMPRESSION: No gross evidence of acute intracranial abnormality. Mild motion artifact noted.
--- NOTE | 2025-04-23 11:13 | RAD REPORT ---
EXAMINATION: ONE VIEW CHEST XR CLINICAL INDICATION: AMS TECHNIQUE: Frontal chest projection is submitted. Examination is limited by patient positioning and t echnique. COMPARISON: 04/15/2025, 04/13/2025 FINDINGS: Extensive bilateral pulmonary opacities, greater on the right may represent pulmonary edema or pneumo michael. The heart is mildly to moderately enlarged. Multidetector pacer/stimulator device. Right-sided venous catheters tip in the SVC.
[2025-04-23 11:54] LABS: Absolute Lymphocytes (CBC) 0.4 K/uL (0.7-4.9); Hematocrit 29.5 % (39.6-49.0); Hemoglobin 9.4 g/dL (13.6-17.9); MCH 29.3 pg (27.0-35.0); MCHC 31.9 g/dL (32.0-36.0); MCV 91.7 fL (80-100); MPV 11.8 fL (7.6-11.3); Nucleated RBC Absolute Count 0.0 (0-0); Nucleated Red Blood Cells % 0.3 % (0-0); RBC Red Blood Cell Count 3.21 M/uL (4.33-5.43); White Blood Count 9.50 thou/uL (4.3-10.9)
[2025-04-23 12:03] LABS: PT Prothrombin Time 15.4 SECONDS (10-13.0); PTT, Activated Partial Thromb 27.4 SECONDS (27.2-37.4); Protime INR 1.38
[2025-04-23 12:31] LABS: ALT/SGPT 133.0 U/L (16-61); AST/SGOT 31.0 U/L (15-37); Albumin 2.5 g/dL (3.4-5.0); Albumin/Globulin Ratio 0.7 (1.1-1.8); Alkaline Phosphatase 147.0 U/L (45-117); Anion Gap 16.2 mEq/L (5.0-15.0); BUN Blood Urea Nitrogen 105.0 mg/dL (7-18); Globulin 3.6 g/dL (2.3-3.5); Glucose Level 255.0 mg/dL (74-106); NT PRO-BNP 74498.0 pg/mL (<450); Potassium 4.2 mEq/L (3.5-5.1)
[2025-04-23 12:33] LABS: Troponin High Sensitivity 141.2 (<58.9)
--- NOTE | 2025-04-23 13:08 | ER ---
Nurse's Notes [facility] Name: [place] Miner Age: 79 yrs Sex: Male : 1945 Arrival Date: 04/23/2025 Time: 10:41 Bed 8 Private MD: Diagnosis: Volume overload, pulmonary edema, renal failure, altered mental status Presentation: 04/23 10:55 Chief complaint: EMS states: From [facility], recently admitted there after hip ph sx, [facility] arrived to take him to dialysis where he is a new pt s well pt presented w/ AMS and was unable to sign papers at dialysis so was sent to ED, son at bedside states that pt is normally awake and alert. Coronavirus screen: Vaccine status: Patient reports being unvaccinated. Ebola Screen: No symptoms or risks identified at this time. Initial Sepsis Screen: Does the patient meet any 2 criteria? No. Patient's initial sepsis screen is negative. Does the patient have a suspected source of infection? No. Patient's initial sepsis screen is negative. Risk Assessment: Do you want to hurt yourself or someone else? Unable to obtain. Onset of symptoms was April 23, 2025. 10:55 Method Of Arrival: EMS: [facility] 10:55 Acuity: AUGUSTUS 2 ph Triage Assessment: 10:55 General: Appears in no apparent distress. Behavior is drowsy, listless. Pain: Denies ph pain. Neuro: Level of Consciousness is confused, lethargic, listless, Oriented to person. Cardiovascular: Capillary refill < 3 seconds in bilateral fingers Patient's skin is warm and dry. Cardiovascular: Dialysis shunt: in the anterior aspect of right upper chest. Respiratory: Airway is patent Respiratory effort is even, unlabored. GI: Abdomen is non-distended. Derm: Skin is pink, warm \T\ dry. Historical: - Allergies: 10:58 No Known Allergies; ph - PMHx: 10:58 CAD; diabetes mellitus; dialysis T,TH, Sat (right femoral bypass); ph - PSHx: 10:58 left femoral stent; Pacemaker/Defib; right femoral bypass; ph - Immunization history:: Adult Immunizations unknown. - Infectious Disease History:: Denies. - Social history:: Smoking status: unknown. Screenin:49 [place] ED Fall Risk Assessment (Adult) History of falling in the last 3 months, ph including since admission Yes- single mechanical fall (1 pt) Confusion or Disorientation Yes (5 pts) Intoxicated or Sedated No (0 pts) Impaired Gait Yes (1 pt) Mobility Assist Device Used Yes (1 pt) Altered Elimination Yes (1 pt) Score/Fall Risk Level 3 or more points = High Risk Oriented to surroundings, Maintained a safe environment, Hourly rounding (assess needs \T\ fall precautionary measures) done, Used ambulatory aids as needed (educated on \T\ assisted with). Abuse screen: Denies threats or abuse. Denies injuries from another. Nutritional screening: No deficits noted. Tuberculosis screening: No symptoms or risk factors identified. Assessment: 13:24 Reassessment:. General: SEE TRIAGE ASSESSMENT. ph Vital Signs: 10:55 BP 111 / 67; Pulse 81; Resp 18; Temp 97.2; Pulse Ox 100% on R/A; ph 12:14 BP 113 / 61; Pulse 83; Resp 18; Pulse Ox 98% on R/A; ph 13:22 BP 125 / 67; Pulse 85; Resp 18; Pulse Ox 100% on R/A; ph 14:22 BP 140 / 82; Pulse 87; Resp 18; Temp 97.4; Pulse Ox 99% on R/A; ph ED Course: 10:43 Patient arrived in ED. bd 10:43 Mariella Marin MD is Attending Physician. sp3 10:54 Darya Jones, RN is Primary Nurse. ph 10:58 Triage completed. ph 11:01 CT Head Brain wo Cont In Process Unspecified. EDMS 11:08 Chest Single View XRAY In Process Unspecified. EDMS 11:40 Initial lab(s) drawn, by me, sent to lab. First set of blood cultures drawn by me, ph Second set of blood cultures drawn by de. 11:48 Arm band placed on Patient placed in an exam room, on a stretcher, on cardiac cath lab manager, ph on pulse oximetry. 11:49 Inserted saline lock: 22 gauge in right forearm, using aseptic technique. Blood ph collected. Flushed with 10 mL NS. 12:14 EKG done, by ED staff, reviewed by Mariella Marin MD. ph 13:07 Lico Sanchez MD is Hospitalizing Provider. sp3 13:24 Patient has correct armband on for positive identification. Bed in low position. Call ph light in reach. Side rails up X2. court monitor on. Pulse ox on. NIBP on. Door closed. Noise minimized. Warm blanket given. 13:24 No provider procedures requiring assistance completed. Patient admitted, IV remains in ph place. Administered Medications: No medications were administered Medication: 11:50 VIS not applicable for this client. ph Outcome: 13:08 Decision to Hospitalize by Provider. sp3 14:22 Admitted to Tele accompanied by tech, Other pt transported to dialysis from ED, will go ph to second floor after dialysis 14:22 Condition: good 14:23 Patient left the ED. ph Signatures: Dispatcher [employer] EDMS Nimo Luu Patricia, RN RN ph Mariella Marin MD MD sp3
--- NOTE | 2025-04-23 13:08 | EDPHYS ---
Physician Documentation [facility] Name: Washington Miner Age: 79 yrs Sex: Male : 1945 Arrival Date: 04/23/2025 Time: 10:41 Bed 8 Private MD: ED Physician Mariella Marin HPI: 04/23 11:06 This 79 yrs old Male presents to ER via EMS with complaints of Altered Mental Status. sp3 11:06 79-year-old male with history of diabetes, hypertension, CAD, on Eliquis, presents with sp3 altered mental status. Patient was discharged on Tuesday after left hip fracture and there was some confusion at the [facility] regarding his insulin and he did not receive it for 3 days. He has been altered since then. They would not take him at dialysis secondary to his altered mental status. They activated EMS bring him here for further evaluation. Review of systems, history and physical limited secondary to mental status.. Historical: - Allergies: 10:58 No Known Allergies; ph - PMHx: 10:58 CAD; diabetes mellitus; dialysis T,TH, Sat (right femoral bypass); ph - PSHx: 10:58 left femoral stent; Pacemaker/Defib; right femoral bypass; ph - Immunization history:: Adult Immunizations unknown. - Infectious Disease History:: Denies. - Social history:: Smoking status: unknown. ROS: 11:07 Unable to obtain ROS due to altered mental status, sp3 Exam: 11:07 Constitutional: The patient appears Patient awake and with gag reflex. He is slow to sp3 arouse. Abdomen is soft. Vital signs are normal. Heart rate is normal. No obvious distress noted. Limited exam. 11:07 Unable to obtain exam due to altered mental status, 12:25 ECG was reviewed by the Attending Physician. EKG demonstrates paced rhythm at 80 bpm sp3 with adequate ventricular capture. Vital Signs: 10:55 BP 111 / 67; Pulse 81; Resp 18; Temp 97.2; Pulse Ox 100% on R/A; ph 12:14 BP 113 / 61; Pulse 83; Resp 18; Pulse Ox 98% on R/A; ph 13:22 BP 125 / 67; Pulse 85; Resp 18; Pulse Ox 100% on R/A; ph 14:22 BP 140 / 82; Pulse 87; Resp 18; Temp 97.4; Pulse Ox 99% on R/A; ph MDM: 10:47 Medical Screening Exam initiated sp3 11:08 Data reviewed: vital signs, nurses notes, old medical records, lab test result(s), EKG, sp3 radiologic studies. ED course: 79-year-old male with altered mental status after being discharged from a hip fracture and missing insulin. Differential diagnosis broad includes dehydration, metabolic derangement including HHNK, electrolyte abnormality, ACS, intracranial pathology, infection, pneumonia, UTI, among others. Workup will be broad and include CT scan of the head, chest x-ray, EKG, general labs, UA and general supportive care. Disposition probable admission pending workup and patient course.. 13:06 ED course: Patient will be admitted to Dr. Sanchez and nephrology is being called for sp3 dialysis. Patient is volume overloaded with BNP 75,000, pulmonary edema on x-ray and mild bump in troponin in the setting of hide creatinine 4.7. Potassium is normal. Vital signs remain normal.. 04/23 10:48 Order name: BNP; Complete Time: 12:54 sp3 04/23 10:48 Order name: Blood Culture Adult (2) sp3 04/23 10:48 Order name: CBC with Diff sp3 04/23 10:48 Order name: CMP; Complete Time: 12:54 sp3 04/23 10:48 Order name: Lactate w/ 2H reflex if indic.; Complete Time: 12:54 sp3 04/23 10:48 Order name: Protime (+inr); Complete Time: 12:12 sp3 04/23 10:48 Order name: Ptt, Activated; Complete Time: 12:12 sp3 04/23 10:48 Order name: Troponin HS; Complete Time: 12:54 sp3 / 10:48 Order name: UA Rfx Jossue Cult if indicated sp3 04/23 11:06 Order name: Glucose, Ancillary Testing; Complete Time: 11:09 EDMS 04/23 12:22 Order name: Ghost Lactate-NO COLLECT Timer EDMS 04/23 13:22 Order name: CBC with Automated Diff EDMS 04/23 13:22 Order name: CBC with Automated Diff EDMS 04/23 13:22 Order name: CBC with Automated Diff EDMS 04/23 13:22 Order name: CBC with Automated Diff EDMS 04/23 13:22 Order name: Comprehensive Metabolic Panel EDMS 04/23 13:22 Order name: Comprehensive Metabolic Panel EDMS 04/23 13:22 Order name: Comprehensive Metabolic Panel EDMS 04/23 13:23 Order name: Comprehensive Metabolic Panel EDMS 04/23 10:48 Order name: Chest Single View XRAY; Complete Time: 11:13 sp3 04/23 10:48 Order name: CT Head Brain wo Cont; Complete Time: 11:13 sp3 04/23 10:48 Order name: Cardiac monitoring; Complete Time: 12:14 sp3 04/23 10:48 Order name: EKG - Nurse/Tech; Complete Time: 12:14 sp3 04/23 10:48 Order name: IV Saline Lock - Large Bore; Complete Time: 12:14 sp3 04/23 10:48 Order name: Labs collected and sent; Complete Time: 12:14 sp3 04/23 10:48 Order name: O2 Per Protocol; Complete Time: 12:14 sp3 04/23 10:48 Order name: O2 Sat Monitoring; Complete Time: 12:14 sp3 04/23 10:48 Order name: Vital Signs; Complete Time: 12:14 sp3 Administered Medications: No medications were administered Disposition Summary: 04/23/25 13:08 Hospitalization Ordered Notes: Hospitalization Status: Inpatient Admission sp3 Provider: Lico Sanchez sp3 Location: Telemetry/MedSurg (Inpatient) sp3 Condition: Stable sp3 Problem: an acute exacerbation sp3 Symptoms: have worsened sp3 Bed/Room Type: Standard sp3 Room Assignment: 225(04/23/25 13:30) bd Diagnosis - Volume overload, pulmonary edema, renal failure, altered mental status sp3 Forms: - Medication Reconciliation Form sp3 - SBAR form sp3 - Leadership Thank You Letter sp3 Signatures: Dispatcher [employer] EDMS MarinoNimo barba Jamarcus Garcia, OWNER/OPERATOR-C OWNER/OPERATOR-Cla1 Darya Jones RN RN Mariella Marin MD MD sp3 Corrections: (The following items were deleted from the chart) 10:49 10:49 PROBNP+C.LAB.BRZ ordered. EDMS EDMS 10:49 10:49 BLOOD CULTURE*+BA.LAB.BRZ ordered. EDMS EDMS 10:49 10:49 CBC+H.LAB.BRZ ordered. EDMS EDMS 10:49 10:49 COMPREHENSIVE METABOLIC PANEL+C.LAB.BRZ ordered. EDMS EDMS 10:49 10:49 LACTATE+C.LAB.BRZ ordered. EDMS EDMS 10:49 10:49 PROTIME (+INR)+COAG.LAB.BRZ ordered. EDMS EDMS 10:49 10:49 PTT, ACTIVATED+COAG.LAB.BRZ ordered. EDMS EDMS 10:49 10:49 Troponin High Sensitivity+C.LAB.BRZ ordered. EDMS EDMS 10:49 10:49 UA Rfx Jossue Cult if indicated+U.LAB.BRZ ordered. EDMS EDMS 10:49 10:49 Chest Single View+RAD.RAD.BRZ ordered. EDMS EDMS 10:49 10:49 Head Brain Wo Cont+CT.RAD.BRZ ordered. EDMS EDMS 13:30 13:08 sp3 bd
[2025-04-23] MEDS: FUROSEMIDE 40 MG TABLET PO SCH (13:30)
[2025-04-23 15:38] LABS: Blood Morphology Comment NOTED (NOT SEEN); Macrocytosis SLIGHT; Ovalocytes SLIGHT; White Blood Cell Scan OK (OK)
[2025-04-23 15:59] VITALS: BMI 34.7
[2025-04-23] MEDS: MIDODRINE HCL 5 MG TABLET PO SCH (16:00)
--- NOTE | 2025-04-23 16:29 | P.HP ---
Certification for Inpatient Patient admitted to: Inpatient With expected LOS: >2 Midnights Patient will require the following post-hospital care: None Practitioner: I am a practitioner with admitting privileges, knowledge of patient current condition, hospital course, and medical plan of care. Services: Services provided to patient in accordance with Admission requirements found in Title 42 Section 412.3 of the Code of Federal Regulations Patient History Date of Service: 04/23/25 Reason for admission: Metabolic encephalopathy, uremia History of Present Illness: 79-year-old male with recent admission for left hip fracture complicated with worsening CKD, ESRD and initiated on dialysis presents the emergency department chief complaint of altered mentation. He [facility] and due to present to his outpatient chair time, upon arrival to the dialysis center patient was confused, lethargic and also unable to consent to the dialysis. He was brought to the emergency department for evaluation. Patient was valuated in the emergency department his labs were significant for a BUN of 105 creatinine 4.77 GFR 12 lactic acid 2.5 troponin 141.2 BNP 74,498 platelet count was 99 hemoglobin 9.4 AST 31 ALT 133 alk phos 147 chest x-ray was obtained which demonstrated extensive bilateral pulmonary opacities greater on the right which may represent pulmonary edema or pneumonia. CT was also obtained which was negative for acute findings. Patient to be admitted to the hospital for further management of his encep halopathy, he will require inpatient hemodialysis as well. Allergies No Known Allergies Allergy (Unverified 04/08/25 10:35) Home Medications: Atorvastatin Calcium [Lipitor] 1 tab PO DAILY 04/09/25 Bumetanide 2 mg PO BID 04/09/25 Gabapentin 600 mg PO TID 04/09/25 Isosorbide Dinitrate 1 tab PO TID 04/09/25 Apixaban [Eliquis *] 2.5 mg PO BID 30 Days #60 tab 04/20/25 Docusate [Colace Cap*] 100 mg PO BID cap 04/20/25 Metoprolol Tartrate [Lopressor*] 25 mg PO BID 6AM 6PM 30 Days #60 tab 04/20/25 Insulin Lispro See Protocol SQ ACHS PRN 04/23/25 Lactulose [Cephulac*] 30 ml PO TID PRN 04/23/25 - Past Medical/Surgical History Diabetic: No -: Systolic Diastolic CHF -: Afib -: DM II with Polyneuropathy -: ESRD on HD -: CAD/ PAD/ Carotid Stenosis -: BPH -: Nephrolithiasis -: HLD -: ESRD with HD T,,S -: Pacemaker/defibrillator -: Femoropopliteal bypass -: Cholecystectomy -: Left hip fracture with repair - Social History Smoking Status: Never smoker Alcohol use: No CD- Drugs: No Caffeine use: No Place of Residence: Home Review of Systems 10-point ROS is otherwise unremarkable Respiratory: Shortness of Breath Physical Examination - Physical Exam General: In no apparent distress, Oriented x2, Other (confused) HEENT: Atraumatic, PERRLA, EOMI Neck: Supple, 2+ carotid pulse no bruit, No LAD, Without JVD or thyroid abnormality Respiratory: Clear to auscultation bilaterally, Normal air movement Cardiovascular: Regular rate/rhythm, Normal S1 S2 Gastrointestinal: Normal bowel sounds, No tenderness Musculoskeletal: No tenderness Integumentary: No rashes Neurological: Normal gait, Normal speech, Normal strength at 5/5 x4 extr, Normal affect - Studies Laboratory Data (last 24 hrs) 04/23/25 04/23/25 04/23/25 11:40 11:40 11:40 WBC 9.50 Hgb 9.4 L Hct 29.5 L Plt Count 99 L PT 15.4 H INR 1.38 APTT 27.4 Sodium 137 Potassium 4.2 BUN 105 H Creatinine 4.77 H Glucose 255 H Total Bilirubin 2.0 H AST 31 ALT 133 H Alkaline Phosphatase 147 H Assessment and Plan - Plan Assessment: Acute metabolic encephalopathy/uremia ESRD on HD with volume overload Acute on chronic systolic congestive heart failure Atrial fibrillation on chronic evaluation Diabetes mellitus type 2insulin-dependent History of CAD/PAD/carotid stenosis BPH Hyperlipidemia Plan: Acute metabolic encephalopathy/uremia ESRD on HD with volume overload Acute on chronic systolic congestive heart failure NSTEMI Nephrology arranging for inpatient HD today Worsened psit-di-nael treatments Monitor volume status, mental status closely Daily chemistry Will trend troponins, monitor on telemetry and obtain a cardiology consultation in regards to the elevated troponin which is likely demand ischemia Atrial fibrillation on chronic evaluation Continue Eliquis, metoprolol with hold parameters Diabetes mellitus type 2insulin-dependent ACHS Accu-Chek, sliding scale insulin History of CAD/PAD/carotid stenosis BPH Hyperlipidemia Continue home medications DVT PPX:eliquis Code status:Full code Discharge Plan: Home Plan to discharge in: 72 Hours - Advance Directives Does patient have a Living Will: No Does patient have a Durable POA for Healthcare: No Critical Care: No Time Spent Managing Pts Care (In Minutes): 72
[2025-04-23] MEDS: INSULIN REGULAR (HUMAN) 100 UNIT/ML SQ SCH (16:30)
[2025-04-23] MEDS: METOPROLOL TAR 25 MG TAB PO SCH (18:00)
--- NOTE | 2025-04-23 20:24 | P.PN ---
Brief Renal note (chart review only, full note to follow) Re-admission after pt presented to the OP unit for this first OP HD earlier today after HD initiated on recent admission for ARF on CKD and with HD on Sat prior to discharge. Pt was found to be altered, lethargic, not awakening and not able to sign dialysis consents and given the AMS was referred to the ER. Pt dialyzed earlier today to address azotemia/uremia, volume overload. Will plan to repeat HD tmrw
[2025-04-23] MEDS: APIXABAN 2.5 MG TABLET PO SCH (20:51)
[2025-04-23] MEDS: DOCUSATE NA 100 MG CAP PO SCH (20:51)
[2025-04-24] MEDS: ACETAMINOPHEN 325 MG TABLET PO PRN (04:08)
[2025-04-24 05:04] LABS: Absolute Lymphocytes (CBC) 0.5 K/uL (0.7-4.9); Hematocrit 28.2 % (39.6-49.0); Hemoglobin 9.4 g/dL (13.6-17.9); MCH 30.3 pg (27.0-35.0); MCHC 33.2 g/dL (32.0-36.0); MCV 91.0 fL (80-100); MPV 11.1 fL (7.6-11.3); Nucleated RBC Absolute Count 0.0 (0-0); Nucleated Red Blood Cells % 0.2 % (0-0); RBC Red Blood Cell Count 3.10 M/uL (4.33-5.43); White Blood Count 8.50 thou/uL (4.3-10.9)
[2025-04-24 05:29] LABS: ALT/SGPT 112.0 U/L (16-61); AST/SGOT 29.0 U/L (15-37); Albumin 2.5 g/dL (3.4-5.0); Albumin/Globulin Ratio 0.8 (1.1-1.8); Alkaline Phosphatase 143.0 U/L (45-117); Anion Gap 14.8 mEq/L (5.0-15.0); BUN Blood Urea Nitrogen 72.0 mg/dL (7-18); Globulin 3.0 g/dL (2.3-3.5); Glucose Level 345.0 mg/dL (74-106); Potassium 3.8 mEq/L (3.5-5.1)
[2025-04-24 05:38] LABS: Troponin High Sensitivity 95.0 pg/mL (<58.9)
--- NOTE | 2025-04-24 08:45 | P.PN ---
Date of Service: 04/24/25 Subjective: Mental status initially improved overnight Patient is awake, discussing his neuropathy of his lower extremities which is si milar to his previous complaints Tolerating p.o. plan for repeat HD today No other acute events overnight ROS: 10 point ROS as noted above, otherwise negative Physical exam GEN: Alert, oriented x 2, NAD HEENT: Normal conjunctiva, sclera anicteric CV: Regular rate and rhythm, no edema Pulm: Nonlabored respirations on room air ABD: Soft, nontender, nondistended MSK: No joint tenderness Integumentary: No rashes Neuro: Normal speech, normal affect Vitals reviewed Assessment: Acute metabolic encephalopathy/uremia ESRD on HD with volume overload Acute on chronic systolic congestive heart failure Atrial fibrillation on chronic evaluation Diabetes mellitus type 2insulin-dependent History of CAD/PAD/carotid stenosis BPH Hyperlipidemia Plan: Acute metabolic encephalopathy/uremia ESRD on HD with volume overload Acute on chronic systolic congestive heart failure NSTEMI Had HD 04/23, plan for HD again today 04/24 Mental status improving after HD Daily chemistry Troponin downtrending, denies any chest pain suspect this is demand ischemia from volume overload Atrial fibrillation on chronic evaluation Continue Eliquis, metoprolol with hold parameters Diabetes mellitus type 2insulin-dependent ACHS Accu-Chek, sliding scale insulin History of CAD/PAD/carotid stenosis BPH Hyperlipidemia Continue home medications DVT PPX:eliquis Code status:Full code Discharge Plan: Home Plan to discharge in: 72 Hours Time Spent Managing Pts Care (In Minutes): 35
--- NOTE | 2025-04-24 11:11 | P.CNS ---
Date of Consult: 04/24/25 Chief Complaint: Metabolic encephalopathy, uremia History of Present Illness: Patient with PMH of ESRD on HD, AF s/p ablation and PM placement, also PAD s/p stents placement, heart failure, presented with altered mental status, uremia, more awake today, denies chest pain, no palpitations, no syncope, no breathing problems. Allergies No Known Allergies Allergy (Unverified 04/08/25 10:35) Home medications list reviewed: Yes Home Medications: Atorvastatin Calcium [Lipitor] 1 tab PO DAILY 04/09/25 Bumetanide 2 mg PO BID 04/09/25 Gabapentin 600 mg PO TID 04/09/25 Isosorbide Dinitrate 1 tab PO TID 04/09/25 Apixaban [Eliquis *] 2.5 mg PO BID 30 Days #60 tab 04/20/25 Docusate [Colace Cap*] 100 mg PO BID cap 04/20/25 Metoprolol Tartrate [Lopressor*] 25 mg PO BID 6AM 6PM 30 Days #60 tab 04/20/25 Insulin Lispro See Protocol SQ ACHS PRN 04/23/25 Lactulose [Cephulac*] 30 ml PO TID PRN 04/23/25 - Past Medical/Surgical History Diabetic: No -: Systolic Diastolic CHF -: Afib -: DM II with Polyneuropathy -: ESRD on HD -: CAD/ PAD/ Carotid Stenosis -: BPH -: Nephrolithiasis -: HLD -: ESRD with HD T,Th,S -: Pacemaker/defibrillator -: Femoropopliteal bypass -: Cholecystectomy -: Left hip fracture with repair - Social History Smoking Status: Unknown if ever smoked Alcohol use: No CD- Drugs: No Caffeine use: No Place of Residence: Home Review of Systems 10-point ROS is otherwise unremarkable Physical Examination Temp Pulse Resp BP Pulse Ox 97.5 F 83 20 109/53 L 98 04/24/25 08:00 04/24/25 08:00 04/24/25 08:00 04/24/25 08:00 04/24/25 08:00 General: Alert, In no apparent distress HEENT: Atraumatic, PERRLA, Mucous membr. moist/pink, EOMI, Sclerae nonicteric Neck: Supple, 2+ carotid pulse no bruit, No LAD, Without JVD or thyroid abno rmality Respiratory: Clear to auscultation bilaterally, Normal air movement Cardiovascular: Regular rate/rhythm, Normal S1 S2 Gastrointestinal: Normal bowel sounds, No tenderness Musculoskeletal: No tenderness Integumentary: No rashes Neurological: Normal gait, Normal speech, Normal tone, Normal affect Lymphatics: No axilla or inguinal lymphadenopathy Laboratory Data (last 24 hrs) 04/23/25 04/23/25 04/23/25 11:40 11:40 11:40 WBC 9.50 Hgb 9.4 L Hct 29.5 L Plt Count 99 L PT 15.4 H INR 1.38 APTT 27.4 Sodium 137 Potassium 4.2 BUN 105 H Creatinine 4.77 H Glucose 255 H Total Bilirubin 2.0 H AST 31 ALT 133 H Alkaline Phosphatase 147 H - Problems (1) NSTEMI (non-ST elevated myocardial infarction) Current Visit: Yes Status: Acute Plan: Patient with mild leak in troponin that is down trending. this is most likely type 2 NE from uremia and ESRD continue ASA 81 mg daily no further inpatient cardiac work up needed as patient follow up with [facility] Cardiology. (2) Atrial fibrillation Current Visit: No Status: Acute Plan: s/p ablation in the past, PM, currently paced. continue lopressor 25 mg po BID Continue Eliquis 2.5 mg po BID Monitor on tele (3) Chronic combined systolic and diastolic heart failure Current Visit: No Status: Acute Plan: currently euvolemic on exam patient urine output is minimal and he is dialysis dependant continue volume adjustment through dialysis continue lopressor 25 mg po BID
--- NOTE | 2025-04-24 11:53 | P.PN ---
Nephrology note (S) See consult note from 04/08/25 for full details, pt re-admitted within a week of discharge as on his first OP session yesterday AM pt was found by set up and charger to be obtunded, not awakening to sternal rub, not able to sign dialysis consent, pt referred to the ER and admitted back to the hospital. Vitals, medications, blood work and imaging reviewed in the chart General: In no apparent distress, NAD, elderly, pale HEENT: Atraumatic, sclera anicteric, not on O2 Neck: Supple, Rt IJ TDC Respiratory: Normal air movement, non tachypnec, b/l air entry, reduced at bases Cardiovascular: No edema, Regular rate/rhythm mostly Gastrointestinal: Soft and benign, Non-distended Musculoskeletal: No contractures, shins non tender, left thigh dressing Integumentary: No rashes Neurological: Normal speech, awake, mostly alert, conversive, no tremors noted Laboratory Data (last 24 hrs) Reviewed in the EMR Conclusions/Impression: Stage III ARF per ESTEFANIA definition with Cr level > 4 mg/dl on underlying long standing CKD IV, followed by Dr. Francis, multifactorial ARF in the setting of hypotension, anemia, low CO state, other. -Dialysis dependent renal failure -BUN and Cr levels rise back up in between HD. -Dialyzed yesterday, will not be able to do extra session today due to staffing issues, next HD tmrw for clearance and UF -OP HD has been arranged -Dose meds for reduced CrCl -AMS multifactorial and 2nd to sedating meds (opiate narcotics/gabapentins), renal failure and hyperglycemia -better but limit use of narcotics, lower Gabapentin dose, defer to IM to address elevated BG Chronic systolic + diastolic dysfunction. Hypotension in the setting of surgery, anesthesia, blood loss, other Paroxysmal Afib Acute pulm edema -BP stable for now, monitor fluid status closely, cont diuretics if non anuric. Additional UF tmrw Acute liver injury earlier this mo -Sig elevated LFTs, unclear if related to hypotensive event or other. Slowly improved Anemia 2nd to surgical losses, CKD, other -Hb improved to > 9, cont to monitor closely
[2025-04-24] MEDS: NEPRO SHAKE 237 ML CAN PO SCH (11:55)
[2025-04-24] MEDS ORDERED: GABAPENTIN 100 MG CAP PO SCH (14:00)
[2025-04-24] MEDS: FUROSEMIDE 40 MG TABLET PO SCH (15:50)
[2025-04-24] MEDS: GABAPENTIN 100 MG CAP PO SCH (22:15)
[2025-04-25] MEDS: ONDANSETRON 4 MG/2 ML VIAL IV PRN (00:09)
[2025-04-25 04:51] LABS: Absolute Lymphocytes (CBC) 0.7 K/uL (0.7-4.9); Hematocrit 31.4 % (39.6-49.0); Hemoglobin 10.4 g/dL (13.6-17.9); MCH 30.2 pg (27.0-35.0); MCHC 33.0 g/dL (32.0-36.0); MCV 91.6 fL (80-100); MPV 11.3 fL (7.6-11.3); Nucleated RBC Absolute Count 0.0 (0-0); Nucleated Red Blood Cells % 0.2 % (0-0); RBC Red Blood Cell Count 3.43 M/uL (4.33-5.43); White Blood Count 7.90 thou/uL (4.3-10.9)
[2025-04-25 05:11] LABS: ALT/SGPT 112.0 U/L (16-61); AST/SGOT 27.0 U/L (15-37); Albumin 2.7 g/dL (3.4-5.0); Albumin/Globulin Ratio 0.7 (1.1-1.8); Alkaline Phosphatase 150.0 U/L (45-117); Anion Gap 14.3 mEq/L (5.0-15.0); BUN Blood Urea Nitrogen 93.0 mg/dL (7-18); Globulin 3.7 g/dL (2.3-3.5); Glucose Level 223.0 mg/dL (74-106); Potassium 4.3 mEq/L (3.5-5.1)
--- NOTE | 2025-04-25 11:52 | P.PN ---
Nephrology note (S) See consult note from 04/08/25 for full details, pt re-admitted within a week of discharge as on his first OP session yesterday AM pt was found by charge authorizer to be obtunded, not awakening to sternal rub, not able to sign dialysis consent, pt referred to the ER and admitted back to the hospital. 04/25/25: Pt seen on HD, reports feeling better overall, left hip pain and neuropathy in feet controlled on lower dose Gabapentin, not needing [place]. Denies dyspnea, not on O2 Vitals, medications, blood work and imaging reviewed in the chart General: In no apparent distress, NAD, elderly, pale HEENT: Atraumatic, sclera anicteric, not on O2 Neck: Supple, Rt IJ TDC Respiratory: Normal air movement, non tachypnec, b/l air entry, reduced at bases Cardiovascular: No edema, Regular rate/rhythm mostly Gastrointestinal: Soft and benign, Non-distended Musculoskeletal: No contractures, shins non tender, left thigh dressing Integumentary: No rashes Neurological: Normal speech, awake, alert, conversive, no tremors noted Laboratory Data (last 24 hrs) Reviewed in the EMR Conclusions/Impression: Stage III ARF per ESTEFANIA definition recently with Cr level > 4 mg/dl on underlying long standing CKD IV, followed by Dr. Francis, multifactorial ARF in the setting of hypotension, anemia, low CO state, other. -Dialysis dependent renal failure -BUN and Cr levels rise back up in between HD. -Dialyzed , was not be able to do extra session yesterday due to staffing issues, HD toady for clearance and UF -OP HD has been arranged, if authorization obtained for SNF, will ask unit to accept him on Sat -Dose meds for reduced CrCl -AMS multifactorial and 2nd to sedating meds (opiate narcotics/gabapentins), renal failure and hyperglycemia -resolved, avoid/limit use of narcotics, lowered Gabapentin dose, defer to IM to address elevated BG Chronic systolic + diastolic dysfunction. Hypotension in the setting of surgery, anesthesia, blood loss, other Paroxysmal Afib Acute pulm edema -BP stable for now, monitor fluid status closely, cont diuretics if non anuric. Additional UF today Acute liver injury earlier this mo -Sig elevated LFTs, unclear if related to hypotensive event or other. Slowly improved Anemia 2nd to surgical losses, CKD, other -Hb improved to > 10, cont to monitor closely
--- NOTE | 2025-04-25 13:47 | P.PN ---
Date of Service: 04/25/25 Subjective: Much more alert today No acute events overnight Will have inpatient HD today Needs new auth for SNF ROS: 10 point ROS as noted above, otherwise negative Physical exam GEN: Alert, oriented x 2, NAD HEENT: Normal conjunctiva, sclera anicteric CV: Regular rate and rhythm, no edema Pulm: Nonlabored respirations on room air ABD: Soft, nontender, nondistended MSK: No joint tenderness Integumentary: No rashes Neuro: Normal speech, normal affect Vitals reviewed Assessment: Acute metabolic encephalopathy/uremia ESRD on HD with volume overload Acute on chronic systolic congestive heart failure Atrial fibrillation on chronic evaluation Diabetes mellitus type 2insulin-dependent History of CAD/PAD/carotid stenosis BPH Hyperlipidemia Plan: Acute metabolic encephalopathy/uremia ESRD on HD with volume overload Acute on chronic systolic congestive heart failure NSTEMI Had HD 04/23 Mental status improving after HD HD again today 04/25 Daily chemistry Troponin downtrending, denies any chest pain suspect this is demand ischemia from volume overload Dose of gabapentin reduced to 100 mg twice daily which seems to be controlling his neuropathy as well Atrial fibrillation on chronic evaluation Continue Eliquis, metoprolol with hold parameters Diabetes mellitus type 2insulin-dependent ACHS Accu-Chek, sliding scale insulin History of CAD/PAD/carotid stenosis BPH Hyperlipidemia Continue home medications DVT PPX:eliquis Code status:Full code Discharge Plan: Home Plan to discharge in: 72 Hours Time Spent Managing Pts Care (In Minutes): 35
[2025-04-26 05:59] LABS: Absolute Lymphocytes (CBC) 0.8 K/uL (0.7-4.9); Hematocrit 20.5 % (39.6-49.0); Hemoglobin 6.7 g/dL (13.6-17.9); MCH 30.3 pg (27.0-35.0); MCHC 32.6 g/dL (32.0-36.0); MCV 92.8 fL (80-100); MPV 10.6 fL (7.6-11.3); Nucleated RBC Absolute Count 0.1 (0-0); Nucleated Red Blood Cells % 0.7 % (0-0); RBC Red Blood Cell Count 2.21 M/uL (4.33-5.43); White Blood Count 7.70 thou/uL (4.3-10.9)
[2025-04-26] MEDS ORDERED: SODIUM CHLORIDE 0.9% 10ML INJ IV PRN (06:11)
[2025-04-26 06:17] LABS: ALT/SGPT 68.0 U/L (16-61); AST/SGOT 16.0 U/L (15-37); Albumin 1.9 g/dL (3.4-5.0); Albumin/Globulin Ratio 0.7 (1.1-1.8); Alkaline Phosphatase 102.0 U/L (45-117); Anion Gap 19.7 mEq/L (5.0-15.0); BUN Blood Urea Nitrogen 108.0 mg/dL (7-18); Globulin 2.8 g/dL (2.3-3.5); Glucose Level 296.0 mg/dL (74-106); Potassium 5.7 mEq/L (3.5-5.1)
[2025-04-26 06:23] LABS: Anisocytosis 1+; Blood Morphology Comment NOTED (NOT SEEN); Burr Cells 2+; Polychromasia 1+; White Blood Cell Scan OK (OK)
[2025-04-26] MEDS: PANTOPRAZOLE 40 MG INJ IVP ONE (06:28)
[2025-04-26] MEDS: PANTOPRAZOLE INJ 80 MG in NA CHLORIDE 0.9% 250 ML IV SCH (06:29)
[2025-04-26] MEDS: INSULIN REGULAR (HUMAN) 100 UNIT/ML IV ONE ×2 (06:40→10:51)
[2025-04-26] MEDS ORDERED: NA CHLORIDE 0.9% 250 ML IV SCH (07:00)
[2025-04-26] MEDS: DOPAMINE HCL IN DEXTROSE 5 % 400 MG/250 ML KIT IV ONE (08:18)
[2025-04-26] MEDS: NOREPINEPHRINE BITARTRATE/D5W 4 MG/250 ML KIT IV ONE (08:18)
--- NOTE | 2025-04-26 08:55 | RAD REPORT ---
EXAM: Chest Single View HISTORY: 79 years Male ETT COMPARISON: 04/23/2025 FINDINGS: LUNGS/PLEURA: Bilateral interstitial and airspace disease likely reflecting pulmonary edema. CARDIAC/MEDIASTINUM: Moderate cardiomegaly. UPPER ABDOMEN: No significant abnormality. BONES: No acute abnormality. LINES/TUBES/OTHER: Dialysis catheter with tip at the superior cavoatrial junction. AICD. Endotracheal tube at the lower margin of the clavicular heads in satisfactory position. IMPRESSION: Endotracheal tube in satisfactory position . Pulmonary edema again noted.
[2025-04-26 08:59] LABS: Hematocrit 22.9 % (39.6-49.0); Hemoglobin 6.8 g/dL (13.6-17.9); MCH 29.4 pg (27.0-35.0); MCHC 29.7 g/dL (32.0-36.0); MCV 99.0 fL (80-100); MPV 10.7 fL (7.6-11.3); RBC Red Blood Cell Count 2.31 M/uL (4.33-5.43); White Blood Count 6.70 thou/uL (4.3-10.9)
[2025-04-26] MEDS: PROTHROMBIN COMPLEX CONCENTRATE (HUMAN) 500 UNIT VIAL IV ONE (09:00)
--- NOTE | 2025-04-26 09:03 | RAD REPORT ---
EXAMINATION: Abdomen 1 View (KUB) VIEWS: As above CLINICAL INDICATION: Male, 79 years old. NG/OG TUBE PLCMNT COMPARISON: Same-day chest x-ray IMPRESSION: NG tube tip overlies the lateral stomach in satisfactory position.
[2025-04-26] MEDS: MIDAZOLAM HCL 2 MG/2 ML INJ IV ONE (09:07)
[2025-04-26] MEDS ORDERED: FENTANYL CITR 100 MCG/2 ML IV PRN (09:16)
[2025-04-26] MEDS ORDERED: MIDAZOLAM HCL 2 MG/2 ML INJ IV PRN (09:16)
[2025-04-26 09:23] LABS: ALT/SGPT 93.0 U/L (16-61); AST/SGOT 101.0 U/L (15-37); Albumin 1.7 g/dL (3.4-5.0); Albumin/Globulin Ratio 0.7 (1.1-1.8); Alkaline Phosphatase 102.0 U/L (45-117); Anion Gap 23.0 mEq/L (5.0-15.0); BUN Blood Urea Nitrogen 106.0 mg/dL (7-18); Globulin 2.6 g/dL (2.3-3.5); Glucose Level 290.0 mg/dL (74-106); Magnesium 2.4 mg/dL (1.6-2.4); Potassium 6.0 mEq/L (3.5-5.1)
[2025-04-26] MEDS ORDERED: DOPAMINE/D5W 400 MG/250 ML BAG IV SCH (09:45)
--- NOTE | 2025-04-26 09:57 | P.PN ---
Nephrology note (S) See consult note from 04/08/25 for full details, pt re-admitted within a week of discharge as on his first OP session yesterday AM pt was found by dry charge process attendant to be obtunded, not awakening to sternal rub, not able to sign dialysis consent, pt referred to the ER and admitted back to the hospital. 04/25/25: Pt seen on HD, reports feeling better overall, left hip pain and neuropathy in feet controlled on lower dose Gabapentin, not needing [place]. Denies dyspnea, not on O2 04/26/25: Early AM events noted including bloody BM, sig drop in H/H, pt reportedly was having agonal breathing by the time he arrived at the ICU and underwent PEA arrest needing ACLS/CPR, return of pulse achieved, no shocks admininistered, pt intubated, was put on Levophed/Dopamine, Rt IJ TDC being used as CVC, getting 1 unit PRBC. Shi insert, pt with retention of urine, large volume output. BP on pressor support improved Vitals, medications, blood work and imaging reviewed in the chart General: Intubated HEENT: Atraumatic, sclera anicteric, ET Neck: Supple, Rt IJ TDC Respiratory: Mildly tachypnec, b/l air entry, reduced at bases, scattered rales Cardiovascular: Tachy, mostly regular, left upper chest PPM Gastrointestinal: Soft and benign, Non-distended, shi present Musculoskeletal: No contractures, shins non tender, left thigh dressing Integumentary: No rashes Neurological: Intubated, in restraints, no tremors or restlessness observed Laboratory Data (last 24 hrs) Reviewed in the EMR Conclusions/Impression: Stage III ARF per ESTEFANIA definition recently with Cr level > 4 mg/dl on underlying long standing CKD IV, followed by Dr. Francis, multifactorial ARF in the setting of hypotension, anemia, low CO state, other. -Dialysis dependent renal failure -BUN and Cr levels rise back up in between HD. -Non anuric, making urine. -Retention of urine, shi inserted earlier -Dialyzed Tues, and yesterday for clearance and UF, tolerated session well but no improvement seen in metab profile so unclear if there is recirculation issues -Now s/p arrest, on pressor support, GI bleed, would likely benefit from CRRT but assessing if condition is stabilizing -Dose meds for reduced CrCl Hypotension 2nd to hemorrhagic shock +/- other. Cardiopulmonary arrest multifactorial -Cont pressor support but appears to be responding well to that and transfusion, administer additional crystalloids/colloids for intravascular support as indicated, -AMS earlier in the week multifactorial and 2nd to sedating meds (opiate narcotics/gabapentins), renal failure and hyperglycemia -resolved, avoided use of narcotics, lowered Gabapentin dose Chronic systolic + diastolic dysfunction. Paroxysmal Afib Acute pulm edema earlier in the week -Obtain Cardiology consult, monitor fluid status closely Acute liver injury earlier this mo -Sig elevated LFTs, unclear if related to hypotensive event or other. Slowly improved, will need to monitor in the setting of above Acute loss anemia 2nd to GI bleeding on Eliquis in the setting of chronic anemia 2nd to recent surgical losses, CKD, other -Hb had improved to > 10, but sharply dropped, plan for transfusion of 2 units noted Guarded prognosis, primary team has had several discussions with family on plan of care/goals of care, will seek to discuss with them additionally as well
[2025-04-26] MEDS: CALCIUM GLUCONATE 1 GM IVPB 1 GM/50 ML BAG IV ONE (10:16)
[2025-04-26] MEDS: D50W 25 GM/50 ML SYRINGE IV ONE (10:50)
[2025-04-26] MEDS: SODIUM BICARB 50 MEQ/50ML VIAL IV ONE (10:51)
--- NOTE | 2025-04-26 11:07 | P.CNS ---
Date of Consult: 04/26/25 Reason for Consult: Respiratory failure patient is on a ventilator Chief Complaint: Metabolic encephalopathy, uremia History of Present Illness: Patient is 79 years of age with a history of left hip fracture end-stage renal disease presented to the emergency room with altered mental status apparently he was on the floor with GI bleeding we coded was transferred to the ICU is currently on a ventilator unresponsive history of GI bleed on vasopressors Patient was also on Eliquis Allergies No Known Allergies Allergy (Unverified 04/08/25 10:35) Home Medications: Atorvastatin Calcium [Lipitor] 1 tab PO DAILY 04/09/25 Bumetanide 2 mg PO BID 04/09/25 Gabapentin 600 mg PO TID 04/09/25 Isosorbide Dinitrate 1 tab PO TID 04/09/25 Apixaban [Eliquis *] 2.5 mg PO BID 30 Days #60 tab 04/20/25 Docusate [Colace Cap*] 100 mg PO BID cap 04/20/25 Metoprolol Tartrate [Lopressor*] 25 mg PO BID 6AM 6PM 30 Days #60 tab 04/20/25 Insulin Lispro See Protocol SQ ACHS PRN 04/23/25 Lactulose [Cephulac*] 30 ml PO TID PRN 04/23/25 - Past Medical/Surgical History Diabetic: No -: Systolic Diastolic CHF -: Afib -: DM II with Polyneuropathy -: ESRD on HD -: CAD/ PAD/ Carotid Stenosis -: BPH -: Nephrolithiasis -: HLD -: ESRD with HD T,,S -: Pacemaker/defibrillator -: Femoropopliteal bypass -: Cholecystectomy -: Left hip fracture with repair - Social History Smoking Status: Unknown if ever smoked Alcohol use: No CD- Drugs: No Caffeine use: No Place of Residence: Home Review of Systems is unable to be obtained Physical Examination Temp Pulse Resp BP Pulse Ox 98.2 F 77 20 103/57 L 100 04/26/25 04:00 04/26/25 06:00 04/26/25 04:00 04/26/25 06:00 04/26/25 04:00 General: Unresponsive Respiratory: Clear to auscultation bilaterally Cardiovascular: Normal S1 S2, Edema Gastrointestinal: Soft and benign, Non-distended - Problems (1) Cardiac arrest Current Visit: Yes Status: Acute Plan: Patient is 79 years of age was coded on the floor history of GI bleed developed a PEA he is currently on vasopressors chest x-ray shows some wheeziness on the right side hypotensive on 100% FiO2 will check arterial blood gases end-stage renal disease multiorgan failure abnormal left patient is currently receiving blood transfusions chest x-ray consistent with pulmonary edema DC dopamine continue with Levophed hydrocortisone
[2025-04-26] MEDS: HYDROCORTISONE SUC 100 MG INJ IV SCH (11:35)
[2025-04-26 12:03] LABS: Blood O2 Saturation 47.8 % (92.0-98.5)
[2025-04-26 12:04] LABS: Arterial Blood Carboxyhemoglob 2.0 % (0.0-1.5); Blood Gas Inspired Oxygen 100.0 %; Blood Gas Oxyhemoglobin 60.1 % (94.0-97.0)
[2025-04-26] MEDS: NA CHLORIDE 0.9% 100 ML ONE (12:12)
--- NOTE | 2025-04-26 12:15 | P.DS ---
Admission Date: 04/23/25 Discharge Date: 04/26/25 Disposition: TRANSFER TO [facility] Discharge Condition: CRITICAL Reason for Admission: Metabolic encephalopathy, uremia Brief History of Present Illness: 79-year-old male with recent admission for left hip fracture complicated with worsening CKD, ESRD and initiated on dialysis presents the emergency department chief complaint of altered mentation. He was recently discharged to nursing home facility and due to present to his outpatient chair time, upon arrival to the dialysis center patient was confused, lethargic and also unable to consent to the dialysis. He was brought to the emergency department for evaluation. Patient was valuated in the emergency department his labs were significant for a BUN of 105 creatinine 4.77 GFR 12 lactic acid 2.5 troponin 141.2 BNP 74,498 platelet count was 99 hemoglobin 9.4 AST 31 ALT 133 alk phos 147 chest x-ray was obtained which demonstrated extensive bilateral pulmonary opacities greater on the right which may represent pulmonary edema or pneumonia. CT was also obtained which was negative for acute findings. Patient to be admitted to the hospital for further management of his encephalopathy, he will require inpatient hemodialysis as well. Hospital Course: Assessment: Upper GI bleed Hemorrhagic shock Acute blood loss anemia PEA cardiac arrest status post ROSC ESRD on HD with volume overload, hyperkalemia, metabolic acidosis and hypotension-has tunneled right IJ dialysis catheter Acute metabolic encephalopathy/uremia Acute on chronic systolic congestive heart failure Atrial fibrillation on chronic coagulation History of left hip fracture with CRI M repair 04/09 Diabetes mellitus type 2insulin-dependent History of CAD/PAD/carotid stenosis BPH Hyperlipidemia Patient was admitted to the hospital initially for encephalopathy, volume overload requiring HD. Morning of 04/26 he developed melena and had multiple melanotic stools. He was started on Protonix, GI was consulted and he was moved to the ICU. On his way to the ICU he became hypotensive, upon arrival to the ICU he became unresponsive and was in PEA. CODE BLUE was called and patient was intubated and resuscitated. His morning labs showed hemoglobin of 6.8 and a potassium of 5.7. Blood had already been ordered and he had been given IV push insulin in regards to his potassium. He was given calcium chloride x 2 during the CODE BLUE in addition to epinephrine, sodium bicarb. ROSC was achieved, patient currently receiving 2 units of packed red blood cells, received Kcentra to reverse his Eliquis. He is currently requiring vasopressor therapy with Levophed and dopamine to maintain blood pressures. His chemistry was repeated and showed his potassium was up to 6, he was treated medically for this with IV dextrose, bicarb, insulin, calcium. He requires transfer to tertiary center for CRRT, GI evaluation, higher level of care. Transfer was initiated and he has been accepted to [facility] ICU. Vital Signs/Physical Exam: Temp Pulse Resp BP Pulse Ox 98.2 F 77 20 103/57 L 100 04/26/25 04:00 04/26/25 06:00 04/26/25 04:00 04/26/25 06:00 04/26/25 04:00 General: Unresponsive (Sedated, intubated) HEENT: Atraumatic, PERRLA Neck: Supple Respiratory: Diminished, Crackles/rales Cardiovascular: Irregular heart rate/rhythm Gastrointestinal: Non-distended Musculoskeletal: No contractures Neurological: Other (Sedated, intubated, moving all extremities) Laboratory Data at Discharge: WBC 6.70 thou/uL (4.3-10.9) 04/26/25 08:50 Hgb 6.8 g/dL (13.6-17.9) L 04/26/25 08:50 Hct 22.9 % (39.6-49.0) L 04/26/25 08:50 Plt Count 53 thou/uL (152-406) L 04/26/25 08:50 PT 15.4 SECONDS (10-13.0) H 04/23/25 11:40 INR 1.38 04/23/25 11:40 APTT 27.4 SECONDS (27.2-37.4) 04/23/25 11:40 Sodium Cancelled 04/26/25 13:00 Potassium Cancelled 04/26/25 13:00 BUN Cancelled 04/26/25 13:00 Creatinine Cancelled 04/26/25 13:00 Glucose Cancelled 04/26/25 13:00 Phosphorus Cancelled 04/26/25 07:49 Magnesium 2.4 mg/dL (1.6-2.4) 04/26/25 08:50 Total Bilirubin 1.2 mg/dL (0.2-1.0) H 04/26/25 08:50 AST 101 U/L (15-37) H 04/26/25 08:50 ALT 93 U/L (16-61) H 04/26/25 08:50 Alkaline Phosphatase 102 U/L (45-117) 04/26/25 08:50 Home Medications: Atorvastatin Calcium [Lipitor] 1 tab PO DAILY 04/09/25 Bumetanide 2 mg PO BID 04/09/25 Gabapentin 600 mg PO TID 04/09/25 Isosorbide Dinitrate 1 tab PO TID 04/09/25 Apixaban [Eliquis *] 2.5 mg PO BID 30 Days #60 tab 04/20/25 Docusate [Colace Cap*] 100 mg PO BID cap 04/20/25 Metoprolol Tartrate [Lopressor*] 25 mg PO BID 6AM 6PM 30 Days #60 tab 04/20/25 Insulin Lispro See Protocol SQ ACHS PRN 04/23/25 Lactulose [Cephulac*] 30 ml PO TID PRN 04/23/25 Physician Discharge Instructions: Patient was admitted to the hospital initially for encephalopathy, volume overload requiring HD. Morning of 04/26 he developed melena and had multiple melanotic stools. He was started on Protonix, GI was consulted and he was moved to the ICU. On his way to the ICU he became hypotensive, upon arrival to the ICU he became unresponsive and was in PEA. MATTHEW BLUE was called and patient was intubated and resuscitated. His morning labs showed hemoglobin of 6.8 and a potassium of 5.7. Blood had already been ordered and he had been given IV push insulin in regards to his potassium. He was given calcium chloride x 2 during the CODE BLUE in addition to epinephrine, sodium bicarb. ROSC was achieved, patient currently receiving 2 units of packed red blood cells, received Kcentra to reverse his Eliquis. He is currently requiring vasopressor therapy with Levophed and dopamine to maintain blood pressures. His chemistry was repeated and showed his potassium was up to 6, he was treated medically for this with IV dextrose, bicarb, insulin, calcium. He requires transfer to tertiary center for CRRT, GI evaluation, higher level of care. Transfer was initiated and he has been accepted to [facility] ICU. Followup: NONE,NONE [Primary Care Provider] - Time spent managing pt's care (in minutes): 75
[2025-04-26] MEDS ORDERED: ALBUTEROL 2.5 MG/3 ML NEB SOL NEB SCH (13:00)
[2025-04-26] MEDS: SODIUM BICARB 50 MEQ/50ML VIAL ONE (13:04)
[2025-04-26] MEDS: NOREPINEPHRINE 16 MG in D5W 250 ML IV SCH (13:21)
[2025-04-26 13:26] LABS: Blood O2 Saturation 20.9 % (92.0-98.5)
[2025-04-26] MEDS ORDERED: Calcium Chloride 10% INJ SYR IV ONE ×2 (13:27→13:41)
[2025-04-26] MEDS ORDERED: EPINEPHrine 1 MG/10 ML SYR IV ONE (13:41)
[2025-04-26] MEDS ORDERED: SODIUM CHL 0.9% 100 ML BAG IV ONE (13:41)
[2025-04-26] MEDS ORDERED: SODIUM CHL 0.9% 1000 ML BAG IV ONE (13:41)
[2025-04-26] MEDS ORDERED: ATROPINE SULF 1 MG/10 ML SYR IV ONE (13:41)
[2025-04-26 14:52] VITALS: BP 94/82; TEMP 96.8
== END 2025-04-26 13:42 | disposition short-term general hospital (02) | DRG 70 ==
LOC: ER 10:41 → ERHOLD 13:17 → 2ND 14:06 → 3RD-ICU 04-26 07:50
PROVIDERS: ADMIT Hospitalist; ATTEND Hospitalist
PROC: 5A1D70Z Performance of Urinary Filtration, Intermittent, Less than 6 Hours Per Day (ICD-10-PCS; principal; 2025-04-23)
PROC: 3E033XZ Introduction of Vasopressor into Peripheral Vein, Percutaneous Approach (ICD-10-PCS; 2025-04-23)
PROC: 30233N1 Transfusion of Nonautologous Red Blood Cells into Peripheral Vein, Percutaneous Approach (ICD-10-PCS; 2025-04-26)
PROC: 0DH67UZ Insertion of Feeding Device into Stomach, Via Natural or Artificial Opening (ICD-10-PCS; 2025-04-26)
PROC: 4A033R1 Measurement of Arterial Saturation, Peripheral, Percutaneous Approach (ICD-10-PCS; 2025-04-26)
PROC: 5A12012 Performance of Cardiac Output, Single, Manual (ICD-10-PCS; 2025-04-26)
PROC: 5A1935Z Respiratory Ventilation, Less than 24 Consecutive Hours (ICD-10-PCS; 2025-04-26)
PROC: 0BH17EZ Insertion of Endotracheal Airway into Trachea, Via Natural or Artificial Opening (ICD-10-PCS; 2025-04-26)
PROC: 0T9B70Z Drainage of Bladder with Drainage Device, Via Natural or Artificial Opening (ICD-10-PCS; 2025-04-26)
DX: G93.41 Metabolic encephalopathy (principal); I21.A1 Myocardial infarction type 2; N18.6 End stage renal disease; R57.8 Other shock; I46.9 Cardiac arrest, cause unspecified; I50.23 Acute on chronic systolic (congestive) heart failure; J96.01 Acute respiratory failure with hypoxia; I13.2 Hypertensive heart and chronic kidney disease with heart failure and with stage 5 chronic kidney disease, or end stage renal disease; N17.9 Acute kidney failure, unspecified; D62 Acute posthemorrhagic anemia; E87.20 Acidosis, unspecified; K92.1 Melena; E87.5 Hyperkalemia; E11.22 Type 2 diabetes mellitus with diabetic chronic kidney disease; E11.42 Type 2 diabetes mellitus with diabetic polyneuropathy; E11.65 Type 2 diabetes mellitus with hyperglycemia; E11.51 Type 2 diabetes mellitus with diabetic peripheral angiopathy without gangrene; D63.1 Anemia in chronic kidney disease; I48.0 Paroxysmal atrial fibrillation; E78.5 Hyperlipidemia, unspecified; N40.0 Benign prostatic hyperplasia without lower urinary tract symptoms; I25.10 Atherosclerotic heart disease of native coronary artery without angina pectoris; S72.002D Fracture of unspecified part of neck of left femur, subsequent encounter for closed fracture with routine healing; R41.82 Altered mental status, unspecified; T40.605A Adverse effect of unspecified narcotics, initial encounter; Z78.1 Physical restraint status; Z99.2 Dependence on renal dialysis; Z79.82 Long term (current) use of aspirin; Z79.01 Long term (current) use of anticoagulants; Z90.49 Acquired absence of other specified parts of digestive tract; Z79.899 Other long term (current) drug therapy; Z95.810 Presence of automatic (implantable) cardiac defibrillator; Z91.158 Patient's noncompliance with renal dialysis for other reason
CPT/HCPCS: 36415; 36600; 70450; 71045; 74018; 80053; 82805; 82947; 83605; 83735; 83880; 84132; 84484; 85025; 85027; 85610; 85730; 86850; 86900; 86901; 86920; 87040; 90935; 92950; 93005; 94002; 97110; 97161; 97530; 99285; J0612; J1265; J1644; J1720; J1815; J2250; J2405; J2470; J7050; J7060; J7168; J7613; P9016